=== PATIENT | male | born 1955 | race Caucasian/White ===

== ENCOUNTER 2019-06-03 10:01 | Outpatient (REF) | payer MEDICARE, SELFPAY ==
[2019-06-03 13:16] LABS: Chol HDL Ratio 6.62 mg/dL (1.0-5.00); Cholesterol 192 mg/dL (0-200); Glucose 111 mg/dL (65-115); HDL Cholesterol 29 mg/dL (60-100); LDL Cholesterol Calculated 139 mg/dL (50-129); LDL HDL Ratio 4.79 RATIO (0.00-3.22); Triglycerides 118 mg/dL (0-150)
[2019-06-03 13:27] LABS: Estmated Average Glucose 143; Hemoglobin A1C 6.6 % (4.0-6.0)
== END 2019-06-03 10:02 | disposition home or self-care (01) ==
LOC: LAB 10:01
PROVIDERS: Family Provider Family Medicine; PCP Family Medicine; Visit Provider Dermatology
DX: Z01.89 Encounter for other specified special examinations (principal)
CPT/HCPCS: 80061; 82947; 83036

== ENCOUNTER → 2019-06-14 12:58 | Outpatient (BNVA) | payer MEDICARE, SELFPAY | PROVIDERS: Family Provider Family Medicine; PCP Family Medicine; Visit Provider Anesthesiology | DX: M48.062 Spinal stenosis, lumbar region with neurogenic claudication (principal); M79.651 Pain in right thigh; M79.652 Pain in left thigh; Z79.891 Long term (current) use of opiate analgesic | CPT/HCPCS: 99214 ==

== ENCOUNTER 2019-06-24 03:25 | Emergency (ER) | payer MEDICARE, SELFPAY ==
[2019-06-24 03:32] VITALS: BP 168/100; PULSE 89; RESP 18; O2SAT 97; BMI 37.3
--- NOTE | 2019-06-24 03:35 | PC.NURSE ---
Patient dc'd home in stable condition, dressing in place, no bleeding noted. Home care explained to patient with all questions asked and answered.
--- NOTE | 2019-06-24 03:52 | ED_ITS ---
HPI - Extremity Problem General: Chief complaint: Extremity Injury, Lower Stated complaint: LEFT LEG BLEEDING Time Seen by Provider: 06/24/19 03:30 History of Present Illness: HPI Narrative: Patient has swelling to bilateral lower extremities. Had area on his left leg that started draining couple days ago. Informed scab. He scratched off tonight and then the wound started bleeding and he can get it stopped bleeding prior about 45 minutes ago. He comes in with dressing on that wound. Patient checked his INR prior to coming in and it was 3.3 approximately 1 hour ago. MD Complaint: other (Bleeding wound left lower leg.) Location: left Associated symptoms: Deny fever(s) Review of Systems Narrative: Bleeding wound to left lower leg times minutes to hours. Const: Denies: fever or chills Card: Reports: other (Edema chronic) [facility] PFSH: Medical History (Updated 06/24/19 @ 03:52 by LUIS ANGEL Dodge) Atrial fibrillation Encounter for long-term use of opiate analgesic Opioid contract exists Spinal stenosis, lumbar region with neurogenic claudication Surgical History (Updated 06/14/19 @ 13:40 by Christian Hendricks MD) S/P CABG x 3 Status post endovenous radiofrequency ablation of saphenous vein Family History (Updated 06/14/19 @ 13:34 by Violet Biggs LPN) Other CAD (coronary artery disease) Hypertension Lung disease Social History (Updated 06/14/19 @ 13:34 by Violet Biggs LPN) Smoking and tobacco status: never smoked Alcohol intake: unknown Physical Exam Const: COMMON NORMALS: no apparent distress Skin: NAILS: other (Wound to left lower leg that has been bleeding this evening/morning. Has history of bilateral pedal edema. 2+ edema. Wound is not actively bleeding as pencil lead side possibly to left lower extremity medial aspect about 1 inch above ankle joint) Course Vital Signs: Vital signs: Vital Signs Pulse Rate 89 06/24/19 03:32 Respiratory Rate 18 06/24/19 03:32 Blood Pressure 168/100 06/24/19 03:32 Pulse Oximetry 97 06/24/19 03:32 Discharge Plan Discharge Patient Disposition: Home, Self-Care Clinical Impression: Leg wound, left Qualifiers: Encounter type: initial encounter Qualified Code(s): S81.802A - Unspecified open wound, left lower leg, initial encounter Condition: Stable Prescriptions: No Action tamsulosin 0.4 mg capsule 0.4 mg PO DAILY RF: 0 nitroglycerin [Nitrostat] 0.4 mg tablet, sublingual 0.4 mg SUBLINGUAL Q5M PRN (Reason: Chest Pain) RF: 0 metoprolol tartrate 50 mg tablet 50 mg PO BID RF: 0 digoxin [Digitek] 250 mcg (0.25 mg) tablet 250 mcg PO DAILY RF: 0 ezetimibe [Zetia] 10 mg tablet 10 mg PO DAILY RF: 0 aspirin [Adult Aspirin Regimen] 81 mg tablet,delayed release (DR/EC) 81 mg PO DAILY RF: 0 furosemide [Lasix] 40 mg tablet 40 mg PO DAILY PRN (Reason: swelling) RF: 0 potassium chloride 10 mEq tablet extended release 10 meq PO DAILY PRN (Reason: Hypokalemia) RF: 0 hydrocodone-acetaminophen 10-325 mg tablet 1 tab PO TID PRN (Reason: pain) 30 Days Qty: 90 RF: 0 hydrocodone-acetaminophen 10-325 mg tablet 1 tab PO TID PRN (Reason: pain) 30 Days Qty: 90 RF: 0 warfarin 1 mg tablet 1 mg PO DAILY RF: 0 warfarin 5 mg tablet 5 mg PO DAILY RF: 0 Discharge Orders: Discharge Order (Routine); Ordered 06/24/19 Ordered By: Osmel Gomez Referrals: Kamran Herman MD [Primary Care Provider] - Discharge Diet: Usual diet Discharge Activity: Increase activity as tolerated Patient Instructions: Wound Care (General) Activity Restrictions/Additional Instructions: Keep pressure dressing on for at least 24 hours. Continue to check warfarin as scheduled. Follow-up with family provider if no significant improvement. Coding Level of Care Code ED Housekeeping Supervisor [employer] for Chg Fwd Exam Expanded Problem Focused
== END 2019-06-24 04:44 | disposition home or self-care (01) ==
PROVIDERS: Emergency Provider Nurse Practitioner Family; Family Provider Family Medicine; PCP Family Medicine
DX: S81.802A Unspecified open wound, left lower leg, initial encounter (principal); I48.91 Unspecified atrial fibrillation; Z79.01 Long term (current) use of anticoagulants
CPT/HCPCS: 99281

== ENCOUNTER 2019-07-20 11:03 | Outpatient (CLI) | payer MEDICARE, SELFPAY ==
[2019-07-20 11:42] LABS: Basophils # 0.1 10^3/uL (0.0-0.1); Basophils % 0.6 %; Eosinophils # 0.1 10^3/uL (0.0-0.8); Eosinophils % 0.7 %; Hematocrit 50.4 % (42.0-52.0); Hemoglobin 16.7 g/dL (11.7-16.6); Lymphocytes # 1.7 10^3/uL (0.8-4.8); Lymphocytes % 20.4 %; Mean Corpuscular HGB Conc 33.1 g/dL (30.0-36.0); Mean Corpuscular Hemoglobin 30.9 pg (28.0-34.0); Mean Corpuscular Volume 93.3 fL (80-94); Mean Platelet Volume 9.1 fL (7.4-10.4); Monocytes # 0.7 10^3/uL (0.2-0.9); Monocytes % 7.7 %; Neutrophils % 70.2 %; Nucleated Red Blood Cells % 0 %; Platelet Count 288 10^3/cmm (130-400); Red Cell Distribution Width 13.5 % (12.1-15.1); White Blood Count 8.5 10^3/uL (4.0-10.0)
[2019-07-20 12:06] LABS: Procalcitonin 0.06 ng/mL (0-0.5)
[2019-07-20 12:17] LABS: Alanine Aminotransferase 32 U/L (0-41); Albumin Level 4.4 g/dL (3.5-5.2); Alkaline Phosphatase 107 IU/L (40-130); Anion Gap 18.1 (5-19); Aspartate Amino Transferase 21 U/L (0-40); Blood Urea Nitrogen 10 mg/dL (8-23); C Reactive Protein 3.3 mg/L (0.0-4.9); Calcium 9.8 mg/dL (8.5-10.5); Carbon Dioxide 22 mmol/L (22-29); Chloride 96 mmol/L (98-107); Globulin 3.5 g/dL (1.3-4.6); Glomerular Filtration Rate 167.4 mL/min (90-130); Glucose 121 mg/dL (65-115); Osmolality Calculated 271 mOsm/kg (285-295); Potassium 4.1 mmol/L (3.5-5.1); Sodium 132 mmol/L (136-145); Total Bilirubin 1.5 mg/dL (0.15-1.2); Total Protein 7.9 g/dL (6.6-8.7)
[2019-07-20 12:51] LABS: Erythrocyte Sedimentation Rate 16 mm/hr (0-10)
== END 2019-07-20 11:04 | disposition home or self-care (01) ==
PROVIDERS: Family Provider Family Medicine; PCP Family Medicine; Visit Provider Family Medicine
DX: A28.1 Cat-scratch disease (principal); R50.9 Fever, unspecified; I48.91 Unspecified atrial fibrillation; Z95.1 Presence of aortocoronary bypass graft; Z79.01 Long term (current) use of anticoagulants
CPT/HCPCS: 36415; 80053; 84145; 85025; 85610; 85651; 86140; 87400

== ENCOUNTER 2019-09-22 10:46 | Outpatient (CLI) | payer MEDICARE, SELFPAY ==
[2019-09-22 11:28] LABS: Anion Gap 15.1 (5-19); Blood Urea Nitrogen 16 mg/dL (8-23); Carbon Dioxide 25 mmol/L (22-29); Chloride 103 mmol/L (98-107); Digoxin 0.5 ng/mL (0.6-1.2); Glomerular Filtration Rate 167.4 mL/min (90-130); Glucose 107 mg/dL (65-115); Osmolality Calculated 285 mOsm/kg (285-295); Potassium 4.1 mmol/L (3.5-5.1); Sodium 139 mmol/L (136-145)
== END 2019-09-22 10:47 | disposition home or self-care (01) ==
LOC: LAB 10:52
PROVIDERS: PCP Family Medicine; Visit Provider Internal Medicine Cardiovascular Disease
DX: I50.9 Heart failure, unspecified (principal); I48.91 Unspecified atrial fibrillation; I25.10 Atherosclerotic heart disease of native coronary artery without angina pectoris
CPT/HCPCS: 36415; 80048; 80162

== ENCOUNTER → 2019-09-28 13:46 | Outpatient (BNVA) | payer MEDICARE, SELFPAY | PROVIDERS: PCP Family Medicine; Visit Provider Anesthesiology | DX: G89.29 Other chronic pain (principal); M48.062 Spinal stenosis, lumbar region with neurogenic claudication; M54.42 Lumbago with sciatica, left side; Z79.891 Long term (current) use of opiate analgesic | CPT/HCPCS: 99213; 99214 ==

== ENCOUNTER → 2019-12-07 13:09 | Outpatient (BNVA) | payer MEDICARE, SELFPAY | PROVIDERS: PCP Family Medicine; Visit Provider Anesthesiology | DX: G89.29 Other chronic pain (principal); M54.42 Lumbago with sciatica, left side; M48.062 Spinal stenosis, lumbar region with neurogenic claudication; Z79.891 Long term (current) use of opiate analgesic | CPT/HCPCS: 99213; 99214 ==

== ENCOUNTER → 2020-02-10 13:11 | Outpatient (BNVA) | payer MEDICARE, SELFPAY | PROVIDERS: PCP Family Medicine; Visit Provider Anesthesiology | DX: G89.29 Other chronic pain (principal); M48.062 Spinal stenosis, lumbar region with neurogenic claudication; Z79.891 Long term (current) use of opiate analgesic | CPT/HCPCS: 99212; 99214 ==

== ENCOUNTER → 2020-04-10 12:41 | Outpatient (BNVA) | payer MEDICARE, SELFPAY | PROVIDERS: PCP Family Medicine; Visit Provider Anesthesiology | DX: G89.29 Other chronic pain (principal); M54.42 Lumbago with sciatica, left side; M48.062 Spinal stenosis, lumbar region with neurogenic claudication; Z79.891 Long term (current) use of opiate analgesic; Z79.1 Long term (current) use of non-steroidal anti-inflammatories (NSAID) | CPT/HCPCS: 99212; 99214 ==

== ENCOUNTER 2020-05-01 15:38 | Emergency (ER) | payer MEDICARE, SELFPAY ==
[2020-05-01] VITALS (7 sets, daily range): BP systolic 128–183; BP diastolic 77–114; PULSE 91–117; RESP 18–22; TEMP 36.6; O2SAT 96–98; BMI 35.9
[2020-05-01 16:00] LABS: Glucose Point of Care 164 mg/dL (70-110)
--- NOTE | 2020-05-01 16:06 | PC.NURSE ---
stroke alert called
--- NOTE | 2020-05-01 16:09 | ECG_ITS ---
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 Tender: : 1955 Requested By: London Chin I Order Number: [id number] Reading MD: LOPEZ HORTON Measurements Intervals [place] Rate: 112 P: SD: QRS: -10 QRSD: 102 T: 136 QT: 328 QTc: 448 Interpretive Statements ATRIAL FIBRILLATION WITH RAPID VENTRICULAR RESPONSE MODERATE VOLTAGE CRITERIA FOR LVH, CONSIDER NORMAL VARIANT [MEETS CRITERIA IN ONE OF: R(aVL), S(V1), R(V5), R(V5/V6)+S(V1)] POSSIBLE SEPTAL MYOCARDIAL INFARCTION , OF INDETERMINATE AGE [30 ms Q WAVE IN V1/V2] MODERATE T-WAVE ABNORMALITY, CONSIDER LATERAL ISCHEMIA [-0.1+ mV T WAVE IN I/aVL/V5/V6] Compared to ECG 12/01/2018 18:34:21 T-wave abnormality now present Possible ischemia now present Left-axis deviation no longer present Myocardial infarct finding still present Electronically Signed On 05-01-2020 19:57:10 SHELTER MONITOR by LOPEZ HORTON [id number]
--- NOTE | 2020-05-01 16:09 | CTR_ITS ---
PROCEDURE INFORMATION: Exam: CT Head Without Contrast Exam date and time: 05/01/2020 4:13 PM Age: 65 years old Clinical indication: Altered mental status/memory loss and dizziness; Additional info: Symptoms of acute stroke TECHNIQUE: Imaging protocol: Computed tomography of the head without contrast. Radiation optimization: All CT scans at this facility use at least one of these dose optimization techniques: automated exposure control; mA and/or kV adjustment per patient size (includes targeted exams where dose is matched to clinical indication); or iterative reconstruction. Other technique: STROKE PROTOCOL was implemented. COMPARISON: No relevant prior studies available. RADIATION DOSE METRICS: Total DLP (mGy-cm): 1015.63 FINDINGS: Brain: 4.4 x 3.7 x 2.3 cm left parafalcine occipital lobe hematoma with surrounding edema with differential diagnosis including hemorrhagic amyloid angiopathy versus hemorrhagic infarct versus hemorrhagic metastasis versus spontaneous/hypertensive hemorrhage. Estimated volume 19 cc. No midline shift or significant mass effect. Mild cerebral atrophy and ischemic leukoencephalopathy. Cerebral ventricles: No ventriculomegaly. Bones/joints: Unremarkable. No acute fracture. Paranasal sinuses: Visualized sinuses are unremarkable. No fluid levels. Mastoid air cells: Visualized mastoid air cells are well aerated. Soft tissues: Unremarkable. CT/CT head wo con* [id number] IMPRESSION: 1. 4.4 x 3.7 x 2.3 cm left parafalcine occipital lobe hematoma with surrounding edema with differential diagnosis including hemorrhagic amyloid angiopathy versus hemorrhagic infarct versus hemorrhagic metastasis versus spontaneous/hypertensive hemorrhage. Estimated volume 19 cc. 2. No midline shift or significant mass effect. ASSESSMENT: ASPECTS (Bailey Stroke Program Early CT Score) is 10. Radiation Dose CTDIVOL = (mGy): DLP = 1015.63 (mGy-cm)
[2020-05-01 16:26] LABS: Basophils % 0.5 %; Eosinophils # 0.1 10^3/uL (0.0-0.8); Eosinophils % 1.6 %; Hematocrit 49.1 % (42.0-52.0); Hemoglobin 15.8 g/dL (11.7-16.6); Lymphocytes # 1.4 10^3/uL (0.8-4.8); Lymphocytes % 17.8 %; Mean Corpuscular HGB Conc 32.2 g/dL (30.0-36.0); Mean Corpuscular Hemoglobin 30.5 pg (28.0-34.0); Mean Corpuscular Volume 94.8 fL (80-94); Mean Platelet Volume 9.6 fL (7.4-10.4); Monocytes # 0.5 10^3/uL (0.2-0.9); Monocytes % 6.5 %; Neutrophils # 5.88 10^3/uL (1.8-7.7); Neutrophils % 73.2 %; Nucleated Red Blood Cells % 0 %; Platelet Count 277 10^3/cmm (130-400); Red Blood Count 5.18 10^6/uL (4.1-5.3); Red Cell Distribution Width 13.4 % (12.1-15.1)
[2020-05-01 16:41] LABS: INR 2.08 (0.8-1.2); Partial Thromboplastin Time 36.8 SECONDS (23.9-36.7)
[2020-05-01 16:44] LABS: Alanine Aminotransferase 54 U/L (0-41); Albumin Level 3.9 g/dL (3.5-5.2); Alkaline Phosphatase 121 IU/L (40-130); Anion Gap 10.5 (5-19); Aspartate Amino Transferase 34 U/L (0-40); Blood Urea Nitrogen 12 mg/dL (8-23); Calcium 9.2 mg/dL (8.5-10.5); Carbon Dioxide 28 mmol/L (22-29); Chloride 103 mmol/L (98-107); Globulin 3.6 g/dL (1.3-4.6); Glomerular Filtration Rate 135.2 mL/min (90-130); Glucose 165 mg/dL (65-115); Osmolality Calculated 289 mOsm/kg (285-295); Potassium 3.5 mmol/L (3.5-5.1); Sodium 138 mmol/L (136-145); Total Bilirubin 0.5 mg/dL (0.15-1.2); Total Protein 7.5 g/dL (6.6-8.7)
[2020-05-01] MEDS: esmolol drip 2,500 MG/250 ML PREMIX 29.9 MG IV (16:49)
[2020-05-01 16:56] LABS: Add Urine Microscopic? YES; Bilirubin Urine Neg (Negative); Blood Urine 2+ (Negative); Glucose Urine UA 1+ (Normal); Ketones Urine Negative (Negative); Leukocyte Esterase Urine Negative (Negative); Nitrate Urine Negative (Negative); Protein Urine Neg (Negative); Urine Appearance Clear (CLEAR); Urine Color Straw (Yellow); Urobilinogen Urine Norm (Negative)
[2020-05-01] MEDS: phytonadione (ADULT) 10 MG in sodium chloride 0.9% 50 ML 153 MG IV (17:01)
[2020-05-01 17:10] LABS: Digoxin 0.5 ng/mL (0.6-1.2)
[2020-05-01 17:11] LABS: Add Urine Culture? No; Bacteria Urine TRACE /hpf; Mucus Urine TRACE /hpf; RBC Urine 0-4 /hpf (0-2); Squamous Epithelial Cell Urine 0-4 /hpf (0-5)
[2020-05-01 17:25] LABS: Amphetamines Screen Urine Negative (Negative); Barbiturates Screen Urine Negative (Negative); Benzodiazepines Screen Urine Negative (Negative); Cocaine Screen Urine Negative (Negative); Opiate Screen Urine Positive (Negative); PCP Screen Urine Negative (Negative); THC Screen Urine Negative (Negative)
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
--- NOTE | 2020-05-01 19:08 | PC.NURSE ---
nurse refused to take report at this time, states for me to call back in 20 minutes
[2020-05-01 19:34] LABS: INR 1.41 (0.8-1.2)
--- NOTE | 2020-05-01 19:35 | PC.NURSE ---
report called to yassine ochoa
== END 2020-05-01 20:33 | disposition other institution (70) ==
LOC: ER 16:27
PROVIDERS: Emergency Provider Family Medicine; PCP Family Medicine
DX: R41.82 Altered mental status, unspecified (principal); Z79.01 Long term (current) use of anticoagulants; Z79.82 Long term (current) use of aspirin; I48.91 Unspecified atrial fibrillation; I10 Essential (primary) hypertension; Z95.1 Presence of aortocoronary bypass graft; R42 Dizziness and giddiness
CPT/HCPCS: 12345; 36415; 36416; 51702; 70450; 80053; 80162; 80306; 81001; 82962; 85025; 85610; 85730; 93005; 99283; 99291; 99292; J1953; J3430; J3490; J7168

== ENCOUNTER 2020-05-22 15:14 | Outpatient (CLI) | payer MEDICARE, SELFPAY ==
--- NOTE | 2020-05-22 15:00 | XR_ITS ---
WS: [id number] Exam: XR KUB [id number] Date/Time of Exam: 05/22/2020 3:36 PM Reason For Exam: STONES Comparison 01/11/2019. Tiny calcification superimpose both renal silhouettes most likely indicating bilateral renal calculi. These measure in the range of the 2 to 4 mm each. No sign of bowel obstruction or free air. Visualiz ed organ margins are intact. A segment of wire suture visualized in the upper left abdomen. Degenerat zac changes of the spine and hips. XR/XR KUB [id number] IMPRESSION: 1. Small calcification superimpose both kidneys and most likely represent multi ple bilateral renal stones. 2. No acute abdominal process.
== END 2020-05-22 15:15 | disposition home or self-care (01) ==
LOC: RAD 15:24
PROVIDERS: PCP Family Medicine; Visit Provider Urology
DX: N20.0 Calculus of kidney (principal); Z12.5 Encounter for screening for malignant neoplasm of prostate
CPT/HCPCS: 74018; 81003; G0103

== ENCOUNTER → 2020-05-29 13:05 | Outpatient (BNVA) | payer MEDICARE, SELFPAY | PROVIDERS: PCP Family Medicine; Visit Provider Anesthesiology | DX: G89.29 Other chronic pain (principal); M48.062 Spinal stenosis, lumbar region with neurogenic claudication; Z79.891 Long term (current) use of opiate analgesic | CPT/HCPCS: 99213 ==

== ENCOUNTER → 2020-08-03 13:12 | Outpatient (BNVA) | payer MEDICARE, SELFPAY | PROVIDERS: PCP Family Medicine; Visit Provider Anesthesiology | DX: G89.29 Other chronic pain (principal); M48.062 Spinal stenosis, lumbar region with neurogenic claudication; Z79.891 Long term (current) use of opiate analgesic | CPT/HCPCS: 99213 ==

== ENCOUNTER 2020-08-28 20:44 | Emergency (ER) | payer MEDICARE, SELFPAY ==
--- NOTE | 2020-08-28 20:45 | XRR_ITS ---
PROCEDURE INFORMATION: Exam: XR Chest Exam date and time: 08/28/2020 8:49 PM Age: 65 years old Clinical indication: Other: Sweating, n/v, weakness; Prior surgery; Surgery type: Cabg, stents; Additional info: Diaphoresis, weakness TECHNIQUE: Imaging protocol: XR of the chest. Views: 1 view. COMPARISON: 1. CR Chest 1 [place] [id number] 2018-12-01 16:40 2. CR Chest 1 [place] [id number] 2015-12-21 02:53 3. CR Chest 1 [place] [id number] 2014-10-14 15:12 4. CR Chest 2 views* [id number] 2014-08-27 15:50 FINDINGS: Lungs: Lingular and left lower lobe and right lower lobe infiltrates. Pleural spaces: Unremarkable. No pleural effusion. No pneumothorax. Heart/Mediastinum: See Bones/joints finding. Moderate cardiac enlargement. Bones/joints: Sternotomy wires and mediastinal surgical clips are present, consistent with previous coronary arterial bypass grafting. XR/XR chest 1V portable [id number] IMPRESSION: Lingular and left lower lobe and right lower lobe infiltrates.
--- NOTE | 2020-08-28 20:45 | ECG_ITS ---
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 Measurements Intervals Sanders Rate: 70 P: NM: QRS: -14 QRSD: 113 T: 41 QT: 408 QTc: 441 Interpretive Statements ATRIAL FIBRILLATION MODERATE INTRAVENTRICULAR CONDUCTION DELAY [105+ ms QRS DURATION, 80+ ms Q/S IN V1/V2, NO Q AND 60+ ms R IN I/aVL/V5/V6] MODERATE ST DEPRESSION [0.05+ mV ST DEPRESSION] Compared to ECG 05/01/2020 15:50:34 Intraventricular conduction delay now present ST (T wave) deviation now present Myocardial infarct finding no longer present T-wave abnormality no longer present Possible ischemia no longer present Electronically Signed On 08-29-2020 8:03:52 CDT by Abdullahi Vickers M.D. [id number]
[2020-08-28 20:48] VITALS: BP 145/78; PULSE 70; RESP 18; TEMP 36.6; O2SAT 97; BMI 36.6
--- NOTE | 2020-08-28 20:55 | CTR_ITS ---
PROCEDURE INFORMATION: Exam: CT Head Without Contrast Exam date and time: 08/28/2020 9:14 PM Age: 65 years old Clinical indication: Patient HX: Dizziness with diaphoresis and weakness. History of CVA in April of 2020. ; Additional info: Dizzy, diaphoretic, generally weak TECHNIQUE: Imaging protocol: Computed tomography of the head without contrast. Radiation optimization: All CT scans at this facility use at least one of these dose optimization techniques: automated exposure control; mA and/or kV adjustment per patient size (includes targeted exams where dose is matched to clinical indication); or iterative reconstruction. COMPARISON: CT head wo con* [id number] 05/01/2020 4:10 PM RADIATION DOSE METRICS: Total DLP (mGy-cm): 1322.93 FINDINGS: Brain: A 2.5 cm area of hemorrhage is present in the medial right cerebellar hemisphere. Mild atrophy and mild white matter chronic microvascular changes are noted. No midline shift. Cerebral ventricles: No hydrocephalus Bones/joints: Unremarkable. No acute fracture. Paranasal sinuses: Visualized sinuses are unremarkable. No fluid levels. Mastoid air cells: Visualized mastoid air cells are well aerated. Soft tissues: Unremarkable. CT/CT head wo con* [id number] IMPRESSION: Right cerebellar hemorrhage. No midline shift. Radiation Dose CTDIVOL = (mGy): DLP = 1322.93 (mGy-cm)
[2020-08-28 21:03] LABS: Basophils # 0.1 10^3/uL (0.0-0.1); Basophils % 0.7 %; Eosinophils # 0.2 10^3/uL (0.0-0.8); Eosinophils % 1.8 %; Hematocrit 51.1 % (42.0-52.0); Hemoglobin 16.8 g/dL (11.7-16.6); Lymphocytes # 2.8 10^3/uL (0.8-4.8); Lymphocytes % 27.8 %; Mean Corpuscular HGB Conc 32.9 g/dL (30.0-36.0); Mean Corpuscular Hemoglobin 30.9 pg (28.0-34.0); Mean Corpuscular Volume 93.9 fL (80-94); Mean Platelet Volume 9.8 fL (7.4-10.4); Monocytes # 0.8 10^3/uL (0.2-0.9); Monocytes % 7.6 %; Neutrophils # 6.16 10^3/uL (1.8-7.7); Neutrophils % 61.8 %; Nucleated Red Blood Cells % 0 %; Platelet Count 325 10^3/cmm (130-400); Red Blood Count 5.44 10^6/uL (4.1-5.3); Red Cell Distribution Width 13.6 % (12.1-15.1)
[2020-08-28] MEDS: diphenhydrAMINE 50 mg/mL SDV 1mL IVP (21:05)
[2020-08-28] MEDS: ondansetron 2 mg/ML SDV 2 mL 4 MG IVP (21:06)
[2020-08-28] MEDS: LORazepam 2 mg/mL INJ 1 mL 1 MG IVP (21:06)
--- NOTE | 2020-08-28 21:07 | ED_ITS ---
HPI - Weakness General: Chief complaint: Weakness Stated complaint: WEAKNESS Time Seen by Provider: 08/28/20 20:44 Source: patient, EMS and RN notes reviewed History of Present Illness: HPI Narrative: 65-year-old male on warfarin and aspirin for atrial fibrillation who presents with generalized weakness starting at 8 AM this morning. Patient is diaphoretic, pale but is normotensive and has euglycemia. He has atrial fibrillation but is rate controlled with metoprolol. On review of systems, the patient feels the room is spinning. On close examination he has clockwise rotary nystagmus. His pupils are currently equal and round. Patient reports a recent history of brain bleed in April 2020. I have reviewed the chart and confirm this. Patient reports he is still on warfarin on select days. He denies any trauma. He denies any headache. He reports generalized nonfocal weakness without any acute sensory changes, confusion, trouble with understanding her speech. He denies black or bloody stools. He did have nausea and vomiting. His vomit was not bloody or coffee- ground. A rectal exam was performed at bedside and was negative. Patient denies chest pain or shortness of breath. He does have a history of CABG. Associated symptoms: Reports diaphoresis, nausea and vomiting; Denies chest pain, chills, confusion, dysuria, fever(s), headache(s) or syncope Review of Systems General: Reports: 10 or more systems reviewed and unremarkable except in HPI and below Const: Reports: fatigue, malaise and diaphoresis; Denies: fever(s) or chills Eyes: Reports: blurry vision and other (Blurry vision); Denies: eye redness Card: Reports: edema, swelling of feet/ankles (Chronic) and lightheadedness; Denies: chest pain, palpitations or syncope Resp: Denies: dyspnea, productive cough, non-productive cough, pain on inspiration or hemoptysis GI: Reports: nausea and vomiting; Denies: abdominal pain, hematemesis, coffee ground emesis, dysphagia, heartburn, diarrhea or bloating : Denies: flank pain, difficulty urinating, dysuria, urinary frequency or hematuria Musc: Reports: back pain (Patient reports lumbar, chronic, unchanged); Denies: neck pain or extremity pain Skin/Breast: Reports: changes in skin color; Denies: rash Neuro: Reports: weakness in extremities (Generalized everywhere), difficulty walking, dizziness and vertigo; Denies: headache(s), numbness in extremities, sensory changes, lack of coordination, confusion, behavioral changes, Slurred speech present, difficulty communicating thoughts, seizure-like activity or involuntary movements PFSH ED PFSH: Medical History (Updated 08/28/20 @ 21:33 by Danilo Saenz MD) Atrial fibrillation BPH loc w urin obs/LUTS BPH with obstruction/lower urinary tract symptoms Chronic low back pain CVA (cerebral vascular accident) Encounter for long-term use of opiate analgesic Erectile dysfunction History of CVA (cerebrovascular accident) HTN (hypertension) with goal to be determined Opioid contract exists Spinal stenosis, lumbar region with neurogenic claudication Urolithiasis Surgical History S/P CABG x 3 Status post endovenous radiofrequency ablation of saphenous vein Stented coronary artery Family History Other CAD (coronary artery disease) Hypertension Lung disease Social History Smoking and tobacco status: never smoked Second hand smoke exposure: No Alcohol intake: unknown Adopted: No Caregiver/support person: No Lives independently: No Household members: spouse Marital status: Current occupational status: employed History of recent travel: No Current gender identity: Male Physical Exam Const: COMMON NORMALS: alert EXAM LIMITATIONS: no altered mental status and no language barrier GENERAL APPEARANCE: cooperative, in distress (Extremely weak, feels like things are in slow motion), ill appearing and diaphoretic; no odor of alcohol detected NUTRITIONAL APPEARANCE: obese ORIENTATION/CONSCIOUSNESS: Yes awake, Yes oriented to person, Yes oriented to place and Yes oriented to time HENMT: COMMON NORMALS: normocephalic, atraumatic, external ears normal and Normal external nose present HEAD & SCALP: normal to inspection, normocephalic and atraumatic; no abrasion, no Hoffman's sign, no contusion, no hematoma, no palpable skull fracture and no raccoon eyes FACE & SINUS: normal facial exam and face symmetric NOSE: Normal external nose present; no Nasal discharge present and no Epistaxis present EXTERNAL EAR: Yes external ears normal MOUTH: Normal oral and palatal mucosa present and moist mucous membranes abnormal; no drooling THROAT: uvula midline Eye: COMMON NORMALS: conjunctivae normal and no scleral icterus GENERAL EYE: appearance normal, both eyes and all related structures CONJUNCTIVA: Yes conjunctivae normal OTHER: Patient has equal and round pupils. However extraocular movements are abnormal with clockwise binocular rotary nystagmus from the examiner's viewpoint. There is also some left beating horizontal nystagmus. The patient is able to track my fingers to some degree but it makes him extremely dizzy. Neck/C-Spine: COMMON NORMALS: full ROM, no meningeal signs and no JVD GENERAL: Yes normal visual inspection and Yes trachea midline Resp: COMMON NORMALS: No use of accessory muscles and clear to auscultation bilaterally EFFORT & INSPECTION: Yes able to speak in complete sentences, Yes symmetric chest movement, Yes tachypneic and No respiratory distress AUSCULTATION: clear to auscultation bilaterally Cardio: COMMON NORMALS: no JVD, regular rate and regular rhythm RATE: regular rate RHYTHM: regular rhythm PERIPHERAL PULSES: radial pulses present GI: COMMON NORMALS: Soft to palpation INSPECTION: Yes normal to inspection PALPATION: Yes Soft to palpation, Yes Tenderness to palpation present (GI) (Palpation around the periumbilical region causes urge to defecate), No Guarding due to palpation present (GI), Yes Palpable mass present (? small hernia supraub milical) and No Pulsatile mass present RECTAL EXAM: Yes heme negative stool Back/Pelvis: OTHER: no midline tenderness but with PROM Extremity: COMMON NORMALS: normal to inspection GENERAL: Yes normal exam except as noted Neuro: COMMON NORMALS: moves all extremities, no focal motor deficits and no sensory deficits noted SENSORIUM/ORIENTATION: Yes alert, Yes oriented to person, Yes oriented to place and Yes oriented to time MENINGEAL SIGNS: Yes no meningeal signs CRANIAL NERVES: Yes CN normal except as noted (rotary nystagmus) SPEECH: speech normal GAIT: Yes Unable to assess gait Psych: COMMON NORMALS: mental status grossly normal, Normal thought process present, cooperative, normal affect and speech normal SPEECH: Yes normal speech THOUGHT PROCESS: Normal thought process present Skin: COMMON NORMALS: no rashes or lesions noted, turgor normal and no jaundice GENERAL SKIN EXAM: no rashes or lesions noted and turgor normal Course Vital Signs: Vital signs: Vital Signs Temperature 97.9 F 08/28/20 20:48 Pulse Rate 70 08/28/20 20:48 Respiratory Rate 18 08/28/20 20:48 Blood Pressure 145/78 08/28/20 20:48 Pulse Oximetry 97 08/28/20 20:48 MDM - Weakness MDM Narrative: Medical decision making narrative: GCS 15 NIH--only deficits are weakness in all extremities (drift on all) and rotary nystagmus Patient is diaphoretic generally weak and has rotary nystagmus. Exam was negative for blood. His abdomen does not suggest ruptured aortic aneurysm or dissection. We have emergently taken the patient over for CT scan of the head without contrast. Patient has an active bleed in the left occipital parietal region. This appears to be surrounded by some edema. Currently there is no significant mass-effect. Question whether there is involved tumor. Patient will need to be emergently transferred to facility with neurosurgery in the event that the bleeding worsens. Patient is anticoagulated on warfarin. He will be given 1500 mg of Kcentra. Patient's blood pressure is in the 140s. He will be started on Cardene with a maximum systolic pressure of 120. Dr. Graves at [facility] emergency department has accepted for time critical diagnosis. We have contacted [facility] and the patient will be flown by helicopter. Dr. Graves has accepted at 9:28 PM. Patient is in agreement with the plan. He is full code. Lab Data: Labs: Lab Results 08/28/20 08/28/20 08/28/20 Range/Units 20:34 20:34 20:34 WBC 10.0 (4.0-10.0) 10^3/ uL RBC 5.44 H (4.1-5.3) 10^6/u L Hgb 16.8 H (11.7-16.6) g/dL Hct 51.1 (42.0-52.0) % MCV 93.9 (80-94) fL MCH 30.9 (28.0-34.0) pg MCHC 32.9 (30.0-36.0) g/dL RDW 13.6 (12.1-15.1) % Plt Count 325 (130-400) 10^3/c mm MPV 9.8 (7.4-10.4) fL Neut % (Auto) 61.8 % Lymph % (Auto) 27.8 % Coke % (Auto) 7.6 % Eos % (Auto) 1.8 % Baso % (Auto) 0.7 % Neut # (Auto) 6.16 (1.8-7.7) 10^3/u L Lymph # (Auto) 2.8 (0.8-4.8) 10^3/u L Coke # (Auto) 0.8 (0.2-0.9) 10^3/u L Eos # (Auto) 0.2 (0.0-0.8) 10^3/u L Baso # (Auto) 0.1 (0.0-0.1) 10^3/u L Nucleated RBC % (a uto) 0 % Nucleated RBCs # 0.0 /100WBC Sodium 139 (136-145) mmol/L Potassium 3.7 (3.5-5.1) mmol/L Chloride 101 (98-107) mmol/L Carbon Dioxide 26 (22-29) mmol/L Anion Gap 15.7 (5-19) BUN 17 (8-23) mg/dL Calculated Osmolal ity 291 (285-295) mOsm/k g Calcium 8.7 (8.5-10.5) mg/dL Total Bilirubin 0.5 (0.15-1.2) mg/dL AST 37 (0-40) U/L Alkaline Phosphata se 124 (40-130) IU/L Troponin T Baselin e 24 H (0-15) ng/L Total Protein 7.5 (6.6-8.7) g/dL Albumin 4.5 (3.5-5.2) g/dL Globulin 3.0 (1.3-4.6) g/dL Imaging Data^: CXR: Attestation: I personally reviewed and interpreted this imaging study as follows: My impression: effacement of the left heart boarder by infiltrate/edema CT Head: Attestation: I personally reviewed and interpreted this imaging study as follows: My impression: active hemorrhage in the left occipitoparietal region with surrounding edema and ? tumor EKG Data^: EKG 1: Attestation: I personally reviewed and interpreted this EKG as follows: Interpretation: Atrial fibrillation, rate 70, normal axis, no concerning ST segment elevations or depressions. Critical Care Time Critical Care Time: Critical Care Time: Yes Total Critical Care Time: 70 Attestation: Rapid assessment and complex MDM with prioritizing of workup, diagnosis, rapid intervention to reduce anticoagulation, control BP, and arrange air-evac transport to neurosurgery capable facility--[facility]. Discharge Plan Discharge Patient Disposition: Transfer to ED Clinical Impression: Intracranial hemorrhage, On warfarin for atrial fibrillation, Rotary nystagmus, Full code status Atrial fibrillation Qualifiers: Atrial fibrillation type: persistent (not longstanding) Qualified Code(s): I48.19 - Other persistent atrial fibrillation Condition: Serious Prescriptions: No Action (DME) glucometer testing kit: strips #100 refill:3 , lancets#100 refills:#100 Qty: 1 RF: 0 metoprolol tartrate 50 mg tablet 50 mg PO BID RF: 0 hydrocodone-acetaminophen 10-325 mg tablet 1 tab PO TID PRN (Reason: pain) 30 Days Qty: 90 RF: 0 hydrocodone-acetaminophen 10-325 mg tablet 1 tab PO TID PRN (Reason: pain) 30 Days Qty: 90 RF: 0 digoxin [Digitek] 250 mcg (0.25 mg) tablet 250 mcg PO DAILY 90 Days Qty: 90 RF: 3 potassium chloride 10 mEq tablet extended release 10 meq PO DAILY PRN (Reason: Hypokalemia) Qty: 90 RF: 3 nitroglycerin [Nitrostat] 0.4 mg tablet, sublingual 0.4 mg SUBLINGUAL Q5M PRN (Reason: Chest Pain) Qty: 25 RF: 3 warfarin 1 mg tablet 1 mg PO DAILY Qty: 30 RF: 3 aspirin [Adult Low Dose Aspirin] 81 mg tablet,delayed release (DR/EC) 81 mg PO DAILY Qty: 90 RF: 3 ezetimibe [Zetia] 10 mg tablet 10 mg PO DAILY Qty: 90 RF: 3 furosemide [Lasix] 40 mg tablet 40 mg PO DAILY PRN (Reason: swelling) Qty: 90 RF: 3 Referrals: Leonidas Ramos MD [Hospitalist] - Coding Level of Care Code ED Other Spatial Scientist for Chg Fwd Exam Comprehensive
[2020-08-28 21:18] LABS: Troponin(5th) Baseline 24 ng/L (0-15)
[2020-08-28 21:26] LABS: Alanine Aminotransferase 55 U/L (0-41); Albumin Level 4.5 g/dL (3.5-5.2); Alkaline Phosphatase 124 IU/L (40-130); Anion Gap 15.7 (5-19); Aspartate Amino Transferase 37 U/L (0-40); Blood Urea Nitrogen 17 mg/dL (8-23); Calcium 8.7 mg/dL (8.5-10.5); Carbon Dioxide 26 mmol/L (22-29); Chloride 101 mmol/L (98-107); Glomerular Filtration Rate 135.2 mL/min (90-130); Glucose 130 mg/dL (65-115); NT Pro B Type Natriuretic Pept 423 pg/mL (0-125); Osmolality Calculated 291 mOsm/kg (285-295); Potassium 3.7 mmol/L (3.5-5.1); Sodium 139 mmol/L (136-145); Total Bilirubin 0.5 mg/dL (0.15-1.2); Total Protein 7.5 g/dL (6.6-8.7)
[2020-08-28 21:37] LABS: INR 2.23 (0.8-1.2)
[2020-08-28] MEDS: nicardipine 20 MG/200 ML PREMIX 50 MG IV (21:42)
--- NOTE | 2020-08-28 21:45 | ED_ITS ---
HPI - Weakness General: Chief complaint: Weakness Stated complaint: WEAKNESS Time Seen by Provider: 08/28/20 20:44 Source: patient, EMS and RN notes reviewed [facility] ED PFSH: Medical History Atrial fibrillation BPH loc w urin obs/LUTS BPH with obstruction/lower urinary tract symptoms Chronic low back pain CVA (cerebral vascular accident) Encounter for long-term use of opiate analgesic Erectile dysfunction History of CVA (cerebrovascular accident) HTN (hypertension) with goal to be determined Intracerebral hemorrhage Opioid contract exists Spinal stenosis, lumbar region with neurogenic claudication Urolithiasis Surgical History S/P CABG x 3 Status post endovenous radiofrequency ablation of saphenous vein Stented coronary artery Family History Other CAD (coronary artery disease) Hypertension Lung disease Social History (Updated 10/11/20 @ 14:15 by Sasha Baker LPN) Smoking and tobacco status: never smoked Second hand smoke exposure: No Alcohol intake: never Adopted: No Caregiver/support person: No Lives independently: No Household members: spouse Marital status: Current occupational status: employed History of recent travel: No Current gender identity: Male Course Vital Signs: Vital signs: Vital Signs Temperature 97.9 F 08/28/20 20:48 Pulse Rate 70 08/28/20 22:11 Respiratory Rate 14 08/28/20 22:11 Blood Pressure 136/86 08/28/20 22:11 Pulse Oximetry 98 08/28/20 22:11 MDM - Weakness Lab Data: Labs: Lab Results 08/28/20 08/28/20 08/28/20 Range/Units 20:34 20:34 20:34 WBC 10.0 (4.0-10.0) 10^3/ uL RBC 5.44 H (4.1-5.3) 10^6/u L Hgb 16.8 H (11.7-16.6) g/dL Hct 51.1 (42.0-52.0) % MCV 93.9 (80-94) fL MCH 30.9 (28.0-34.0) pg MCHC 32.9 (30.0-36.0) g/dL RDW 13.6 (12.1-15.1) % Plt Count 325 (130-400) 10^3/c mm MPV 9.8 (7.4-10.4) fL Neut % (Auto) 61.8 % Lymph % (Auto) 27.8 % Valley % (Auto) 7.6 % Eos % (Auto) 1.8 % Baso % (Auto) 0.7 % Neut # (Auto) 6.16 (1.8-7.7) 10^3/u L Lymph # (Auto) 2.8 (0.8-4.8) 10^3/u L Valley # (Auto) 0.8 (0.2-0.9) 10^3/u L Eos # (Auto) 0.2 (0.0-0.8) 10^3/u L Baso # (Auto) 0.1 (0.0-0.1) 10^3/u L Nucleated RBC % (a uto) 0 % Nucleated RBCs # 0.0 /100WBC PT (12.1-14.9) SECO NDS INR (0.8-1.2) Sodium 139 (136-145) mmol/L Potassium 3.7 (3.5-5.1) mmol/L Chloride 101 (98-107) mmol/L Carbon Dioxide 26 (22-29) mmol/L Anion Gap 15.7 (5-19) BUN 17 (8-23) mg/dL Creatinine 0.6 L (0.7-1.2) mg/dL GFR Calculation 135.2 H (90-130) mL/min Glucose 130 H (65-115) mg/dL Calculated Osmolal ity 291 (285-295) mOsm/k g Lactic Acid (0.5-2.2) mmol/L Calcium 8.7 (8.5-10.5) mg/dL Total Bilirubin 0.5 (0.15-1.2) mg/dL AST 37 (0-40) U/L ALT 55 H (0-41) U/L Alkaline Phosphata se 124 (40-130) IU/L Troponin T Baselin e 24 H (0-15) ng/L NT-Pro-B Natriuret Pep 423 H (0-125) pg/mL Total Protein 7.5 (6.6-8.7) g/dL Albumin 4.5 (3.5-5.2) g/dL Globulin 3.0 (1.3-4.6) g/dL Blood Type Rho(D) Type Antibody Screen 08/28/20 08/28/20 08/28/20 Range/Units 21:21 21:21 21:21 WBC (4.0-10.0) 10^3/ uL RBC (4.1-5.3) 10^6/u L Hgb (11.7-16.6) g/dL Hct (42.0-52.0) % MCV (80-94) fL MCH (28.0-34.0) pg MCHC (30.0-36.0) g/dL RDW (12.1-15.1) % Plt Count (130-400) 10^3/c mm MPV (7.4-10.4) fL Neut % (Auto) % Lymph % (Auto) % Valley % (Auto) % Eos % (Auto) % Baso % (Auto) % Neut # (Auto) (1.8-7.7) 10^3/u L Lymph # (Auto) (0.8-4.8) 10^3/u L Valley # (Auto) (0.2-0.9) 10^3/u L Eos # (Auto) (0.0-0.8) 10^3/u L Baso # (Auto) (0.0-0.1) 10^3/u L Nucleated RBC % (a uto) % Nucleated RBCs # /100WBC PT 25.10 H (12.1-14.9) SECO NDS INR 2.23 H (0.8-1.2) Sodium (136-145) mmol/L Potassium (3.5-5.1) mmol/L Chloride (98-107) mmol/L Carbon Dioxide (22-29) mmol/L Anion Gap (5-19) BUN (8-23) mg/dL Creatinine (0.7-1.2) mg/dL GFR Calculation (90-130) mL/min Glucose (65-115) mg/dL Calculated Osmolal ity (285-295) mOsm/k g Lactic Acid 1.6 (0.5-2.2) mmol/L Calcium (8.5-10.5) mg/dL Total Bilirubin (0.15-1.2) mg/dL AST (0-40) U/L ALT (0-41) U/L Alkaline Phosphata se (40-130) IU/L Troponin T Baselin e (0-15) ng/L NT-Pro-B Natriuret Pep (0-125) pg/mL Total Protein (6.6-8.7) g/dL Albumin (3.5-5.2) g/dL Globulin (1.3-4.6) g/dL Blood Type O Positive Rho(D) Type Positive / 4+ Antibody Screen Negative Discharge Plan Discharge Patient Disposition: Transfer to ED Clinical Impression: Intracranial hemorrhage, On warfarin for atrial fibrillation, Rotary nystagmus, Full code status Atrial fibrillation Qualifiers: Atrial fibrillation type: persistent (not longstanding) Qualified Code(s): I48.19 - Other persistent atrial fibrillation Condition: Serious Prescriptions: No Action (DME) glucometer testing kit: strips #100 refill:3 , lancets#100 refills:#100 Qty: 1 RF: 0 metoprolol tartrate 50 mg tablet 50 mg PO BID RF: 0 hydrocodone-acetaminophen 10-325 mg tablet 1 tab PO TID PRN (Reason: pain) 30 Days Qty: 90 RF: 0 hydrocodone-acetaminophen 10-325 mg tablet 1 tab PO TID PRN (Reason: pain) 30 Days Qty: 90 RF: 0 ondansetron 4 mg tablet,disintegrating 4 mg PO Q8H RF: 0 meclizine 12.5 mg tablet 12.5 mg PO DAILY PRNRF: 0 citalopram 10 mg tablet 10 mg PO DAILY Qty: 30 RF: 2 warfarin 1 mg tablet 1 mg PO DAILY Qty: 30 RF: 3 ezetimibe [Zetia] 10 mg tablet 10 mg PO DAILY Qty: 90 RF: 3 furosemide [Lasix] 40 mg tablet 40 mg PO DAILY PRN (Reason: swelling) Qty: 90 RF: 3 digoxin [Digitek] 250 mcg (0.25 mg) tablet 250 mcg PO DAILY 90 Days Qty: 90 RF: 3 Referrals: Leonidas Ramos MD [Hospitalist] - Coding Level of Care Code ED Examination Proctor for Chg Ling
[2020-08-28 21:47] LABS: Lactic Sepsis W/Reflex 1.6 mmol/L (0.5-2.2)
[2020-08-28 22:11] VITALS: BP 136/86; PULSE 70; RESP 14; O2SAT 98
== END 2020-08-28 22:13 ==
PROVIDERS: Emergency Provider Emergency Medicine
DX: I48.19 Other persistent atrial fibrillation (principal); I62.9 Nontraumatic intracranial hemorrhage, unspecified; Z79.01 Long term (current) use of anticoagulants; H55.09 Other forms of nystagmus; Z79.82 Long term (current) use of aspirin; Z86.73 Personal history of transient ischemic attack (TIA), and cerebral infarction without residual deficits; I10 Essential (primary) hypertension; Z95.1 Presence of aortocoronary bypass graft
CPT/HCPCS: 70450; 71045; 80053; 83605; 83880; 84484; 85025; 85610; 86850; 86900; 93005; 96365; 96375; 99285; J1200; J2060; J2405; J7168

== ENCOUNTER → 2020-09-14 11:44 | Outpatient (BNVA) | payer MEDICARE, SELFPAY | PROVIDERS: Visit Provider Nurse Practitioner | DX: Z86.79 Personal history of other diseases of the circulatory system (principal) | CPT/HCPCS: 99204 ==

== ENCOUNTER 2020-10-02 10:47 | Outpatient (CLI) | payer MEDICARE, SELFPAY ==
--- NOTE | 2020-10-02 11:00 | CT_ITS ---
WS: [id number] CT HEAD TECHNIQUE: Noncontrast CT of the head obtained from the skullbase to the vertex. CLINICAL INFORMATION: I61.9 - Nontraumatic intracerebral hemorrhage, unspecified COMPARISON: August 28, 2020 DLP: 1058.[address] scans at [facility] use at least one of these dose optimization techniques: automat ed exposure control; mA and/or kV adjustment per patient size (includes targeted exams where dose is matched to clinical indication); or iterative reconstruction. FINDINGS: Previously described right cerebellar hemorrhage has resolved in the interim. No evidence o f new hemorrhage. No mass effect or midline shift. Encephalomalacia in the right cerebellum. Moderate small vessel changes. Mild parenchymal volume loss. Chronic lacunar infarcts in the bilatera l basal ganglia and thalami. Mastoid air cells and Paranasal sinuses are well aerated. CT/CT head wo con* [id number] IMPRESSION: 1. Previously described right cerebellar hemorrhage has resolved with a small amount of underlying encephalomalacia. 2. No evidence of new intracranial hemorrhage. 3. Moderate small vessel changes. Mild parenchymal volume loss. 4. Chronic lacunar infarcts in bilateral basal ganglia and thalami unchanged.
== END 2020-10-02 10:48 | disposition home or self-care (01) ==
PROVIDERS: Visit Provider Nurse Practitioner
DX: I61.9 Nontraumatic intracerebral hemorrhage, unspecified (principal); I63.81 Other cerebral infarction due to occlusion or stenosis of small artery
CPT/HCPCS: 70450

== ENCOUNTER → 2020-10-11 13:39 | Outpatient (BNVA) | payer MEDICARE, SELFPAY | PROVIDERS: Visit Provider Anesthesiology | DX: G89.29 Other chronic pain (principal); M48.062 Spinal stenosis, lumbar region with neurogenic claudication; Z79.891 Long term (current) use of opiate analgesic | CPT/HCPCS: 99213 ==

== ENCOUNTER 2020-11-23 07:02 | Outpatient (CLI) | payer MEDICARE, SELFPAY ==
--- NOTE | 2020-11-23 07:00 | XR_ITS ---
WS: [id number] XR KUB [id number] REASON FOR EXAM: STONES FINDINGS: Small calculus in the right kidney unchanged. Only one of the previously demonstrated left renal calculi is identifiable at this time overlying the lower pole. There are 2 calculi in the left pelvis which are not identifiable on previous KUBs of 05/22/2020 and . These may represent the calculi from the left kidney which were previously demonstrated as intrarenal. No other significant finding or interval change. XR/XR KUB [id number] IMPRESSION: Possible migration of 2 lower pole left renal calculi to the level of the left ureteral vesicle junction as above.
--- NOTE | 2020-11-23 09:00 | CT_ITS ---
WS: [id number] CT ABDOMEN PELVIS TECHNIQUE: Noncontrast CT of the abdomen and pelvis with coronal and sagittal reformatted images. CLINICAL INFORMATION: UROLITHIASIS COMPARISON: CT 8 7,019 DLP: 1874.[address] scans at [facility] use at least one of these dose optimization techniques: automat ed exposure control; mA and/or kV adjustment per patient size (includes targeted exams where dose is matched to clinical indication); or iterative reconstruction. FINDINGS: Hepatomegaly. Enlargement of the right hepatic lobe. Heterogeneous low-attenuation within both hepati c lobes worse in the right hepatic lobe inferiorly. This may be due to geographic fatty infiltration but is indeterminant and could be further evaluated with contrast-enhanced CT abdomen pelvis or alter natively ultrasound. Recommend correlation with liver function tests. Lung bases are well aerated. Sternotomy. Normal GE junction. Proximal duodenum is normal in appearanc e. Fatty atrophy of the pancreas. Normal gallbladder. Adrenal glands are normal. Obstructing calculus at the left UVJ measuring 3.9 mm. This is new from previous with mild left ureterectasis. No signifi cant hydronephrosis. Additional bilateral nonobstructing calyceal tip subcentimeter calculi. Right ur eter is decompressed. Enlarged calcified prostate with thickening of the seminal vesicles bilaterally. Prostate measures 4. 6 x 4.7 CM. Recommend correlation PSA. Normal caliber abdominal aorta. Aortic calcification. No peria ortic or retroperitoneal lymphadenopathy. No inguinal lymphadenopathy. Bladder is decompressed mild d iffuse bladder wall thickening. Moderate spondylitic changes lumbar spine. Mild lumbar curve. CT/CT kidney stone [id number] IMPRESSION: 1. Obstructing 4 mm left UVJ calculus new from previous with mild left uretere ctasis. No hydronephrosis. 2. No obstructing right renal or ureteral calculi. 3. Decompressed bladder with diffuse bladder wall thickening suspicious for bl adder outlet obstruction.. Enlarged prostate with thickening of the seminal ves icles. Recommend correlation for PSA. 4. Hepatomegaly with enlargement of the right hepatic lobe. Heterogeneous low- attenuation in both hepatic lobes nonspecific but may represent geographic fatt y infiltration. This can be further evaluated with contrast-enhanced CT or alte rnatively ultrasound. Recommend correlation with liver function tests. 5. No other significant changes from previous.
== END 2020-11-23 07:03 | disposition home or self-care (01) ==
PROVIDERS: Visit Provider Urology
DX: N20.9 Urinary calculus, unspecified (principal); N20.1 Calculus of ureter; N13.4 Hydroureter; R16.0 Hepatomegaly, not elsewhere classified
CPT/HCPCS: 74018; 74176; 81003; 87635

== ENCOUNTER → 2020-11-29 10:57 | Day surgery (SDC) | payer MEDICARE, SELFPAY ==
[2020-11-28 17:29] VITALS: BMI 35.9
--- NOTE | 2020-11-29 11:04 | XRR_ITS ---
PROCEDURE INFORMATION: Exam: XR Abdomen Exam date and time: 11/29/2020 11:04 AM Age: 65 years old Clinical indication: Condition or disease; Kidney or ureter condition; Calculus (stone) in ureter; Prior surgery; Surgery type: Triple bypass; Additional info: Left distal ureteral stones TECHNIQUE: Imaging protocol: XR of the abdomen. Views: Frontal supine view of the abdomen. 1 View. COMPARISON: 1. CR XR KUB [id number] 11/23/2020 7:[address] kidney stone [id number] 11/23/2020 9:12:39 AM FINDINGS: Tubes, catheters and devices: Surgical clips over the left upper quadrant. Gastrointestinal tract: Large amount of stool throughout the colon. No dilated loops of small bowel. No evidence of free air. Organs: Distal left ureteral calculi no longer visible. Prostate calcifications are noted. Punctate right lower pole calculus remains. Bones/joints: Lumbar degenerative changes. Median sternotomy wires. XR/XR KUB [id number] IMPRESSION: Distal left ureteral calculi no longer visible.
--- NOTE | 2020-11-29 11:44 | SUR.PREOP ---
1125 call received from romain at dr mccray's office,pt passed kidney stone and sx cancelled,pt down in radiology 1135 Gail(charge nurse in OR) notified that this pt's sx is cancelled and pt gone to dr mccray's office
== END ==
PROVIDERS: Visit Provider Urology
DX: Z53.8 Procedure and treatment not carried out for other reasons (principal); N20.0 Calculus of kidney
CPT/HCPCS: 74018; 82365; 88300

== ENCOUNTER → 2020-12-05 13:12 | Outpatient (BNVA) | payer MEDICARE, SELFPAY | PROVIDERS: Visit Provider Anesthesiology | DX: G89.29 Other chronic pain (principal); M48.062 Spinal stenosis, lumbar region with neurogenic claudication; Z79.891 Long term (current) use of opiate analgesic | CPT/HCPCS: 99213 ==

== ENCOUNTER 2020-12-12 14:23 | Outpatient (CLI) | payer MEDICARE, SELFPAY ==
--- NOTE | 2020-12-12 14:29 | XR_ITS ---
WS: [id number] HIP WITH PELVIS LEFT TECHNIQUE: 3 views of the left hip with pelvis CLINICAL INFORMATION: left hip pain COMPARISON: None. FINDINGS: Moderate degenerative arthritis left hip with joint space narrowing. Mild osteopenia. No acute fractu res. Visualized left pubic rami are normal. XR/XR hip LT 2-3V wo/w pel* [id number] IMPRESSION: Moderate degenerative arthritis left hip with joint space narrowing. Tonnis classification: grade 2: small cysts in femoral head/acetabulum or moder ate joint space narrowing or moderate loss of head sphericity
== END 2020-12-12 14:24 | disposition home or self-care (01) ==
PROVIDERS: Visit Provider Family Medicine Adult Medicine
DX: G89.29 Other chronic pain (principal); M16.12 Unilateral primary osteoarthritis, left hip; E11.9 Type 2 diabetes mellitus without complications; E78.5 Hyperlipidemia, unspecified; E66.9 Obesity, unspecified
CPT/HCPCS: 73502; 80053; 80061; 83036; 84443; 85025

== ENCOUNTER → 2021-01-15 14:55 | Outpatient (BNVA) | payer MEDICARE, SELFPAY | PROVIDERS: Referring Provider Family Medicine Adult Medicine; Visit Provider Orthopaedic Surgery | DX: M47.894 Other spondylosis, thoracic region (principal); M47.896 Other spondylosis, lumbar region; M47.897 Other spondylosis, lumbosacral region; M54.5 Low back pain; G89.29 Other chronic pain | CPT/HCPCS: 72110 ==

== ENCOUNTER 2021-01-30 08:59 | Outpatient (CLI) | payer MEDICARE, SELFPAY ==
--- NOTE | 2021-01-30 11:30 | CT_ITS ---
WS: [id number] CT of the lumbar spine, additional two-dimensional coronal and sagittal imaging was obtained. 01/31/20 Clinical Data: M54.5 - Low back pain Comparison: Lumbar spine, 01/15/2021. DLP: 1507.[address] scans at [facility] use at least one of these dose optimization techniques: automated e xposure control; mA and/or kV adjustment per patient size (includes targeted exams where dose is matc hed to clinical indication); or iterative reconstruction. Findings: There is degenerative disc change at T12-L1, L2-L3 and L5-S1. Osteoarthritic spurring of al l the lumbar vertebral bodies noted. There is a slight levoscoliosis. The transverse processes and SI joints are normal. There are no compression fractures. There is calcification of the wall of the abd ominal aorta but no aneurysm. T12-L1: No canal stenosis, disc bulge or foraminal narrowing is seen. L1-L2: No canal stenosis, disc bulge or foraminal narrowing is seen. L2-L3: There is disc osteophyte hypertrophy and facet joint hypertrophy causing canal and foraminal s tenosis. L3-L4: There is disc osteophyte protrusion with facet joint hypertrophy causing canal and foraminal s tenosis. L4-L5: There is disc osteophyte hypertrophy with facet joint hypertrophy causing canal and foraminal stenosis. L5-S1: There is disc osteophyte hypertrophy and facet joint hypertrophy causing canal and foraminal s tenosis. CT/CT lumbar spine wo con* [id number] Impression: 1. Multiple levels of degenerative disc disease. 2. Osteoarthritis of all the lumbar vertebral bodies. 3. Multiple levels of canal stenosis and foraminal stenosis.
== END 2021-01-30 09:00 | disposition home or self-care (01) ==
PROVIDERS: PCP Family Medicine Adult Medicine; Visit Provider Orthopaedic Surgery
DX: M51.36 Other intervertebral disc degeneration, lumbar region (principal); M47.816 Spondylosis without myelopathy or radiculopathy, lumbar region; M48.061 Spinal stenosis, lumbar region without neurogenic claudication
CPT/HCPCS: 72131

== ENCOUNTER → 2021-01-31 09:27 | Outpatient (BNVA) | payer MEDICARE, SELFPAY | PROVIDERS: PCP Family Medicine Adult Medicine; Visit Provider Anesthesiology | DX: G89.29 Other chronic pain (principal); M54.16 Radiculopathy, lumbar region; M48.062 Spinal stenosis, lumbar region with neurogenic claudication; Z79.891 Long term (current) use of opiate analgesic | CPT/HCPCS: 62323; J1040; J3490 ==

== ENCOUNTER → 2021-02-06 12:54 | Outpatient (BNVA) | payer MEDICARE, SELFPAY | PROVIDERS: PCP Family Medicine Adult Medicine; Visit Provider Anesthesiology | DX: G89.29 Other chronic pain (principal); M48.062 Spinal stenosis, lumbar region with neurogenic claudication; Z79.891 Long term (current) use of opiate analgesic | CPT/HCPCS: 99213 ==

== ENCOUNTER 2021-02-13 09:52 | Emergency (ER) | payer MEDICARE, SELFPAY ==
[2021-02-13 10:05] VITALS: BP 156/76; PULSE 75; RESP 18; TEMP 36.8; O2SAT 94; BMI 35.9
--- NOTE | 2021-02-13 10:15 | CT_ITS ---
WS: [id number] CT HEAD TECHNIQUE: Noncontrast CT of the head obtained from the skullbase to the vertex. CLINICAL INFORMATION: headache/hx intracranial bleeding COMPARISON: October 22, 2020 DLP: 1166.[address] scans at [facility] use at least one of these dose optimization techniques: automated e xposure control; mA and/or kV adjustment per patient size (includes targeted exams where dose is matc hed to clinical indication); or iterative reconstruction. FINDINGS: No evidence of intracranial hemorrhage or mass effect. Ventricular system and basal cisterns are whalen nt. Moderate small vessel changes with mild parenchymal volume loss. Chronic lacunar infarcts. No ext ra-axial fluid collections. No evidence of mass or mass effect. Normal chris-white differentiation. Paranasal sinuses and mastoid air cells are well aerated. .Normal visualized soft tissues. CT/CT head wo con* [id number] IMPRESSION: 1. No evidence of intracranial hemorrhage or mass effect. 2. Moderate small vessel changes. Mild parenchymal volume loss. 3. Chronic lacunar infarcts in the basal ganglia and left greater than right t halami. 4. No acute intracranial findings.
--- NOTE | 2021-02-13 10:18 | ED_ITS ---
HPI - Headache General: Chief Complaint: Headache Stated Complaint: SHARP PAINS IN HEAD:HX RECENT BRAIN BLEEDS Time Seen by Provider: 02/13/21 09:53 History of Present Illness: HPI Narrative: 65-year-old male presents to the emergency room with complaint of headache. Patient has a history of recent intracranial bleeds he had previously been on anticoagulants and these were stopped. He was on them due to atrial fibrillation. He has a right frontal headache for the last 2 days. He took a [place] an hour before coming in and it is improved some. MD elicited complaint: headache Onset description: gradually Location: frontal and temporal Severity: moderate Quality & Timing: throbbing Exacerbating factors: none Relieving factors: nothing Context: occurred at rest Associated symptoms: Deny chest pain, confusion, cough, diaphoresis, eye pain, eye redness, fever(s), lightheadedness, loss of vision, malaise, nausea, neck stiffness, numbness, paresthesias, photophobia, pre-syncope, rash, seizures, short of breath, sound sensitivity, syncope, vomiting or weakness Review of Systems Const: Denies: fever(s), malaise or diaphoresis ENMT: Denies: throat pain, ear or mastoid pain, nasal discharge or nasal congestion Card: Denies: chest pain, lightheadedness, syncope or pre-syncope Resp: Denies: dyspnea, productive cough or non-productive cough GI: Denies: nausea or vomiting : Denies: flank pain, dysuria, urinary frequency or urinary urgency Skin/Breast: Denies: rash Neuro: Denies: confusion PFSH ED PFSH: Medical History Atrial fibrillation BPH loc w urin obs/LUTS BPH with obstruction/lower urinary tract symptoms Cat scratch fever Chronic left hip pain Chronic low back pain CVA (cerebral vascular accident) Dyslipidemia (high LDL; low HDL) Encounter for long-term use of opiate analgesic Erectile dysfunction History of CVA (cerebrovascular accident) HTN (hypertension) with goal to be determined Intracerebral hemorrhage Left ureteral calculus Obesity Opioid contract exists S/P extracorporeal shock wave therapy Spinal stenosis, lumbar region with neurogenic claudication Urolithiasis Surgical History History of angioplasty S/P CABG x 3 S/P CABG x 3 Status post endovenous radiofrequency ablation of saphenous vein Stented coronary artery Family History Father , at age 68 Emphysema lung Mother , at age 49 Heart disease Other CAD (coronary artery disease) Hypertension Lung disease Social History Smoking and tobacco status: never smoked Second hand smoke exposure: No Alcohol intake: never Adopted: No Caregiver/support person: No Lives independently: No Household members: spouse Marital status: Current occupational status: retired History of recent travel: No Current gender identity: Male Physical Exam Const: COMMON NORMALS: no acute distress GENERAL APPEARANCE: cooperative and comfortable ORIENTATION/CONSCIOUSNESS: Yes awake, Yes oriented to person, Yes oriented to place and Yes oriented to time HENMT: COMMON NORMALS: normocephalic, atraumatic, hearing grossly normal bilaterally, external ears normal, EAC's normal, TM's normal bilaterally, Normal nasal mucous membranes and turbinates present, moist oral mucous membranes and oropharynx normal HEAD & SCALP: normocephalic and atraumatic NOSE: Normal nasal mucous membranes and turbinates present EXTERNAL EAR: Yes external ears normal EXTERNAL AUDITORY CANAL: EAC's normal TYMPANIC MEMBRANE: TM's normal bilaterally Eye: COMMON NORMALS: Equal, round and reactive pupils present, EOMs intact bilaterally, conjunctivae normal and no scleral icterus CONJUNCTIVA: Yes conjunctivae normal PUPIL: Yes Equal, round and reactive pupils present DIRECT OPHTHALMOSCOPY: No photophobia Neck/C-Spine: COMMON NORMALS: full ROM, no lymphadenopathy, supple and no JVD Lymph: LYMPHATIC: no lymphadenopathy noted and no lymphedema noted Resp: COMMON NORMALS: normal respiratory effort, No retractions, No use of accessory muscles and clear to auscultation bilaterally AUSCULTATION: clear to auscultation bilaterally Cardio: COMMON NORMALS: no JVD, regular rate, regular rhythm and No murmurs present (Cardio) RATE: regular rate RHYTHM: regular rhythm GI: COMMON NORMALS: Soft to palpation and No hepatosplenomegaly present AUSCULTATION: Yes normoactive bowel sounds PALPATION: Yes Soft to palpation, No Tenderness to palpation present (GI), No Guarding due to palpation present (GI) and Yes No hepatosplenomegaly present Extremity: COMMON NORMALS: normal to inspection, capillary refill normal, no clubbing, cyanosis or edema, no calf tenderness and no pedal edema Neuro: SENSORIUM/ORIENTATION: Yes oriented to person, Yes oriented to place and Yes oriented to time Skin: COMMON NORMALS: no rashes or lesions noted GENERAL SKIN EXAM: no rashes or lesions noted Course Vital Signs: Vital signs: Vital Signs Temperature 98.2 F 02/13/21 10:05 Pulse Rate 68 02/13/21 12:22 Respiratory Rate 16 02/13/21 12:22 Blood Pressure 126/80 02/13/21 12:22 Pulse Oximetry 93 02/13/21 12:22 MDM - Headache MDM Narrative: Medical decision making narrative: Repeat CT head does not show anything acute neurologically patient is intact. He is feeling some better [place] discharge patient home continue follow-up with primary care return if he has further problems. Discharge Plan Discharge Patient Disposition: Home Clinical Impression: Headache, Hemorrhagic cerebrovascular accident (CVA) Atrial fibrillation Qualifiers: Atrial fibrillation type: persistent (not longstanding) Qualified Code(s): I48.19 - Other persistent atrial fibrillation Condition: Stable Prescriptions: New promethazine 25 mg tablet 25 mg PO Q6H PRN (Reason: headache) Qty: 20 RF: 0 No Action (DME) glucometer testing kit: strips #100 refill:3 , lancets#100 refills:#100 Qty: 1 RF: 0 meclizine 12.5 mg tablet 12.5 mg PO DAILY PRN (Reason: Dizziness Or Vertigo) RF: 0 hydrocodone-acetaminophen 10-325 mg tablet 1 tab PO TID PRN (Reason: pain) 30 Days Qty: 90 RF: 0 hydrocodone-acetaminophen 10-325 mg tablet 1 tab PO TID PRN (Reason: pain) 30 Days Qty: 90 RF: 0 ezetimibe [Zetia] 10 mg tablet 10 mg PO DAILY@08 RF: 0 cholecalciferol (vitamin D3) 25 mcg (1,000 unit) capsule 25 mcg PO BEDTIME RF: 0 cinnamon bark [Cinnamon] 500 mg capsule 500 mg PO QAM RF: 0 pyridoxine (vitamin B6) 1 tab PO BEDTIME RF: 0 Vitamin C 1,000 mg Tablet 1,000 mg PO BEDTIME RF: 0 Fish Oil 2 - 3 cap PO QAM RF: 0 Vitamin B-12 1 tab PO QAM RF: 0 folic acid 1 tab PO QAM RF: 0 Lasix 40 mg tablet 20 mg PO DAILY PRN (Reason: swelling) RF: 0 Digitek 250 mcg (0.25 mg) tablet 250 mcg PO DAILY@08 RF: 0 metoprolol tartrate 50 mg tablet 75 mg PO Q12H RF: 0 Discharge Orders: Discharge ED (Routine); Ordered 02/13/21 Ordered By: Ben Mitchell Referrals: David Villela MD [Primary Care Provider] - Discharge Diet: Usual diet Discharge Activity: Resume usual activity Patient Instructions: Opioid Safety Coding Level of Care Code ED [employer] Delivery Specialist for Kamila Dubon NIH stroke score NIHSS Level Of Consciousness - 1a: 0 Level Of Consciousness Questions - 1b: Both Correct Level Of Consciousness Commands - 1c: Both Correct Best Gaze - 2: Normal Visual Daniel - 3: No Visual Loss Facial Palsy - 4: Normal Motor Arm Right - 5: No Drift Motor Arm Left - 5: No Drift Motor Leg Right - 6: No Drift Motor Leg Left - 6: No Drift Limb Ataxia - 7: Absent Sensory - 8: Normal Best Language - 9: No Aphasia Dysarthia - 10: Normal Extinction And Inattention - 11: 0 Score Total Score: 0
--- NOTE | 2021-02-13 10:56 | ECG_ITS ---
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: : 1955 Requested By: Ben Lua Order Number: [id number] Bob MD: LOPEZ HORTON Measurements Intervals [place] Rate: 73 P: [place]: QRS: -20 QRSD: 102 T: 73 QT: 385 QTc: 426 Interpretive Statements ATRIAL FIBRILLATION MINIMAL VOLTAGE CRITERIA FOR LVH, CONSIDER NORMAL VARIANT [MEETS CRITERIA IN ONE OF: R(aVL), S(V1), R(V5), R(V5/V6)+S(V1)] NONSPECIFIC ST & T-WAVE ABNORMALITY ABNORMAL RHYTHM ECG Compared to ECG 08/28/2020 20:49:04 T-wave abnormality now present Intraventricular conduction delay no longer present ST (T wave) deviation no longer present Electronically Signed On 02-14-2021 0:10:58 CDT by LOPEZ HORTON [id number] f
[2021-02-13 11:01] VITALS: BP 151/85; PULSE 66; RESP 16; O2SAT 94
[2021-02-13] MEDS: morphine 4 mg/mL SDV 1 mL IVP (11:39)
[2021-02-13] MEDS: promethazine 25 mg/mL SDV 1 mL IM (11:39)
[2021-02-13 11:42] VITALS: BP 145/90; PULSE 87; RESP 18; O2SAT 95
[2021-02-13 12:22] VITALS: BP 126/80; PULSE 68; RESP 16; O2SAT 93
== END 2021-02-13 12:24 | disposition home or self-care (01) ==
PROVIDERS: Emergency Provider Family Medicine; PCP Family Medicine Adult Medicine
DX: R51.9 Headache, unspecified (principal); I62.9 Nontraumatic intracranial hemorrhage, unspecified; I48.19 Other persistent atrial fibrillation; E78.5 Hyperlipidemia, unspecified; I10 Essential (primary) hypertension; Z95.1 Presence of aortocoronary bypass graft
CPT/HCPCS: 70450; 93005; 96372; 96374; 99283; J2270; J2550

== ENCOUNTER → 2021-05-14 13:41 | Outpatient (BNVA) | payer MEDICARE, SELFPAY | PROVIDERS: PCP Family Medicine Adult Medicine; Visit Provider Anesthesiology | DX: G89.29 Other chronic pain (principal); M48.062 Spinal stenosis, lumbar region with neurogenic claudication; Z79.891 Long term (current) use of opiate analgesic | CPT/HCPCS: 99213 ==

== ENCOUNTER → 2021-05-23 08:20 | Outpatient (BNVA) | payer MEDICARE, SELFPAY | PROVIDERS: PCP Family Medicine Adult Medicine; Visit Provider Anesthesiology | DX: G89.29 Other chronic pain (principal); Z79.891 Long term (current) use of opiate analgesic | CPT/HCPCS: 62323 ==

== ENCOUNTER → 2021-06-12 14:46 | Outpatient (BNVA) | payer MEDICARE, SELFPAY | PROVIDERS: PCP Family Medicine Adult Medicine; Visit Provider Family Medicine Adult Medicine | DX: I10 Essential (primary) hypertension (principal); I48.19 Other persistent atrial fibrillation; E11.9 Type 2 diabetes mellitus without complications; I63.9 Cerebral infarction, unspecified; G89.29 Other chronic pain; M48.062 Spinal stenosis, lumbar region with neurogenic claudication | CPT/HCPCS: 80053; 80162; 83036; 85025 ==

== ENCOUNTER → 2021-08-13 15:24 | Outpatient (BNVA) | payer MEDICARE, SELFPAY | PROVIDERS: PCP Family Medicine Adult Medicine; Visit Provider Internal Medicine | DX: I10 Essential (primary) hypertension (principal); I48.19 Other persistent atrial fibrillation; Z95.1 Presence of aortocoronary bypass graft; I48.91 Unspecified atrial fibrillation; I61.9 Nontraumatic intracerebral hemorrhage, unspecified | CPT/HCPCS: 80048; 83880; 99214 ==

== ENCOUNTER 2021-09-09 14:33 | Emergency (ER) | payer MEDICARE, SELFPAY ==
[2021-09-09 14:52] VITALS: BP 179/87; PULSE 86; RESP 20; TEMP 36.6; O2SAT 98; BMI 35.2
[2021-09-09 14:57] VITALS: BP 161/67; PULSE 81; RESP 18; O2SAT 98
--- NOTE | 2021-09-09 15:05 | CTR_ITS ---
PROCEDURE INFORMATION: Exam: CT Head Without Contrast Exam date and time: 09/09/2021 4:24 PM Age: 66 years old Clinical indication: Headache; Patient HX: HX strokes pain around right eye. HX of brain bleed TECHNIQUE: Imaging protocol: Computed tomography of the head without contrast. Radiation optimization: All CT scans at this facility use at least one of these dose optimization techniques: automated exposure control; mA and/or kV adjustment per patient size (includes targeted exams where dose is matched to clinical indication); or iterative reconstruction. COMPARISON: CT head wo con* [id number] 02/13/2021 10:23 AM RADIATION DOSE METRICS: Total DLP (mGy-cm): 731.94 FINDINGS: Brain: The sulci are within normal limits. Moderate hypodensities in supratentorial periventricular and subcortical white matter, consistent with microangiopathy. No intracranial hemorrhage. Chronic lacunar infarct in the left thalamus. Cerebral ventricles: No ventriculomegaly. Paranasal sinuses: Visualized sinuses are unremarkable. No fluid levels. Mastoid air cells: Visualized mastoid air cells are well aerated. Vasculature: No hyperdense artery. Bones/joints: Unremarkable. No acute fracture. Soft tissues: Unremarkable. CT/CT head wo con* [id number] IMPRESSION: No acute intracranial abnormality.
--- NOTE | 2021-09-09 15:05 | ECG_ITS ---
[facility] Test Date: 2021-09-09 Pat Name: En Worrell Department: Room: Gender: Male Inseminator: : 1955 Requested By: Jaqueline Lopez Order Number: [id number] Bob MD: Harriet Ballesteros M.D. Measurements Intervals [place] Rate: 76 P: [place]: QRS: -2 QRSD: 107 T: 68 QT: 392 QTc: 443 Interpretive Statements ATRIAL FIBRILLATION POSSIBLE ANTERIOR MYOCARDIAL INFARCTION , PROBABLY OLD Compared to ECG 02/13/2021 10:12:27 Myocardial infarct finding now present T-wave abnormality no longer present Electronically Signed On 09-09-2021 17:34:16 CDT by Harriet Ballesteros M.D. [id number]
--- NOTE | 2021-09-09 18:40 | ED_ITS ---
HPI - Headache General: Chief Complaint: Headache Stated Complaint: Thinks either a stoke or heart attack Time Seen by Provider: 09/09/21 18:40 PFSH ED PFSH: Medical History Atrial fibrillation BPH loc w urin obs/LUTS BPH with obstruction/lower urinary tract symptoms Cat scratch fever Chronic left hip pain Chronic low back pain CVA (cerebral vascular accident) Dyslipidemia (high LDL; low HDL) Encounter for long-term use of opiate analgesic Erectile dysfunction History of CVA (cerebrovascular accident) HTN (hypertension) with goal to be determined Intracerebral hemorrhage Left ureteral calculus Obesity Opioid contract exists S/P extracorporeal shock wave therapy Spinal stenosis, lumbar region with neurogenic claudication Urolithiasis Surgical History History of angioplasty S/P CABG x 3 S/P CABG x 3 Status post endovenous radiofrequency ablation of saphenous vein Stented coronary artery Family History Father , at age 68 Emphysema lung Mother , at age 49 Heart disease Other CAD (coronary artery disease) Hypertension Lung disease Social History Smoking and tobacco status: never smoked Second hand smoke exposure: No Alcohol intake: never Adopted: No Caregiver/support person: No Lives independently: No Household members: spouse Marital status: Current occupational status: retired History of recent travel: No Current gender identity: Male Course Vital Signs: Vital signs: Vital Signs Temperature 98 F 09/09/21 14:52 Pulse Rate 86 09/09/21 14:52 Respiratory Rate 20 H 09/09/21 14:52 Blood Pressure 179/87 09/09/21 14:52 Pulse Oximetry 98 09/09/21 14:52 MDM - Headache Lab Data Radiology Impressions Head CT 09/09/21 15:05 IMPRESSION: No acute intracranial abnormality. Discharge Plan Discharge Condition: Stable Prescriptions: No Action (DME) glucometer testing kit: strips #100 refill:3 , lancets#100 refills:#100 Qty: 1 0RF Rx Instructions: glucometer testing kit: strips #100 refill:3 , lancets#100 refills:#100 meclizine 12.5 mg tablet 12.5 mg PO DAILY PRN (Reason: Dizziness Or Vertigo) 0RF nitroglycerin [Nitrostat] 0.4 mg tablet, sublingual 0.4 mg SUBLINGUAL Q5M PRN (Reason: Chest Pain) Qty: 25 3RF cholecalciferol (vitamin D3) 25 mcg (1,000 unit) capsule 25 mcg PO BEDTIME 0RF cinnamon bark [Cinnamon] 500 mg capsule 500 mg PO QAM 0RF pyridoxine (vitamin B6) 1 tab PO BEDTIME 0RF Digitek 250 mcg (0.25 mg) tablet 250 mcg PO DAILY@08 Qty: 90 3RF ezetimibe [Zetia] 10 mg tablet 10 mg PO DAILY@08 Qty: 90 3RF Lasix 20 mg tablet 20 mg PO DAILY PRN (Reason: swelling) Qty: 90 3RF hydrocodone-acetaminophen 10-325 mg tablet 1 tab PO TID PRN (Reason: pain) 30 Days Qty: 90 0RF Rx Instructions: fill on or after 07/25/21 hydrocodone-acetaminophen 10-325 mg tablet 1 tab PO TID PRN (Reason: pain) 30 Days Qty: 90 0RF Rx Instructions: fill on or after 08/24/21 potassium chloride 10 mEq tablet extended release 10 meq PO DAILY PRN (Reason: Hypokalemia) Qty: 90 3RF metoprolol tartrate 50 mg tablet 75 mg PO BID Qty: 270 3RF Rx Instructions: @08:00,20:00 Vitamin C 1,000 mg Tablet 1,000 mg PO BEDTIME 0RF Fish Oil 2 - 3 cap PO QAM 0RF Vitamin B-12 1 tab PO QAM 0RF folic acid 1 tab PO QAM 0RF promethazine 25 mg tablet 25 mg PO Q6H PRN (Reason: headache) Qty: 20 0RF Referrals: David Villela MD [Primary Care Provider] - Coding Level of Care Code ED Insulation Nozzleman for Kamila Dubon
--- NOTE | 2021-09-09 18:41 | ECG_ITS ---
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 Measurements Intervals [place] Rate: 88 P: MD: QRS: 0 QRSD: 115 T: 72 QT: 380 QTc: 461 Interpretive Statements ATRIAL FIBRILLATION POSSIBLE ANTERIOR MYOCARDIAL INFARCTION , OF INDETERMINATE AGE [30 ms Q WAVE IN V3/V4, OR R < 0.2 mV IN V4] Compared to ECG 09/09/2021 14:59:39 No significant changes Electronically Signed On 09-09-2021 20:55:09 CDT by Harriet Ballesteros M.D. [id number]
--- NOTE | 2021-09-09 18:42 | XRR_ITS ---
PROCEDURE INFORMATION: Exam: XR Chest Exam date and time: 09/09/2021 7:11 PM Age: 66 years old Clinical indication: Chest wall pain; Prior surgery; Surgery date: 6+ months; Surgery type: Open heart; Additional info: Chest pain TECHNIQUE: Imaging protocol: XR of the chest. Views: 1 view. COMPARISON: CR XR chest 1V portable [id number] 08/28/2020 8:49 PM FINDINGS: Lungs: Unremarkable. No consolidation. Pleural spaces: Unremarkable. No pleural effusion. No pneumothorax. Heart/Mediastinum: Stable mild cardiomegaly. Bones/joints: Sternotomy changes. XR/XR chest 1V portable [id number] IMPRESSION: 1. No acute finding. 2. Stable cardiomegaly.
[2021-09-09 18:55] VITALS: BP 153/66; PULSE 81; RESP 18; O2SAT 96
--- NOTE | 2021-09-09 19:29 | ED_ITS ---
Documented by User: Jaqueline Lopez MD 09/09/21 22:59 HPI - General Adult General: Chief complaint: Headache Stated complaint: Thinks either a stoke or heart attack Time Seen by Provider: 09/09/21 18:40 History of Present Illness: Patient is a 66-year-old male with history of 2 prior brain bleed, CAD s/p stent x1/CABG, atrial fibrillation not on AC, HTN, HLD who presented to the emergency room for evaluation of 2 days of headache in the setting of generalized weakness and dyspnea. Patient tells me that for since his brain bleeds last year, he has had increased fatigue. 2 days ago, patient began experiencing right frontal headache with periorbital sensation. This is similar to his prior brain bleed and patient came to the emergency room for further evaluation of the headache. Patient also reports shortness of breath the last 2 days. Patient denies any chest pain, exertional lightheadedness/dyspnea, chest pain. Patient denies any pleuritic chest pain. Patient is not on any anticoagulation given prior history of brain bleed. Patient has no other focal complaints including focal neurological weakness, vision changes, slurring of speech, facial droop, language or word finding difficulty. Patient also denies any abdominal complaints, nausea/vomiting, diarrhea melena/hematochezia, history or complaints. Patient reports that this is not worst headache of life and sudden in onset. Did not reach maximal intensity over first 1-2 hours. Onset:2 days ago Duration:2 days Location:home Severity:moderate Associated symptoms: Reports dyspnea and headache(s); Deny chest pain, nausea, rash, palpitations or vomiting Review of Systems Const: Denies: fever(s) or chills Eyes: Denies: change in vision ENMT: Denies: mouth pain Card: Denies: chest pain or palpitations Resp: Reports: dyspnea; Denies: non-productive cough GI: Denies: abdominal pain, nausea, vomiting or diarrhea : Denies: dysuria Musc: Denies: extremity pain Skin/Breast: Denies: rash or new lesions Neuro: Reports: headache(s); Denies: weakness in extremities Psych: Reports: other (Normal mood) Henry/Lymph: Denies: easy bruising PFS ED PFSH: Medical History Atrial fibrillation BPH loc w urin obs/LUTS BPH with obstruction/lower urinary tract symptoms Cat scratch fever Chronic left hip pain Chronic low back pain CVA (cerebral vascular accident) Dyslipidemia (high LDL; low HDL) Encounter for long-term use of opiate analgesic Erectile dysfunction History of CVA (cerebrovascular accident) HTN (hypertension) with goal to be determined Intracerebral hemorrhage Left ureteral calculus Obesity Opioid contract exists S/P extracorporeal shock wave therapy Spinal stenosis, lumbar region with neurogenic claudication Urolithiasis Surgical History History of angioplasty S/P CABG x 3 S/P CABG x 3 Status post endovenous radiofrequency ablation of saphenous vein Stented coronary artery Family History Father , at age 68 Emphysema lung Mother , at age 49 Heart disease Other CAD (coronary artery disease) Hypertension Lung disease Social History Smoking and tobacco status: never smoked Second hand smoke exposure: No Alcohol intake: never Adopted: No Caregiver/support person: No Lives independently: No Household members: spouse Marital status: Current occupational status: retired History of recent travel: No Current gender identity: Male Physical Exam Const: COMMON NORMALS: alert HENMT: COMMON NORMALS: atraumatic HEAD & SCALP: atraumatic MOUTH: moist mucous membranes not abnormal Eye: COMMON NORMALS: EOMs intact bilaterally and conjunctivae normal CONJUNCTIVA: Yes conjunctivae normal Neck/C-Spine: COMMON NORMALS: full ROM and supple Resp: COMMON NORMALS: normal respiratory effort and clear to auscultation b ilaterally AUSCULTATION: clear to auscultation bilaterally Cardio: OTHER: +irregular irregular rhythm 2+ radial pulses GI: COMMON NORMALS: Soft to palpation and non-tender PALPATION: Yes Soft to palpation Extremity: COMMON NORMALS: full ROM OTHER: +mild LE swelling R Neuro: SENSORIUM/ORIENTATION: Yes alert MOTOR EXAM: No Abnormal motor strength present and Other motor observations present (no focal motor deficits) OTHER: Mental status? Awake, alert, and oriented to self, year, month, location, and situation.? Following simple axial and appendicular commands.? Has appropriate fund of knowledge, comprehension, and insight.? Able to recall and understands pertinent aspects of medical history and current treatment status.? ? Language? Speech is fluent without word-finding difficulties.? Intact naming, expression, healthcare receptionist, and repetition.? ? Cranial nerves? 2,3,4,6: PERRL, EOMI with no nystagmus. 5: Intact sensation to light touch, symmetric? 7: Smile symmetrical, no facial droop.? 8: Hearing grossly intact.? 9,10: Normal palate movement.? 11: Normal strength in trapezius bilaterally 12: Tongue protrudes midline.? ? Motor examination? Normal bulk & tone. Strength as follows (R/L): Delts (5/5), Biceps (5/5), Triceps (5/5), Wrist ext (5/5), hip flexors (5/5), plantarflexors (5/5), dorsiflexors (5/5). Sensation? Light Touch: Grossly intact and equal in upper and lower extremities bilaterally? Romberg: Negative.? Distal joint position sense intact ? Coordination? Akncbg-nd-ylum-finger movements intact without dysmetria or past-pointing.? Rapid fingertaps: preserved amplitude without decriment.? No tremor, myoclonus or truncal ataxia.? ? Gait/stance? Steady, normal narrow base gait with appropriate arm swing and turning.? Tandem gait without hesitation or loss of balance. Psych: COMMON NORMALS: speech normal SPEECH: Yes normal speech MOOD & AFFECT: Yes euthymic mood Course Vital Signs: Vital signs: Vital Signs Temperature 98 F 09/09/21 14:52 Pulse Rate 74 09/09/21 23:10 Respiratory Rate 17 09/09/21 23:10 Blood Pressure 141/71 09/09/21 23:10 Pulse Oximetry 97 09/09/21 23:10 [facility] - General Adult Medical Decision Making 86-year-old male with history of atrial fibrillation not anticoagulated, hypertension, hyperlipidemia, 2 prior brain bleeds presenting to the emergency room for evaluation of headache and shortness of breath x2 days. On physical exam, patient is neurologically intact. Hemodynamically stable. No nuchal rigidity. CT head is negative for any findings of brain bleed. Lab work-up today showed troponin x2 with delta level less than 5. EKG is nonischemic. Patient received a cocktail for headache including Benadryl, Reglan, IVF, magnesium sulfate with improvement in headache. Patient has no complaints of chest pain at any point during this visit. EKG showed atrial fibrillation with left bundle branch without meeting Sgarbossa criteria. Doubt ACS/PE or other emergent causes of chest pain. Patient did not have any active chest pain, lightheadedness and fatigue since prior brain bleed, I do not suspect this is ACS today. No suspicion for aortic dissection given no widened mediastinum, 2+ upper extremity pulses, or tearing pain. No suspicion for PE given no pleuritic chest pain, recent immobilization or surgery hemoptysis, or other VTE risk factors. EKG is non-ischemic. XR normal. I have given patient follow up with our telephonic case manager to be seen by our outpatient Dr. Wu for headache. Patient aware of a call from our telephonic case manager to schedule for appointment(s) and verbalizes understanding of the importance of following up. Rx: Magnesium oxide, Tylenol, Reglan as needed for headache Disposition: Discharge. Patient counseled regarding diagnostic impression, t reatment plan. Patient given ED strict return precautions to return for continuation, worsening, or development of new symptoms. Instructed to f/u w/ PCP regarding symptoms today. Patient verbalized understanding. Lab Data : 09/09/21 19:45 09/09/21 19:[address] 09/09/21 15:05 IMPRESSION: No acute intracranial abnormality. Chest X-Ray 09/09/21 18:42 IMPRESSION: 1. No acute finding. 2. Stable cardiomegaly. Laboratory Results WBC 8.5 10^3/uL (4.0-10.0) 09/09/21 19:45 RBC 4.94 10^6/uL (4.1-5.3) 09/09/21 19:45 Hgb 15.4 g/dL (11.7-16.6) 09/09/21 19:45 Hct 46.6 % (42.0-52.0) 09/09/21 19:45 MCV 94.3 fl (80-94) H 09/09/21 19:45 MCH 31.2 pg (28.0-34.0) 09/09/21 19:45 MCHC 33.0 g/dL (30.0-36.0) 09/09/21 19:45 RDW 13.5 % (12.1-15.1) 09/09/21 19:45 Plt Count 286 10^3/cmm (130-400) 09/09/21 19:45 MPV 9.6 fL (7.4-10.4) 09/09/21 19:45 Neut % (Auto) 65.9 % 09/09/21 19:45 Lymph % (Auto) 22.7 % 09/09/21 19:45 Hayes % (Auto) 8.7 % 09/09/21 19:45 Eos % (Auto) 1.6 % 09/09/21 19:45 Baso % (Auto) 0.7 % 09/09/21 19:45 Neut # (Auto) 5.63 10^3/uL (1.8-7.7) 09/09/21 19:45 Lymph # (Auto) 1.9 10^3/uL (0.8-4.8) 09/09/21 19:45 Hayes # (Auto) 0.7 10^3/uL (0.2-0.9) 09/09/21 19:45 Eos # (Auto) 0.1 10^3/uL (0.0-0.8) 09/09/21 19:45 Baso # (Auto) 0.1 10^3/uL (0.0-0.1) 09/09/21 19:45 Nucleated RBC % (auto) 0 % 09/09/21 19:45 Nucleated RBCs # 0.0 /100WBC 09/09/21 19:45 PT 14.10 SECONDS (12.1-14.9) 09/09/21 19:45 INR 1.06 (0.8-1.2) 09/09/21 19:45 APTT 25.8 SECONDS (23.9-36.7) 09/09/21 19:45 Sodium 137 mmol/L (136-145) 09/09/21 19:45 Potassium 3.8 mmol/L (3.5-5.1) 09/09/21 19:45 Chloride 101 mmol/L (98-107) 09/09/21 19:45 Carbon Dioxide 27 mmol/L (22-29) 09/09/21 19:45 Anion Gap 12.8 (5-19) 09/09/21 19:45 BUN 15 mg/dL (8-23) 09/09/21 19:45 Creatinine 0.5 mg/dL (0.7-1.2) L 09/09/21 19:45 GFR Calculation 166.4 mL/min (90-130) H 09/09/21 19:45 Glucose 118 mg/dL (65-115) H 09/09/21 19:45 Calculated Osmolality 286 mOsm/kg (285-295) 09/09/21 19:45 Calcium 9.3 mg/dL (8.5-10.5) 09/09/21 19:45 Total Bilirubin 0.4 mg/dL (0.15-1.2) 09/09/21 19:45 Direct Bilirubin 0.20 mg/dL (0.00-0.30) 09/09/21 19:45 AST 26 U/L (0-40) 09/09/21 19:45 ALT 45 U/L (0-41) H 09/09/21 19:45 Alkaline Phosphatase 103 IU/L (40-130) 09/09/21 19:45 Troponin T Baseline 18 ng/L (0-15) H 09/09/21 19:45 Troponin T 120 Minute 18.34 ng/L (0-15) H 09/09/21 22:10 Delta Troponin T 0.34 ABS# (0-10) 09/09/21 22:10 Total Protein 7.3 g/dL (6.6-8.7) 09/09/21 19:45 Albumin 4.0 g/dL (3.5-5.2) 09/09/21 19:45 Globulin 3.3 g/dL (1.3-4.6) 09/09/21 19:45 TSH 1.39 uIU/mL (0.27-4.20) 09/09/21 19:45 Urine Color Yellow (Yellow) 09/09/21 19:00 Urine Appearance Clear (CLEAR) 09/09/21 19:00 Urine pH 8 (5-7) H 09/09/21 19:00 Ur Specific [place] 1.010 (1.005-1.030) 09/09/21 19:00 Urine Protein Neg (Negative) 09/09/21 19:00 Urine Glucose (UA) Norm (Normal) 09/09/21 19:00 Urine Ketones Negative (Negative) 09/09/21 19:00 Urine Blood Neg (Negative) 09/09/21 19:00 Urine Nitrate Negative (Negative) 09/09/21 19:00 Urine Bilirubin Neg (Negative) 09/09/21 19:00 Prot Sulfosalicylic Acd Negative (Negative) 09/09/21 19:00 Urine Urobilinogen Norm mg/dL (Negative) 09/09/21 19:00 Ur Leukocyte Esterase Negative (Negative) 09/09/21 19:00 Imaging Data Other Imaging: Radiologist's impression: [facility] [address] [place] [address] XRay Report Signed Patient: En Worrell Unit #: [id number] : 1955 Age/Sex: 66 / M ADM Date: 09/09/21 Loc: ER Room/Bed: Attending Dr: Ordering Provider/Ordering MD: Maico Mckinley MD Date of Service: 09/09/21 Procedure(s): XR chest 1V portable [id number] Accession Number(s): [id number] Report Number: [id number] PROCEDURE INFORMATION: Exam: XR Chest Exam date and time: 09/09/2021 7:11 PM Age: 66 years old Clinical indication: Chest wall pain; Prior surgery; Surgery date: 6+ months; Surgery type: Open heart; Additional info: Chest pain TECHNIQUE: Imaging protocol: XR of the chest. Views: 1 view. COMPARISON: CR XR chest 1V portable [id number] 08/28/2020 8:49 PM FINDINGS: Lungs: Unremarkable. No consolidation. Pleural spaces: Unremarkable. No pleural effusion. No pneumothorax. Heart/Mediastinum: Stable mild cardiomegaly. Bones/joints: Sternotomy changes. XR/XR chest 1V portable [id number] IMPRESSION: 1. No acute finding. 2. Stable cardiomegaly.? ? Dictated By: Tyler Summers Signed By: Tyler Summers Signed Date/Time: 09/09/211926 DD/ [address] [facility] [address] [place] [address] CT Scan Report Signed Patient: En Worrell Unit #: [id number] : 1955 Age/Sex: 66 / M ADM Date: 09/09/21 Loc: ER Room/Bed: Attending Dr: Ordering Provider/Ordering MD: Jaqueline Lopez MD Date of Service: 09/09/21 Procedure(s): CT head wo con* [id number] Accession Number(s): [id number] Report Number: [id number] PROCEDURE INFORMATION: Exam: CT Head Without Contrast Exam date and time: 09/09/2021 4:24 PM Age: 66 years old Clinical indication: Headache; Patient HX: HX strokes pain around right eye. HX of brain bleed TECHNIQUE: Imaging protocol: Computed tomography of the head without contrast. Radiation optimization: All CT scans at this facility use at least one of these dose optimization techniques: automated exposure control; mA and/or kV adjustment per patient size (includes targeted exams where dose is matched to clinical indication); or iterative reconstruction. COMPARISON: CT head wo con* [id number] 02/13/2021 10:23 AM RADIATION DOSE METRICS: Total DLP (mGy-cm): 731.94 FINDINGS: Brain: The sulci are within normal limits. Moderate hypodensities in supratentorial periventricular and subcortical white matter, consistent with microangiopathy. No intracranial hemorrhage. Chronic lacunar infarct in the left thalamus. Cerebral ventricles: No ventriculomegaly. Paranasal sinuses: Visualized sinuses are unremarkable. No fluid levels. Mastoid air cells: Visualized mastoid air cells are well aerated. Vasculature: No hyperdense artery. Bones/joints: Unremarkable. No acute fracture. Soft tissues: Unremarkable. CT/CT head wo con* [id number] IMPRESSION: No acute intracranial abnormality. ? Dictated By: Tyler Summers Signed By: Tyler Summers Signed Date/Time: 09/09/21 1701 DD/ 1624 Discharge Plan Discharge Patient Disposition: Home Clinical Impression: Headache, Light headedness, Dyspnea Condition: Stable Prescriptions: New acetaminophen 500 mg tablet 500 mg PO Q6H PRN (Reason: pain) 5 Days Qty: 20 0RF Reglan 5 mg tablet 5 mg PO BID PRN (Reason: nausea and vomiting) 5 Days Qty: 10 0RF magnesium oxide 400 mg magnesium capsule 400 mg PO DAILY PRN (Reason: headache) 10 Days Qty: 10 0RF No Action (DME) glucometer testing kit: strips #100 refill:3 , lancets#100 refills:#100 Qty: 1 0RF Rx Instructions: glucometer testing kit: strips #100 refill:3 , lancets#100 refills:#100 meclizine 12.5 mg tablet 12.5 mg PO DAILY PRN (Reason: Dizziness Or Vertigo) 0RF nitroglycerin [Nitrostat] 0.4 mg tablet, sublingual 0.4 mg SUBLINGUAL Q5M PRN (Reason: Chest Pain) Qty: 25 3RF cholecalciferol (vitamin D3) 25 mcg (1,000 unit) capsule 25 mcg PO BEDTIME 0RF cinnamon bark [Cinnamon] 500 mg capsule 500 mg PO QAM 0RF pyridoxine (vitamin B6) 1 tab PO BEDTIME 0RF Digitek 250 mcg (0.25 mg) tablet 250 mcg PO DAILY@08 Qty: 90 3RF ezetimibe [Zetia] 10 mg tablet 10 mg PO DAILY@08 Qty: 90 3RF Lasix 20 mg tablet 20 mg PO DAILY PRN (Reason: swelling) Qty: 90 3RF hydrocodone-acetaminophen 10-325 mg tablet 1 tab PO TID PRN (Reason: pain) 30 Days Qty: 90 0RF Rx Instructions: fill on or after 07/25/21 hydrocodone-acetaminophen 10-325 mg tablet 1 tab PO TID PRN (Reason: pain) 30 Days Qty: 90 0RF Rx Instructions: fill on or after 08/24/21 potassium chloride 10 mEq tablet extended release 10 meq PO DAILY PRN (Reason: Hypokalemia) Qty: 90 3RF metoprolol tartrate 50 mg tablet 75 mg PO BID Qty: 270 3RF Rx Instructions: @08:00,20:00 Vitamin C 1,000 mg Tablet 1,000 mg PO BEDTIME 0RF Fish Oil 2 - 3 cap PO QAM 0RF Vitamin B-12 1 tab PO QAM 0RF folic acid 1 tab PO QAM 0RF promethazine 25 mg tablet 25 mg PO Q6H PRN (Reason: headache) Qty: 20 0RF Discharge Orders: Discharge ED (Routine); Ordered 09/09/21 Ordered By: Jaqueline Lopez Referrals: Villela,David, MD [Primary Care Provider] - Discharge Diet: Advance as tolerated Discharge Activity: Increase activity as tolerated Activity Restrictions/Additional Instructions: Please come back to the emergency room you have any fever chills, worsening headache, focal weakness, nausea/vomiting, inability to perform daily activity, or any new concerning complaints. Coding Level of Care Code ED Metal Control Worker for Reyg Fwd Exam Comprehensive
[2021-09-09 19:55] LABS: Basophils # 0.1 10^3/uL (0.0-0.1); Basophils % 0.7 %; Eosinophils # 0.1 10^3/uL (0.0-0.8); Eosinophils % 1.6 %; Hematocrit 46.6 % (42.0-52.0); Hemoglobin 15.4 g/dL (11.7-16.6); Lymphocytes # 1.9 10^3/uL (0.8-4.8); Lymphocytes % 22.7 %; Mean Corpuscular Hemoglobin 31.2 pg (28.0-34.0); Mean Corpuscular Volume 94.3 fl (80-94); Mean Platelet Volume 9.6 fL (7.4-10.4); Monocytes # 0.7 10^3/uL (0.2-0.9); Monocytes % 8.7 %; Neutrophils # 5.63 10^3/uL (1.8-7.7); Neutrophils % 65.9 %; Nucleated Red Blood Cells % 0 %; Platelet Count 286 10^3/cmm (130-400); Red Blood Count 4.94 10^6/uL (4.1-5.3); Red Cell Distribution Width 13.5 % (12.1-15.1); White Blood Count 8.5 10^3/uL (4.0-10.0)
[2021-09-09 19:57] LABS: Add Urine Microscopic? NO; Charge for UA Resulting for Rev
[2021-09-09] MEDS: acetaminophen 500 mg Tablet PO (20:05)
[2021-09-09] MEDS: diphenhydrAMINE 50 mg/mL SDV 1mL IVP (20:05)
[2021-09-09] MEDS: metoclopramide 5 mg/mL SDV 2 mL IVP (20:06)
[2021-09-09] MEDS: sodium chloride 0.9% 1,000 ML 999 ML IV (20:06)
[2021-09-09] MEDS: magnesium sulfate premix 2 GM/50 ML PIGGYBACK IV (20:07)
[2021-09-09 20:08] LABS: INR 1.06 (0.8-1.2)
[2021-09-09 20:08] LABS: Bilirubin Urine Neg (Negative); Blood Urine Neg (Negative); Glucose Urine UA Norm (Normal); Ketones Urine Negative (Negative); Leukocyte Esterase Urine Negative (Negative); Nitrate Urine Negative (Negative); Protein Urine Neg (Negative); Sulfosalicylic Acid Urine Negative (Negative); Urine Appearance Clear (CLEAR); Urine Color Yellow (Yellow); Urobilinogen Urine Norm (Negative); pH Urine 8 (5-7)
[2021-09-09 20:09] LABS: Partial Thromboplastin Time 25.8 SECONDS (23.9-36.7)
[2021-09-09 20:15] VITALS: BP 138/66; PULSE 89; RESP 16; O2SAT 97
[2021-09-09 20:21] LABS: Anion Gap 12.8 (5-19); Blood Urea Nitrogen 15 mg/dL (8-23); Calcium 9.3 mg/dL (8.5-10.5); Carbon Dioxide 27 mmol/L (22-29); Chloride 101 mmol/L (98-107); Glomerular Filtration Rate 166.4 mL/min (90-130); Glucose 118 mg/dL (65-115); Osmolality Calculated 286 mOsm/kg (285-295); Potassium 3.8 mmol/L (3.5-5.1); Sodium 137 mmol/L (136-145)
[2021-09-09 20:23] LABS: Troponin(5th) Baseline 18 ng/L (0-15)
[2021-09-09 20:32] LABS: Alanine Aminotransferase 45 U/L (0-41); Alkaline Phosphatase 103 IU/L (40-130); Aspartate Amino Transferase 26 U/L (0-40); Globulin 3.3 g/dL (1.3-4.6); Thyroid Stimulating Hormone 1.39 uIU/mL (0.27-4.20); Total Bilirubin 0.4 mg/dL (0.15-1.2); Total Protein 7.3 g/dL (6.6-8.7)
[2021-09-09 22:43] LABS: Troponin 5 2HR 18.34 ng/L (0-15)
[2021-09-09 22:49] LABS: Troponin 5 2HR Delta 0.34 ABS# (0-10)
[2021-09-09 23:10] VITALS: BP 141/71; PULSE 74; RESP 17; O2SAT 97
--- NOTE | 2021-09-11 08:53 | DCPLANNER ---
Addendum entered by Eunice Ellison 11/28/21 09:51: Patient had a follow up appointment with neurology - patient did attend appointment. Addendum entered by Eunice Ellison 10/13/21 06:25: human relations manager was told from clinic that a follow up appointment was scheduled for 10.11.21 @ 12:30 pm. with Charli and patient stated that he didn't think he needed the appt. So clinic cancelled it. Addendum entered by Eunice Ellison 10/04/21 12:07: Patient has a follow up appointment scheduled for Thursday, October 11, 2021 at 12:30 with Charli at neurology. Clinic will call patient with appointment information. Original Note: human relations manager had message to schedule a follow up appointment scheduled for patient with neurology. human relations manager sent patients information to the front office staff at neurology. Patients information will be printed and reviewed. Clinic will call patient with appointment information.
== END 2021-09-09 23:34 | disposition home or self-care (01) ==
PROVIDERS: Emergency Medicine; Emergency Provider Emergency Medicine; PCP Family Medicine Adult Medicine
DX: R51.9 Headache, unspecified (principal); R42 Dizziness and giddiness; R06.00 Dyspnea, unspecified; I48.91 Unspecified atrial fibrillation; I44.7 Left bundle-branch block, unspecified; I10 Essential (primary) hypertension; Z86.79 Personal history of other diseases of the circulatory system; Z95.1 Presence of aortocoronary bypass graft; Z95.5 Presence of coronary angioplasty implant and graft; Z86.73 Personal history of transient ischemic attack (TIA), and cerebral infarction without residual deficits
CPT/HCPCS: 70450; 71045; 80048; 80076; 81003; 84443; 84484; 85025; 85610; 85730; 93005; 96365; 96375; 99285; J1200; J2765; J3475; J7030

== ENCOUNTER 2021-10-21 14:25 | Outpatient (CLI) | payer MEDICARE, SELFPAY ==
--- NOTE | 2021-10-21 14:15 | USCV_ITS ---
En Worrell Age: 66 Gender: M : 1955 Exam Date: 10/21/2021 15:20 Ordering Phys: Abdullahi Vickers M.D ([email or web address]) Technologist: PRIYA Exam Location: [facility] [place] Indication: Shortness of breath BP: 114 / 71 HR: 78 Rhythm: Sinus Technical Quality: Suboptimal MEASUREMENTS (Male / Female) Normal Values 2D ECHO LV Diastolic Diameter PLAX 3.4 cm 4.2 - 5.9 / 3.9 - 5.3 cm LV Systolic Diameter PLAX 2.5 cm IVS Diastolic Thickness 1.5 cm 0.6 - 1.0 / 0.6 - 0.9 cm IVS Systolic Thickness 2.1 cm LVPW Diastolic Thickness 1.6 cm 0.6 - 1.0 / 0.6 - 0.9 cm LVPW Systolic Thickness 2.1 cm LVOT Diameter 2.0 cm LV Ejection Fraction 2D Teich 51.3 % LV Ejection Fraction MOD 2C 60.3 % LV Ejection Fraction 2C AL 61.5 % LA Diameter 3.1 cm LA Width 4.2 cm LA Height 5.6 cm RA Width 3.0 cm RA Height 5.4 cm Aorta at Sinotubular Diameter 2.7 cm M-MODE Aortic Annulus Diameter 3.5 cm LA Ao Ratio MM 1.1 MV E Point Septal Separation 0.8 cm DOPPLER AV Peak Velocity 141.0 cm/s LVOT Peak Velocity 92.0 cm/s AV Area Cont Eq vti 2.8 cm squared AV Area Cont Eq pk 2.1 cm squared MV Area PHT 5.0 cm squared MV E' Velocity 117.0 cm/s TR Peak Velocity 415.0 cm/s TR Peak Gradient 68.9 mmHg PV Peak Velocity 95.0 cm/s RV Acceleration Time 0.1 s RV Ejection Time 0.3 s RV AcT/ET 0.2 FINDINGS Left Ventricle Technically limited echocardiogram because of poor ultrasonic windows. LV systolic function is grossly normal. Regional wall motion abnormalities cannot be assessed because of poor ultrasonic windows Right Ventricle Not well-visualized Right Atrium Not well-visualized Left Atrium Left atrium is dilated Mitral Valve Grossly normal. Trace mitral regurgitation Aortic Valve Aortic valve is thickened. Mild aortic regurgitation Tricuspid Valve Tricuspid valve is not well visualized. Trace tricuspid regurgitation Pulmonic Valve Not visualized. Trace pulmonic regurgitation. Pericardium Grossly normal Aorta Grossly normal IVC CONCLUSIONS Technically limited quality echocardiogram because of poor ultrasonic windows. LV systolic function is grossly normal. Valvular structures are not well visualized. Trace mitral regurgitation Aortic valve is thickened. Mild aortic regurgitation. Tricuspid valve is not well visualized. Trace tricuspid regurgitation Trace pulmonic regurgitation. Comparison with prior echocardiogram not possible because of poor ultrasonic windows Abdullahi Vickers MD (Electronically Signed) Final Date: 30 October 2021 18:38 S
== END 2021-10-21 14:26 | disposition home or self-care (01) ==
PROVIDERS: PCP Family Medicine Adult Medicine; Visit Provider Internal Medicine
DX: I08.3 Combined rheumatic disorders of mitral, aortic and tricuspid valves (principal); R06.02 Shortness of breath
CPT/HCPCS: 93306

== ENCOUNTER → 2021-10-24 08:32 | Outpatient (BNVA) | payer MEDICARE, SELFPAY | PROVIDERS: PCP Family Medicine Adult Medicine; Visit Provider Internal Medicine Pulmonary Disease | DX: G47.33 Obstructive sleep apnea (adult) (pediatric) (principal); R06.02 Shortness of breath; I10 Essential (primary) hypertension; E78.5 Hyperlipidemia, unspecified; Z95.1 Presence of aortocoronary bypass graft; M25.552 Pain in left hip; G89.29 Other chronic pain; E66.9 Obesity, unspecified; Z79.891 Long term (current) use of opiate analgesic | CPT/HCPCS: 99204 ==

== ENCOUNTER → 2022-02-04 13:05 | Outpatient (BNVA) | payer MEDICARE, SELFPAY | PROVIDERS: PCP Family Medicine Adult Medicine; Visit Provider Internal Medicine | DX: I10 Essential (primary) hypertension (principal); I48.19 Other persistent atrial fibrillation; Z86.73 Personal history of transient ischemic attack (TIA), and cerebral infarction without residual deficits; Z95.1 Presence of aortocoronary bypass graft | CPT/HCPCS: 99214 ==

== ENCOUNTER 2022-06-26 16:12 | Outpatient (CLI) | payer MEDICARE, SELFPAY ==
--- NOTE | 2022-06-26 16:35 | XR_ITS ---
WS: [id number] XR hip BI 2V wo/w pel [id number] REASON FOR EXAM: back and hip pain FINDINGS: RIGHT HIP: No fracture or focal bone lesion. Mild narrowing of the joint space. Mild to moderate subchondral sclerosis and osteophytosis of the acetabulum with mild spurring of the femoral head. No soft tissue abnormality. LEFT HIP: No fracture or focal bone lesion. Mild narrowing of the joint space. Mild to moderate subchondral sclerosis and osteophytosis of the acetabulum with mild spurring of the femoral head. No soft tissue abnormality. XR/XR hip BI 2V wo/w pel [id number] IMPRESSION: Moderate osteoarthritis of both hips.
--- NOTE | 2022-06-26 16:35 | XR_ITS ---
WS: [id number] XR lumbar spine 2-3V* [id number] REASON FOR EXAM: Hip and back pain FINDINGS: Rotatory scoliosis convex left. Straightening of the lumbar lordosis. No significant vertebral body abnormality. Mild to moderate narrowing of the disc spaces L1-S1. No spondylolysis. No significant spondylolisthesis. Moderate degenerative change in the facet joints L1-S1. XR/XR lumbar spine 2-3V* [id number] IMPRESSION: Degenerative spondylosis as above.
== END 2022-06-26 16:13 | disposition home or self-care (01) ==
PROVIDERS: PCP Family Medicine Adult Medicine; Visit Provider Family Medicine Adult Medicine
DX: M47.817 Spondylosis without myelopathy or radiculopathy, lumbosacral region (principal); M48.062 Spinal stenosis, lumbar region with neurogenic claudication; M54.10 Radiculopathy, site unspecified; M16.0 Bilateral primary osteoarthritis of hip
CPT/HCPCS: 72100; 73521

== ENCOUNTER → 2022-08-05 13:57 | Outpatient (BNVA) | payer MEDICARE, SELFPAY | PROVIDERS: PCP Family Medicine Adult Medicine; Visit Provider Internal Medicine | DX: I10 Essential (primary) hypertension (principal); I48.19 Other persistent atrial fibrillation; I61.9 Nontraumatic intracerebral hemorrhage, unspecified; Z95.1 Presence of aortocoronary bypass graft; R07.9 Chest pain, unspecified | CPT/HCPCS: 99214 ==

== ENCOUNTER 2022-08-19 06:01 | Outpatient (CLI) | payer MEDICARE, SELFPAY ==
[2022-08-19] VITALS (11 sets, daily range): BP systolic 119–161; BP diastolic 70–98; PULSE 65–95; RESP 7–90; TEMP 37.1; O2SAT 91–99; BMI 44.9
--- NOTE | 2022-08-19 06:00 | XACV_ITS ---
Exam Room: 2 Ht: 157 cm Wt: 112 kg BSA: 2.28 m2 Gender: Male : 1955 Any Known Allergies: Other Exam Priority: Routine Procedure(s): Procedure Description: Diagnostic procedure Procedure Description: Left Heart Catheterization Procedure Description: Venous Graft Catheterization Procedure Description: BASURTO Graft Catheterization Procedure Description: Coronary Angiography Diagnostic Cath Status: Elective Diagnostic Findings * Left Main has no significant disease. * Right Coronary Artery has diffuse luminal irregularities. * Proximal Left circumflex artery has 70% stenosis. Mid Circumflex: obstructive 70% stenosis, LEAH: 3 flow. OM 1 has a severe proximal stenosis. OM 2 is occluded. * Bypass grafts: SVG to Diagonal artery is patent. SVG to OM is patent. BASURTO to LAD is patent. * Mid Left Anterior Descending: total occlusion, LEAH: 0 flow. * Coronary angiography shows right dominance. Conclusions 1. Severe rosebud coronary artery disease. 2. Bypass grafts are patent. 3. Patient has prior CABG. 4. Normal left ventricular systolic function. Ejection fraction of 50%. Recommendations * Aggressive risk factor modification. * Outpatient cardiology follow up in 2-4 weeks. Interventional RX Recommendation: medical therapy and/or counseling Diagnostic RX Recommendation: medical therapy and/or counseling Ventriculography Ejection Fraction: 50.0 % Pressures Phase:Rest AO : 115 / 73 ( 85 ) @ 8:50:00 AM 116 / 82 ( 93 ) @ 8:54:00 AM 110 / 67 ( 85 ) @ 9:09:00 AM 110 / 64 ( 84 ) @ 9:09:00 AM LV : 131 / 0 / 8 @ 9:08:00 AM 112 / 3 / 6 @ 9:09:00 AM 114 / 3 / 12 @ 9:09:00 AM Valves Phase:DefaultPhase AV : 0.0 @ 8:21:25 AM 0.0 @ 8:21:25 AM AV Mean Gradient: 0.0 @ 8:21:25 AM 0.0 @ 8:21:25 AM Clinical Evaluation EBL: 5mL-10mL Procedural Details Procedure Consent Obtained. Admit Source: Out Patient. Pre-Procedure Time Out. Identified patient by full name and date of as verbalized by the patient/guarantor. Does the consent match the physician's order: Yes. Accurate & Complete Informed Consent: Yes. Inpatient/Outpatient History & Physical on Chart: Yes. If H&P is completed, is and addenduem needed: Yes; If yes, is the addendum complete: No. Visualize and Verify Site with Patient/Guarantor: N/A. Relevant Radiology Images available: N/A. The risks, benefits, and alternatives of sedation and/or procedure were discussed by physician. The patient agrees to continue. Anesthesiologist Arrived to provide sedation for patient during procedure. See anesthesia flowsheet. Procedure started. [facility] Clinical Fraility Score: 4: Vulnerable. Tooth Polisher Indications: Worsening Angina. Chest Pain Symptom Assessment: Typical Angina Symptoms. Correct patient, site and procedure confirmed by cath team. Current diagnosis: Chest Pain. PERRLA. Strong, equal hand personnel monitor bilaterally. Lungs clear x 5 lobes. IV Site on Arrival: 20 gauge in the right anticubital. IV Fluids: 0.9% NaCl at 75ml/hr. 0 mL infused prior to medical laboratory technologist. Pre Procedural Pulses: bilateral radial was 2+. Pre Procedural Pulses: bilateral posterior tibial was 3+. Pre Procedural Pulses: bilateral dorsalis pedis was 3+. bilateral groins was prepped with chloroprep then draped in the usual sterile fashion. Physician notified. Baseline sample Acquired. HR: 86 BPM. Physician arrived. Physician scrubbed in. Immediate Pre-Procedure Time Out. Correct Patient: Yes; Correct Procedure: Yes; Correct Site: Yes; Correct Patient Position: Yes; Correct Supplies: Yes; Dried Flammable Prep: Yes ; Blood Products Available: N/A;. Lidocaine 1% infiltrated to the right groin. Arterial access obtained with micropuncture set. A 5 colombian JL4 catheter in over wire. Multiple views taken of left coronary artery. Catheter removed over the standard wire. A 5 colombian JR4 catheter in over wire. Multiple views taken of right coronary artery. Catheter redirected to subclavian. BASURTO to LAD visualized. Catheter removed over the standard wire. A 5 colombian AL1 catheter in over wire. SVG's to Diaganol visualized and patent. SVG's to OM visualized and patent. Catheter removed over the standard wire. A 5 colombian Angled Pig catheter in over wire. EDP Sample taken: LV 131/-1,8; HR: 62 BPM; SpO2: 92%. LV gram performed in HERNANDEZ @ 10 mL/second for a total of 30 mL. EDP Sample taken: LV 112/3,6; HR: 92 BPM; SpO2: 93%. Pullback taken: LV 114/3,12; AO 110/67(85); Mean: 0mmHg, Peak to Peak: 0mmHg, SEP: 3sec/min; HR: 89 BPM; SpO2: 93%. Catheter removed over the standard wire. A Right femoral angiogram was performed to determine safe placement of closure device. A Angio-Seal VIP ([facility] [facility]) was successful obtaining hemostatsis at the Right Femoral artery insertion site. LOT # [id number] EXP 02-24-2023. Post Procedure: Pulses reassessed and unchanged. PERRLA. Strong, equal hand personnel monitor bilaterally. No VTE prophylaxis required. Medication's Wasted: Heparin = 1000 unit. Medication's Wasted: Other = Versed 2 mg. Medication's Wasted: Lidocaine 1% = 1 mL. Total IV fluids: 48 mL. Post-op diagnosis: Patent bypass grafts, Severe multivessel rosebud CAD. Complications: None. Estimated blood loss: 5mL-10mL. Responsiveness - Normal response to verbal stimuli; alert and oriented, PERRLA. Airway - Unaffected, no intervention required; spontaneous ventilation. Circulation: W/N/L, pulses unchanged. Nausea/Vomiting: No. Procedure completed. Patient transferred by bed to CPRU. Vital chart was stopped. Access Site Site: Right Femoral artery Sheath Size: 6 Fr Hemostasis Method: Angio-Seal VIP ([facility]) Hemostasis Success: Successful Procedure Medications Start: 7:34 AM Stop: 7:34 AM Medication: Fentanyl Amount: 50 mcg Route: I.V. Start: 8:15 AM Stop: 8:15 AM Medication: Fentanyl Amount: 25 mcg Route: I.V. Start: 8:16 AM Stop: 8:16 AM Medication: Fentanyl Amount: 25 mcg Route: I.V. I, the attending physician, have reviewed and verified all procedure medications. Yes, all medications given per verbal order History/Risk Factors Hypertension: Yes Dyslipidemia: Yes Peripheral Arterial Disease (PAD): No Myocardial Infarction (PA): No Obesity: Yes Renal Disease: No Tobacco Use: Never Prior Interventions PCI: Yes CABG: Yes Valve Surgery: No Date of PCI: 12/22/2013 Report Signatures Finalized by Abdullahi Vickers MD on 08/24/2022 02:22 PM
[2022-08-19] MEDS: diphenhydrAMINE 50 mg Capsule PO (06:30)
[2022-08-19 06:37] LABS: Basophils % 0.1 %; Hematocrit 48.9 % (42.0-52.0); Lymphocytes # 0.8 10^3/uL (0.8-4.8); Lymphocytes % 9.2 %; Mean Corpuscular HGB Conc 32.7 g/dL (30.0-36.0); Mean Corpuscular Hemoglobin 30.7 pg (28.0-34.0); Mean Corpuscular Volume 93.7 fl (80-94); Mean Platelet Volume 9.3 fL (7.4-10.4); Monocytes # 0.2 10^3/uL (0.2-0.9); Monocytes % 1.7 %; Neutrophils # 7.85 10^3/uL (1.8-7.7); Neutrophils % 88.7 %; Nucleated Red Blood Cells % 0 %; Platelet Count 317 10^3/cmm (130-400); Red Blood Count 5.22 10^6/uL (4.1-5.3); Red Cell Distribution Width 13.4 % (12.1-15.1); White Blood Count 8.9 10^3/uL (4.0-10.0)
[2022-08-19 06:43] LABS: Glucose Point of Care 144 mg/dL (70-110)
[2022-08-19 06:53] LABS: Anion Gap 14.5 (5-19); Blood Urea Nitrogen 22 mg/dL (8-23); Calcium 9.4 mg/dL (8.5-10.5); Carbon Dioxide 25 mmol/L (22-29); Chloride 101 mmol/L (98-107); Glomerular Filtration Rate 165.9 mL/min (90-130); Glucose 151 mg/dL (65-115); Osmolality Calculated 288 mOsm/kg (285-295); Potassium 4.5 mmol/L (3.5-5.1); Sodium 136 mmol/L (136-145)
--- NOTE | 2022-08-19 07:10 | ANES.PREANE2 ---
Pre-Anesthetic Assessment Height/Weight: Height 1.57 m Preop Diagnosis: CAD Operation Date: 08/19/22 07:00 Proposed Procedures p [facility] 99455,I20.0(Left) - Abdullahi Vickers M.D Familial anesthetic complications: none Was Beta Bety taken within 24 hours: Yes Was Clonidine taken within 24 hours: N/A Last Intake: 23:00 Social No alcohol and No tobacco Exam alert, oriented x 3, clear to auscultation bilaterally and regular rate & rhythm some recall issues after CVA Airway Submandibular: within normal limits Cervical ROM: within normal limits Mallampati: Class II Dentition: full Pulmonary Exertional Dyspnea, Sleep Apnea (No CPAP sleeps upright) and Shortness of Breath CV/HEM Atrial Fibrillation, Coronary Artery Disease (CABG 2014), Congestive Heart Failure, Deep Vein Thrombosis, Hypertension and Myocardial Infarction None reported Hepatic None reported GI Gastroesophageal Reflux Disease Metabolic Diabetes Mellitus and Morbid Obesity Musc/skel Lower Back Pain Neuropsych Cerebrovascular Accident (bleed 2020 and 2021, memory and speech delay) Anesthetic Plan ASA status: 4 Anesthesia: Anesthesia Evaluation and MAC Risk of > 500 ml blood loss (7ml/kg in children): No Medications/Allergies Home Medications Medication Instructions Recorded Confirmed Last Taken Type glucometer testing kit: strips #1 ea 07/20/19 06/26/22 Unknown Rx #100 refill:3 , lancets#100 refills:#100 meclizine 12.5 mg tablet 12.5 mg PO DAILY PRN Dizziness Or 09/14/20 08/05/22 02/12/21 History Vertigo pyridoxine (vitamin B6) 1 tab PO BEDTIME 12/12/20 08/05/22 Unknown History cholecalciferol (vitamin D3) 25 25 mcg PO BEDTIME 02/12/21 08/05/22 02/12/21 History mcg (1,000 unit) capsule hydrocodone 10 mg-acetaminophen 1 tab PO TID PRN pain 30 days #90 07/18/21 08/05/22 Unknown Rx 325 mg tablet tabs metoprolol tartrate 50 mg tablet 75 mg PO BID #270 tabs 09/17/21 08/05/22 Unknown Rx ASV Bipap adjustment #1 ea 09/20/21 06/26/22 Unknown Rx furosemide 20 mg tablet 20 mg PO BID swelling 10/24/21 08/05/22 Unknown History ondansetron 4 mg disintegrating 4 mg PO Q8H PRN nausea and vomiting 10/24/21 08/05/22 Unknown History tablet digoxin 250 mcg (0.25 mg) tablet 250 mcg PO DAILY@08 #30 tabs 04/25/22 08/05/22 Unknown Rx (Digitek) nitroglycerin 0.4 mg sublingual 0.4 mg sublingual Q5M PRN Chest 06/12/22 08/05/22 Unknown Rx tablet (Nitrostat) Pain #25 tabs isosorbide mononitrate 30 mg 30 mg PO DAILY #90 tabs 06/13/22 06/26/22 Unknown Rx tablet,extended release 24 hr potassium chloride 10 mEq 10 meq PO DAILY PRN Hypokalemia 06/13/22 08/05/22 Unknown Rx tablet,extended release #90 tabs ezetimibe 10 mg tablet (Zetia) 10 mg PO DAILY@08 #90 tabs 06/26/22 08/05/22 Unknown Rx Cinnamon PO 08/05/22 08/05/22 Unknown History Fish Oil PO 08/05/22 08/05/22 Unknown History Folic Acid PO 08/05/22 08/05/22 Unknown History Vitamin B-12 PO 08/05/22 Unknown History diphenhydramine HCl 25 mg tablet 50 mg PO ONCE allergy symptoms #2 08/15/22 Unknown Rx (Allergy (diphenhydramine)) tabs prednisone 50 mg tablet 50 mg PO DAILY #3 tabs 08/15/22 Unknown Rx Allergies Allergy/AdvReac Type Severity Reaction Status Date / Time shellfish derived Allergy Mild ADR-Vomitin Verified 08/05/22 14:10 g erythromycin base Allergy Unknown Verified 08/05/22 14:10 garlic Allergy Unknown Verified 08/05/22 14:10 Iodinated Contrast Media Allergy SWELLING Verified 08/05/22 14:10 isosorbide [From Imdur] Allergy Unknonw Verified 08/05/22 14:10 lisinopril Allergy Unknown Verified 08/05/22 14:10 simvastatin Allergy Unknown Verified 08/05/22 14:10 Current Medications Generic Name Dose Route Start Last Admin Trade Name Freq PRN Reason Stop Dose Admin Sodium Chloride 1,000 mls @ 50 mls/hr 08/19/22 06:00 08/19/22 07:05 Sodium Chloride 0.9% IV 08/20/22 01:59 Not Given .Q20H ONE PFSH Anesthesia Medical History Atrial fibrillation Back pain with left-sided radiculopathy BPH loc w urin obs/LUTS BPH with obstruction/lower urinary tract symptoms Cat scratch fever CVA (cerebral vascular accident) Decubitus skin ulcer Dyslipidemia (high LDL; low HDL) Encounter for long-term use of opiate analgesic [facility], Dr. Abel Erectile dysfunction History of CVA (cerebrovascular accident) HTN (hypertension) with goal to be determined Intracerebral hemorrhage Left ureteral calculus Lumbar and sacral osteoarthritis Obesity Obstructive sleep apnea Opioid contract exists [facility] S/P extracorporeal shock wave therapy Spinal stenosis, lumbar region with neurogenic claudication chronic LBP & Left Hip pain Urolithiasis Surgical History History of angioplasty S/P CABG x 3 S/P CABG x 3 Status post endovenous radiofrequency ablation of saphenous vein Stented coronary artery Family History Father , at age 68 Emphysema lung Mother , at age 49 Heart disease Other CAD (coronary artery disease) Hypertension Lung disease Social History Smoking and tobacco status: never smoked Second hand smoke exposure: No Alcohol intake: never Substance/Drug Use: never Adopted: No Caregiver/support person: No Lives independently: No Household members: spouse Marital status: Current occupational status: retired Current gender identity: Male Data Anesthesia 08/19/22 06:28 08/19/22 06:28 Short CBC 08/19/22 Range/Units 06:28 WBC 8.9 (4.0-10.0) 10^3/uL Hgb 16.0 (11.7-16.6) g/dL Hct 48.9 (42.0-52.0) % MCV 93.7 (80-94) fl Plt Count 317 (130-400) 10^3/cmm Neut % (Auto) 88.7 % Neut # (Auto) 7.85 H (1.8-7.7) 10^3/uL BMP 08/19/22 06:28 Sodium 136 Potassium 4.5 Chloride 101 Carbon Dioxide 25 BUN 22 Creatinine 0.5 L Glucose 151 H Calcium 9.4 Cardiac Studies: Echocardiogram 10/21/21
--- NOTE | 2022-08-19 07:38 | W.PM.OPSUD ---
Surgery/Procedure H&P Update DATE OF PROCEDURE: August 19, 2022 DATE H&P PERFORMED: 08/05/22 H&P UPDATE INFORMATION: I have reviewed H&P completed within last 30 days, I have examined patient prior to procedure and Changes to prior documentation as noted here CHANGES TO PREVIOUS DOCUMENTATION: Patient and his mentioned that he was taken off of all antiplatelt/anticoagulation secondary to hemorrhagic bleed. In his prior meter readers supervisor notes, only anticoagulation was stopped. PREOP DIAGNOSIS: Worsening agina PRIMARY INDICATION FOR PROCEDURE: Worsening agina PLANNED PROCEDURE: Operation Date: 08/19/22 07:00 Proposed Procedures p [facility] 17867,I20.0(Left) - Abdullahi Vickers M.D Possible percutaneous coronary intervention PATIENT REASSESSED PRIOR TO SEDATION, WITH NO CHANGE NOTED: Yes PHYSICAL EXAM: alert, oriented x 3, clear to auscultation bilaterally and regular rate & rhythm AIRWAY EVAL/ANESTHESIA PLAN: normal airway, ASA IV, Local Anesthesia, Risks, benefits & alternatives of sedation and/or procedure discussed and Patient agrees to continue as planned ADDITIONAL INFORMATION: Moderate sedation
--- NOTE | 2022-08-19 08:35 | PC.NURSE ---
From [facility] Received pt from component lab tech via bed. Pt had a diagnostic heart cath, no intervention. Right groin was accessed, was closed w/angioseal. Right groin area assessment: no hematoma, bleeding or swelling noted, pedal pulses are +3, palpated. Pt reports of chronic back pain and is on scheduled pain med at home. Correspondence Section Supervisor notified on pain med. VS and neurovascular monitored. call light provided to pt. educated pt on activity restrictions, to notify nurse for any feeling of wetness, unusual burning or pain on the right groin area. Pt verbalizes understanding.
[2022-08-19] MEDS: HYDROcodone-acetaminophen 5-325 mg Tablet 1 TAB PO (10:15)
--- NOTE | 2022-08-19 14:45 | PC.NURSE ---
6590 Pt started reporting of bright lights around his vision. He stated bright lights are greater than on right eye. he denies any headache but reported of dizziness when he got up to the bathroom. Pt stated, i just don't feel right. Police Shift Commander Dr Vickers notified. and immediately came to the room.
--- NOTE | 2022-08-19 15:19 | PM.MISC ---
Miscellaneous Note Purpose of Documentation: Brief note Note: I was called by nursing staff that patient has complained of vision disturbance, dizziness and headache. I came to evaluate patient immediately. By that time his symptoms had resolved. His symptoms lasted 10-15 minutes. Main symptom was bright light in both eyes. On exam no focal neurological abnormalities. He can walk with no dizziness. I spoke with insulation board calender operator neurologist, Dr Wu who said symptoms are consistent with migraine headache. As there are no neruological symptoms now, patient will be discharged with ER warning symptoms discussed. Patient and in agreement with plan.
== END 2022-08-19 16:28 | disposition home or self-care (01) ==
LOC: CCL 06:06 → CSU 08:42
PROVIDERS: PCP Family Medicine Adult Medicine; Visit Provider Internal Medicine
DX: I20.0 Unstable angina (principal); R06.00 Dyspnea, unspecified; R06.02 Shortness of breath; I48.91 Unspecified atrial fibrillation; Z95.1 Presence of aortocoronary bypass graft; I50.9 Heart failure, unspecified; I11.0 Hypertensive heart disease with heart failure; I25.2 Old myocardial infarction; Z86.718 Personal history of other venous thrombosis and embolism; K21.9 Gastro-esophageal reflux disease without esophagitis; E11.9 Type 2 diabetes mellitus without complications; E66.01 Morbid (severe) obesity due to excess calories; Z68.42 Body mass index [BMI] 45.0-49.9, adult; I69.128 Other speech and language deficits following nontraumatic intracerebral hemorrhage; I69.911 Memory deficit following unspecified cerebrovascular disease; Z79.891 Long term (current) use of opiate analgesic; Z79.52 Long term (current) use of systemic steroids; G47.33 Obstructive sleep apnea (adult) (pediatric); R51.9 Headache, unspecified
CPT/HCPCS: 36415; 36416; 80048; 82962; 85025; 93459; 96365; C1760; C1769; C1887; C1894; G0269; J1644; J2250; J2704; J3010; J7030; Q0163; Q9967

== ENCOUNTER → 2022-09-03 11:00 | Outpatient (BNVA) | payer MEDICARE, SELFPAY | PROVIDERS: PCP Family Medicine Adult Medicine; Visit Provider Nurse Practitioner Family | DX: I48.19 Other persistent atrial fibrillation (principal); Z95.1 Presence of aortocoronary bypass graft; G47.33 Obstructive sleep apnea (adult) (pediatric); R06.02 Shortness of breath | CPT/HCPCS: 36415; 80048; 99214 ==

== ENCOUNTER 2022-09-25 10:43 | Emergency (ER) | payer MEDICARE, SELFPAY ==
[2022-09-25] VITALS (8 sets, daily range): BP systolic 142–175; BP diastolic 73–105; PULSE 64–81; RESP 16–18; TEMP 36.4; O2SAT 93–98
--- NOTE | 2022-09-25 11:09 | ECG_ITS ---
[facility] Test Date: 2022-09-25 Pat Name: En Worrell Department: Room: Gender: Male Shoe Cutter: : 1955 Requested By: Bernardo Mena Order Number: [id number] Bob MD: Abdullahi Vickers M.D. Measurements Intervals Thornton Rate: 64 P: 0 IN: 0 QRS: -15 QRSD: 109 T: 82 QT: 408 QTc: 423 Interpretive Statements ATRIAL FIBRILLATION MODERATE INTRAVENTRICULAR CONDUCTION DELAY [105+ ms QRS DURATION, 80+ ms Q/S IN V1/V2, NO Q AND 60+ ms R IN I/aVL/V5/V6] MINIMAL VOLTAGE CRITERIA FOR LVH, CONSIDER NORMAL VARIANT [MEETS CRITERIA IN ONE OF: R(aVL), S(V1), R(V5), R(V5/V6)+S(V1)] NONSPECIFIC ST & T-WAVE ABNORMALITY Compared to ECG 09/09/2021 18:55:59 Intraventricular conduction delay now present T-wave abnormality now present Myocardial infarct finding no longer present Electronically Signed On 09-25-2022 17:36:46 CDT by Abdullahi Vickers M.D. [id number]
--- NOTE | 2022-09-25 11:10 | CT_ITS ---
WS: [id number] CT HEAD NONCONTRAST HISTORY: Symptoms of acute stroke TECHNIQUE: Contiguous axial imaging performed through the brain in 2.5 mm imaging. Bone and soft tiss ue windows. Sagittal and coronal reformats reviewed. All CT scans at [facility] use at least one of these dose optimization techniques: automated exposure control; mA and/or kV adjustment per pa tient size (includes targeted exams where dose is matched to clinical indication); or iterative recon struction. DLP: 1207.67 mGy-cm. COMPARISON: 09/09/2021 No acute intracranial hemorrhage, midline shift or mass effect. Moderate atrophy with moderate to severe small vessel ischemic type changes throughout the RIGHT elkin er. Small lacunar infarct RIGHT sigala radiata and thalami. Prior infarct posterior LEFT parietal lob e, paramedian. This infarct has progressed since the prior study and may be subacute. Ventricles: Normal size with no hydrocephalus. Paranasal sinuses: As visualized are clear. Mastoid air cells: Well pneumatized. Calvarium and scalp: Skull is intact with no soft tissue edema or swelling. Hyperostosis frontalis in terna. CT/CT head thrombolytic 50275 IMPRESSION: 1. No acute intracranial hemorrhage or edema. 2. Mild atrophy with moderate small vessel ischemic disease and small lacunar infarcts. 3. Interval mild progression of the remote posterior LEFT parietal lobe infarc t since 09/09/2021.
--- NOTE | 2022-09-25 11:11 | ED_ITS ---
HPI - Neuro Symptoms/Deficit General: Chief Complaint: Neuro Symptoms/Deficit Stated Complaint: stroke like symptoms Time Seen by Provider: 09/25/22 10:57 Source: patient and family Mode of arrival: ambulatory History of Present Illness: This patient was brought to the emergency department today because over the last approximately 3 days there have been some issues with increased word finding difficulty. There is been some alleged right-sided numbness and tingling. provides much of the history but the patient will interject at times. He has a history of having a hemorrhagic CVA in 2020. He also has a history of coronary artery disease. also elaborates that he has several other issues that are ongoing and subject to work-up by pulmonology cardiology etc. He denies any chest pain currently. Apparently his is concerned because he has episodes where he gets seemingly short of breath that has not worsened recently. He has not had any fevers or chills and he denies headache. states he falls all the time because of his impaired balance which has been present for at least 2 or more years Timing confirmed by: spouse Location: speech Context: gradual onset On Anticoagulants: No Associated symptoms: Deny chest pain, headache(s), nausea, syncope or vomiting Review of Systems Const: Denies: fever(s) or chills Eyes: Denies: change in vision or blurry vision ENMT: Reports: throat pain; Denies: odynophagia, nasal discharge or nasal congestion Card: Denies: chest pain, palpitations, irregular heart rhythm, syncope or pre-syncope GI: Reports: diarrhea; Denies: abdominal pain, nausea or vomiting : Denies: flank pain, difficulty urinating, dysuria or urinary frequency Musc: Denies: neck pain, back pain, extremity pain or extremity swelling Skin/Breast: Reports: rash (He has chronic lower extremity discoloration and rash and easy bleeding) Neuro: Reports: numbness in extremities, sensory changes and difficulty communicating thoughts; Denies: headache(s), weakness in extremities or seizure-like activity Psych: Denies: anxiety or depression Henry/Lymph: Reports: easy bruising [facility] ED PFSH: Medical History Atrial fibrillation Back pain with left-sided radiculopathy BPH with obstruction/lower urinary tract symptoms CVA (cerebral vascular accident) Decubitus skin ulcer Dyslipidemia (high LDL; low HDL) Encounter for long-term use of opiate analgesic [facility], Dr. Abel Erectile dysfunction History of CVA (cerebrovascular accident) HTN (hypertension) with goal to be determined Lumbar and sacral osteoarthritis Obesity Obstructive sleep apnea Opioid contract exists [facility] S/P extracorporeal shock wave therapy Spinal stenosis, lumbar region with neurogenic claudication chronic LBP & Left Hip pain Urolithiasis Surgical History History of angioplasty S/P CABG x 3 S/P CABG x 3 Status post endovenous radiofrequency ablation of saphenous vein Stented coronary artery Family History Father , at age 68 Emphysema lung Mother , at age 49 Heart disease Other CAD (coronary artery disease) Hypertension Lung disease Social History Smoking and tobacco status: never smoked Second hand smoke exposure: No Alcohol intake: never Substance/Drug Use: never Adopted: No Caregiver/support person: No Lives independently: No Household members: spouse Marital status: Current occupational status: retired Current gender identity: Male NIH stroke score NIHSS: Level Of Consciousness - 1a: 0 Level Of Consciousness Questions - 1b: Both Correct Level Of Consciousness Commands - 1c: Both Correct Best Gaze - 2: Normal Visual Daniel - 3: No Visual Loss Facial Palsy - 4: Normal Motor Arm Right - 5: No Drift Motor Arm Left - 5: No Drift Motor Leg Right - 6: No Drift Motor Leg Left - 6: No Drift Limb Ataxia - 7: Absent Sensory - 8: Normal Best Language - 9: Mild/Moderate Aphasia Dysarthia - 10: Normal Extinction And Inattention - 11: 0 Score: Total Score: 1 Physical Exam Narrative: EXAM NARRATIVE: The patient answers questions appropriately and during my time with the patient does not appear to have any word finding difficulty. He appears somewhat frustrated but in no acute distress. Const: COMMON NORMALS: patient oriented x3 and alert GENERAL APPEARANCE: cooperative NUTRITIONAL APPEARANCE: overweight HENMT: COMMON NORMALS: normocephalic, atraumatic, Normal nasal mucous membranes and turbinates present, moist oral mucous membranes and oropharynx normal HEAD & SCALP: normocephalic and atraumatic NOSE: Normal nasal mucous membranes and turbinates present Eye: COMMON NORMALS: Equal, round and reactive pupils present, EOMs intact bilaterally and conjunctivae normal CONJUNCTIVA: Yes conjunctivae normal PUPIL: Yes Equal, round and reactive pupils present Neck/C-Spine: COMMON NORMALS: full ROM, no JVD and No carotid bruits Chest: COMMONS NORMALS: normal inspection of the chest Resp: COMMON NORMALS: normal respiratory effort, No use of accessory muscles and clear to auscultation bilaterally AUSCULTATION: clear to auscultation bilaterally Cardio: COMMON NORMALS: no JVD, regular rate, regular rhythm, No murmurs present (Cardio) and Peripheral pulses 2+ throughout RATE: regular rate RHYTHM: regular rhythm PERIPHERAL PULSES: Peripheral pulses 2+ throughout GI: COMMON NORMALS: Normal to inspection, nondistended, normoactive bowel sounds present, non-tender and no masses INSPECTION: Yes central obesity : COMMON NORMALS: Yes no CVA tenderness BLADDER/KIDNEY EXAM: Yes no CVA tenderness Back/Pelvis: COMMON NORMALS: no CVA tenderness, thoracic and lumbar spine normal to inspection, no thoracic nor lumbar tenderness and thoraco-lumbar ROM normal Extremity: COMMON NORMALS: full ROM, capillary refill normal, no calf tenderness and no pedal edema Neuro: COMMON NORMALS: patient oriented x3, moves all extremities, no focal motor deficits and no sensory deficits noted SENSORIUM/ORIENTATION: Yes alert Psych: COMMON NORMALS: mental status grossly normal Skin: NARRATIVE SKIN EXAM: He has hyperpigmented hypertrophied dermis to both lower extremities with some superficial venous engorgement and local tenderness. No lymphangitis or lymphadenopathy or evidence of erythema proximally. Course Reevaluation(s): Reevaluation #1: Discussed findings thus far. Also discussed possible Watchman procedure and then realized that he had had that procedure at this facility by Dr. Ronal keenan somewhere in the 2014 2016 timeframe. We also discussed possibility of an MRI as recommended by your neurology. Has had some history of claustrophobia and will try with anxiolytic. Also the patient has had 2 prior hemorrhagic infarcts 1 in the left parietal and 1 in the right cerebellar both on anticoagulants. I am reluctant to give the patient any antiplatelet agents given this fact and also the fact that he has spontaneous bleeding from his lower extremity venous insufficiency areas. Time: 12:23 Reevaluation #2: Patient remained stable. He was reevaluated and found to be very fluent in speech and very interactive at this time. He had no ongoing symptoms of chest pain shortness of breath etc. Reviewed his current findings their implications with both patient and spouse in great detail. We have also arranged a follow-up appoint with Dr. Martinez in neurology for 29 September this coming week. Discussed continued observation versus discharge and the collective decision was that the latter was preferable. He should continue his usual regimen. Again he is not eligible for any antiplatelets agents, DOACs etc. and given his history of recurrent intracranial bleeding. He has had a Watchman procedure in the past which does give him some benefit of stroke risk reduction. Serial troponins remain flat and likely slightly elevated chronically due to his chronic atrial fibrillation and pul monary congestion. I suspect that the vague shortness of breath symptoms that his related are probably due to when he gets to a point where he exceeds his cardiac reserve given his coronary artery disease and chronic atrial fibrillation. Chest x-ray does not show any infiltrative process etc. Time: 15:17 Consultations: Consultation #1: Laverne with on-call neurologist Dr. Martinez regarding his current presentation and recommendations for additional studies. We discussed antiplatelet use. Given his A-fib and his prior history of hemorrhagic stroke he also may be a candidate that might need to be referred for a Watchman procedure for his right atrial appendage. We also discussed additional imaging at this time to include an MRI. Vital Signs: Vital signs: Vital Signs Temperature 97.6 F 09/25/22 11:08 Pulse Rate 76 09/25/22 13:45 Respiratory Rate 18 09/25/22 13:45 Blood Pressure 145/73 09/25/22 13:45 Pulse Oximetry 97 09/25/22 13:45 Oxygen Delivery Me thod Room Air 09/25/22 11:08 MDM - Neuro Symptoms/Deficit Medical Decision Making This patient presented with some vague mild neurologic symptoms at began approximately 3 days ago. His initial NIH is 1 at worst case scenario. Given his level of deficits and most importantly his alleged time of onset he is in no way a candidate for consideration for thrombolytic therapy. Work-up ensued. Patient had a CT scan which did not show any acute intracranial hemorrhage mass effect etc. Question whether he had some chronic lacunar infarcts and whether or not there was any change in his parietal region as well. Neurology was consulted who made arrangements for a outpatient follow-up as long as he remained stable in the emergency department. An attempt was made to obtain a MRI to help further delineate his neuro anatomy however he could not tolerate the MRI even with anxiolytics. The outpatient open MRI will need to be arranged. Further observation and reevaluation reveals him to be improving and without any ongoing focal deficits. Initial troponin was slightly elevated but a repeat troponin was essentially unchanged making ACS ongoing ischemia etc. unlikely. Likely chronically elevated due to his chronic atrial fibrillation and mild vascular congestion. His BNP is not significantly elevated or worrisome at this time to suggest significant pulmonary congestion. All findings were reviewed in detail with the patient and spouse. Given his current clinical picture really no benefit to prolonged observation or hospitalization at this time. Outpatient neurology is arranged for this coming Thursday, he has pulmonology follow-up arranged as well as well as cardiology follow-up arranged. There is really no therapeutic intervention that can be performed at this time to lower his stroke risk given his hemorrhage risk. He has had the Watchman procedure which does give him some benefit. Stable at this time to be discharged with outpatient follow-up and return precautions. Medical Records I reviewed the patient's medical records. Lab Data I reviewed the patient's lab results. 09/25/22 11:32 09/25/22 11:[address] 09/25/22 11:10 IMPRESSION: 1. No acute intracranial hemorrhage or edema. 2. Mild atrophy with moderate small vessel ischemic disease and small lacunar infarcts. 3. Interval mild progression of the remote posterior LEFT parietal lobe infarct since 09/09/2021. Chest X-Ray 09/25/22 13:56 IMPRESSION: 1. Mild cardiac enlargement unchanged. No acute process noted. Laboratory Results WBC 7.9 10^3/uL (4.0-10.0) 09/25/22 11:32 RBC 4.81 10^6/uL (4.1-5.3) 09/25/22 11:32 Hgb 14.8 g/dL (11.7-16.6) 09/25/22 11:32 Hct 44.8 % (42.0-52.0) 09/25/22 11:32 MCV 93.1 fl (80-94) 09/25/22 11:32 MCH 30.8 pg (28.0-34.0) 09/25/22 11:32 MCHC 33.0 g/dL (30.0-36.0) 09/25/22 11:32 RDW 13.6 % (12.1-15.1) 09/25/22 11:32 Plt Count 271 10^3/cmm (130-400) 09/25/22 11:32 MPV 9.1 fL (7.4-10.4) 09/25/22 11:32 Neut % (Auto) 63.3 % 09/25/22 11:32 Lymph % (Auto) 24.4 % 09/25/22 11:32 [place] % (Auto) 9.2 % 09/25/22 11:32 Eos % (Auto) 2.2 % 09/25/22 11:32 Baso % (Auto) 0.6 % 09/25/22 11:32 Neut # (Auto) 4.98 10^3/uL (1.8-7.7) 09/25/22 11:32 Lymph # (Auto) 1.9 10^3/uL (0.8-4.8) 09/25/22 11:32 [place] # (Auto) 0.7 10^3/uL (0.2-0.9) 09/25/22 11:32 Eos # (Auto) 0.2 10^3/uL (0.0-0.8) 09/25/22 11:32 Baso # (Auto) 0.1 10^3/uL (0.0-0.1) 09/25/22 11:32 Nucleated RBC % (auto) 0 % 09/25/22 11:32 Nucleated RBCs # 0.0 /100WBC 09/25/22 11:32 PT 13.30 SECONDS (12.1-14.9) 09/25/22 11:32 INR 0.99 (0.8-1.2) 09/25/22 11:32 APTT 26.5 SECONDS (23.9-36.7) 09/25/22 11:32 Sodium 138 mmol/L (136-145) 09/25/22 11:32 Potassium 3.9 mmol/L (3.5-5.1) 09/25/22 11:32 Chloride 104 mmol/L (98-107) 09/25/22 11:32 Carbon Dioxide 26 mmol/L (22-29) 09/25/22 11:32 Anion Gap 11.9 (5-19) 09/25/22 11:32 BUN 15 mg/dL (8-23) 09/25/22 11:32 Creatinine 0.5 mg/dL (0.7-1.2) L 09/25/22 11:32 GFR Calculation 165.9 mL/min (90-130) H 09/25/22 11:32 Glucose 114 mg/dL (65-115) 09/25/22 11:32 POC Glucose 106 mg/dL (70-110) 09/25/22 11:18 Calculated Osmolality 288 mOsm/kg (285-295) 09/25/22 11:32 Calcium 8.9 mg/dL (8.5-10.5) 09/25/22 11:32 Total Bilirubin 0.3 mg/dL (0.15-1.2) 09/25/22 11:32 AST 31 U/L (0-40) 09/25/22 11:32 ALT 44 U/L (0-41) H 09/25/22 11:32 Alkaline Phosphatase 93 U/L (40-130) 09/25/22 11:32 Troponin T Baseline 22 ng/L (0-15) H 09/25/22 11:32 Troponin T 120 Minute 21.80 ng/L (0-15) H 09/25/22 13:41 Delta Troponin T -0.20 ABS# (0-10) L 09/25/22 13:41 NT-Pro-B Natriuret Pep 400 pg/mL (0-125) H 09/25/22 11:32 Total Protein 6.9 g/dL (6.6-8.7) 09/25/22 11:32 Albumin 3.9 g/dL (3.5-5.2) 09/25/22 11:32 Globulin 3.0 g/dL (1.3-4.6) 09/25/22 11:32 Urine Color Light yellow (Yellow) 09/25/22 12:30 Urine Appearance Clear (CLEAR) 09/25/22 12:30 Urine pH 6 (5-7) 09/25/22 12:30 Ur Specific [place] 1.015 (1.005-1.030) 09/25/22 12:30 Urine Protein Neg (Negative) 09/25/22 12:30 Urine Glucose (UA) Norm (Normal) 09/25/22 12:30 Urine Ketones Negative (Negative) 09/25/22 12:30 Urine Blood Neg (Negative) 09/25/22 12:30 Urine Nitrate Negative (Negative) 09/25/22 12:30 Urine Bilirubin Neg (Negative) 09/25/22 12:30 Urine Urobilinogen Norm mg/dL (Negative) 09/25/22 12:30 Ur Leukocyte Esterase Negative (Negative) 09/25/22 12:30 EKG Data EKG 1: I personally reviewed and interpreted this EKG as follows: Interpretation: Patient's resting EKG reveals a ventricular rate of 64 bpm. No P waves are i dentified that are contiguous with the QRSs suggestive of atrial fibrillation. He has normal QT interval. Normal R wave axis. No acute ST-T wave changes noted. Current electrocardiogram is consistent with prior tracings within the system. EKG 2: Interpretation: Contemporaneous review of second EKG this visit reveals a ventricular rate of 79 bpm underlying rhythm consistent with atrial fibrillation. QRS duration is normal. Corrected QT intervals normal. Some nonspecific ST-T wave changes noted in the lateral precordial leads. Discharge Plan Discharge Patient Disposition: Home Clinical Impression: Atrial fibrillation, Multiple lacunar infarcts, Coronary artery disease Condition: Stable Prescriptions: No Action (DME) glucometer testing kit: strips #100 refill:3 , lancets#100 refills:#100 Qty: 1 0RF Rx Instructions: glucometer testing kit: strips #100 refill:3 , lancets#100 refills:#100 meclizine 12.5 mg tablet 12.5 mg PO DAILY PRN (Reason: Dizziness Or Vertigo) cholecalciferol (vitamin D3) 25 mcg (1,000 unit) capsule 25 mcg PO BEDTIME hydrocodone-acetaminophen 10-325 mg tablet 1 tab PO QID PRN (Reason: Pain) acetaminophen 500 mg tablet 500 mg PO QPM isosorbide mononitrate 60 mg tablet extended release 24 hr 60 mg PO BID Qty: 180 3RF (DME) ASV Bipap adjustment See Rx Instructions .Route .MEDSUPPLY Qty: 1 0RF Rx Instructions: Back up rate 8-4 nitroglycerin [Nitrostat] 0.4 mg tablet, sublingual 0.4 mg SUBLINGUAL Q5M PRN (Reason: Chest Pain) Qty: 25 4RF metoprolol tartrate 50 mg tablet 75 mg PO BID Qty: 270 3RF Rx Instructions: @08:00,20:00 ondansetron 4 mg tablet,disintegrating 4 mg PO Q8H PRN (Reason: nausea and vomiting) Qty: 7 0RF ezetimibe [Zetia] 10 mg tablet 10 mg PO DAILY@08 Qty: 90 3RF Digitek 250 mcg (0.25 mg) tablet 250 mcg PO DAILY@08 Qty: 90 3RF Vitamin C 250 mg Tablet 250 mg PO DAILY folic acid 1 mg Tablet 1 mg PO DAILY Vitamin B-6 100 mg Tablet 50 mg PO DAILY vitamin [id number] acid 0.5-1 mg Tablet 1 tab PO DAILY Cinnamon 500 mg Capsule 500 mg PO DAILY Fish Oil 300-1,000 mg Capsule 1 cap PO DAILY potassium chloride 10 mEq tablet extended release 10 meq PO DAILY furosemide 20 mg tablet 20 mg PO DAILY Discharge Orders: Discharge ED (Routine); Ordered 09/25/22 Ordered By: Bernardo Mena Referrals: Jose Guadalupe Martinez MD [Physician] - 09/29/22 3:00 pm (ED follow-up) David Villela MD [Primary Care Provider] - Discharge Diet: Usual diet Discharge Activity: Increase activity as tolerated Patient Instructions: Opioid Safety, Pain Management Activity Restrictions/Additional Instructions: As we discussed you have chronic atrial fibrillation which can cause small little clots that may lodge in very small vessels in your brain that may or cause transient symptoms and may cause continuous symptoms. You are not eligible to take any blood thinning medications due to your history of recurrent intracranial hemorrhages. Had a procedure previously to help control your clotting. You are to continue usual activity and medications. We have arranged an appointment to see the neurologist on 29 September at 3 PM in their office here in [place]. If you develop any new symptoms such as weakness persistent d ifficulty with speech or other concerns or you are welcome to return to the emergency department at any time. Coding Level of Care Code ED Emergency Telecommunications Dispatcher for Kamila Dubon
[2022-09-25 11:21] LABS: Glucose Point of Care 106 mg/dL (70-110)
[2022-09-25 11:41] LABS: Basophils # 0.1 10^3/uL (0.0-0.1); Basophils % 0.6 %; Eosinophils # 0.2 10^3/uL (0.0-0.8); Eosinophils % 2.2 %; Hematocrit 44.8 % (42.0-52.0); Hemoglobin 14.8 g/dL (11.7-16.6); Lymphocytes # 1.9 10^3/uL (0.8-4.8); Lymphocytes % 24.4 %; Mean Corpuscular Hemoglobin 30.8 pg (28.0-34.0); Mean Corpuscular Volume 93.1 fl (80-94); Mean Platelet Volume 9.1 fL (7.4-10.4); Monocytes # 0.7 10^3/uL (0.2-0.9); Monocytes % 9.2 %; Neutrophils # 4.98 10^3/uL (1.8-7.7); Neutrophils % 63.3 %; Nucleated Red Blood Cells % 0 %; Platelet Count 271 10^3/cmm (130-400); Red Blood Count 4.81 10^6/uL (4.1-5.3); Red Cell Distribution Width 13.6 % (12.1-15.1); White Blood Count 7.9 10^3/uL (4.0-10.0)
[2022-09-25 11:54] LABS: INR 0.99 (0.8-1.2)
[2022-09-25 11:55] LABS: Partial Thromboplastin Time 26.5 SECONDS (23.9-36.7)
[2022-09-25 12:04] LABS: Troponin(5th) Baseline 22 ng/L (0-15)
[2022-09-25 12:13] LABS: Alanine Aminotransferase 44 U/L (0-41); Albumin Level 3.9 g/dL (3.5-5.2); Alkaline Phosphatase 93 U/L (40-130); Anion Gap 11.9 (5-19); Aspartate Amino Transferase 31 U/L (0-40); Blood Urea Nitrogen 15 mg/dL (8-23); Calcium 8.9 mg/dL (8.5-10.5); Carbon Dioxide 26 mmol/L (22-29); Chloride 104 mmol/L (98-107); Glomerular Filtration Rate 165.9 mL/min (90-130); Glucose 114 mg/dL (65-115); NT Pro B Type Natriuretic Pept 400 pg/mL (0-125); Osmolality Calculated 288 mOsm/kg (285-295); Potassium 3.9 mmol/L (3.5-5.1); Sodium 138 mmol/L (136-145); Total Bilirubin 0.3 mg/dL (0.15-1.2); Total Protein 6.9 g/dL (6.6-8.7)
[2022-09-25 12:40] LABS: Add Urine Microscopic? NO; Charge for UA Resulting for Rev
--- NOTE | 2022-09-25 12:41 | PC.NURSE ---
PT STATES HE WEIGHS 254 POUNDS.
[2022-09-25 12:43] LABS: Bilirubin Urine Neg (Negative); Blood Urine Neg (Negative); Glucose Urine UA Norm (Normal); Ketones Urine Negative (Negative); Leukocyte Esterase Urine Negative (Negative); Nitrate Urine Negative (Negative); Protein Urine Neg (Negative); Specific Gravity, Urine 1.015 (1.005-1.030); Urine Appearance Clear (CLEAR); Urine Color Light yellow (Yellow); Urobilinogen Urine Norm (Negative); pH Urine 6 (5-7)
[2022-09-25] MEDS: LORazepam 1 mg Tablet PO (12:53)
--- NOTE | 2022-09-25 13:10 | ECG_ITS ---
[facility] Test Date: 2022-09-25 Pat Name: En Worrell Department: Room: Gender: Male Annual Giving Manager: : 1955 Requested By: Bernardo Mena Order Number: [id number] Bob MD: Abdullahi Vickers M.D. Measurements Intervals [place] Rate: 79 P: 0 DC: 0 QRS: -17 QRSD: 122 T: 118 QT: 392 QTc: 452 Interpretive Statements ATRIAL FIBRILLATION MODERATE INTRAVENTRICULAR CONDUCTION DELAY [105+ ms QRS DURATION, 80+ ms Q/S IN V1/V2, NO Q AND 60+ ms R IN I/aVL/V5/V6] ST DEVIATION AND MODERATE T-WAVE ABNORMALITY, CONSIDER LATERAL ISCHEMIA [-0.1+ mV T-WAVE IN I/aVL/V5/V6] Compared to ECG 09/25/2022 11:11:31 Possible ischemia now present T-wave abnormality still present Electronically Signed On 09-25-2022 17:37:35 CDT by Abdullahi Vickers M.D. [email or web address]
--- NOTE | 2022-09-25 13:56 | XR_ITS ---
WS: [id number] Exam: XR chest 1V portable [id number] Date/Time of Exam: 09/25/2022 1:58 PM Reason For Exam: sob Comparison 09/09/2021. The lungs are fully inflated and clear. Minimal cardiac enlargement unchanged. Signs of previous CABG surgery. No pleural effusions. Regional bony elements are intact. Monitoring leads superimpose the c hest. XR/XR chest 1V portable [id number] IMPRESSION: 1. Mild cardiac enlargement unchanged. No acute process noted.
--- NOTE | 2022-09-25 14:20 | PC.NURSE ---
PT PLACED ON CONTINUOUS NIBP, SPO2, AND CM
== END 2022-09-25 15:29 | disposition home or self-care (01) ==
PROVIDERS: Emergency Provider Emergency Medicine; PCP Family Medicine Adult Medicine
DX: I48.91 Unspecified atrial fibrillation (principal); I25.10 Atherosclerotic heart disease of native coronary artery without angina pectoris; I63.81 Other cerebral infarction due to occlusion or stenosis of small artery; Z95.1 Presence of aortocoronary bypass graft; Z86.73 Personal history of transient ischemic attack (TIA), and cerebral infarction without residual deficits; E78.5 Hyperlipidemia, unspecified; I10 Essential (primary) hypertension
CPT/HCPCS: 36416; 70450; 71045; 80053; 81003; 82962; 83880; 84484; 85025; 85610; 85730; 93005; 99285

== ENCOUNTER → 2022-09-29 15:05 | Outpatient (BNVA) | payer MEDICARE, SELFPAY | PROVIDERS: PCP Family Medicine Adult Medicine; Visit Provider Psychiatry & Neurology Neurology | DX: I69.320 Aphasia following cerebral infarction (principal); I69.398 Other sequelae of cerebral infarction; R20.0 Anesthesia of skin; Z98.890 Other specified postprocedural states; I25.10 Atherosclerotic heart disease of native coronary artery without angina pectoris; Z95.5 Presence of coronary angioplasty implant and graft; Z95.1 Presence of aortocoronary bypass graft; G47.33 Obstructive sleep apnea (adult) (pediatric); I48.91 Unspecified atrial fibrillation; I87.8 Other specified disorders of veins; E11.9 Type 2 diabetes mellitus without complications | CPT/HCPCS: 99203 ==

== ENCOUNTER → 2022-11-14 11:39 | Outpatient (BNVA) | payer MEDICARE, SELFPAY | PROVIDERS: PCP Family Medicine Adult Medicine; Visit Provider Internal Medicine Pulmonary Disease | DX: G47.33 Obstructive sleep apnea (adult) (pediatric) (principal); R06.02 Shortness of breath | CPT/HCPCS: 36415; 82785; 85025; 85651; 86003; 86140; 86160; 86162; 86200; 86235; 86255; 86376; 99214 ==

== ENCOUNTER → 2022-11-21 11:15 | Outpatient (BNVA) | payer MEDICARE, SELFPAY | PROVIDERS: PCP Family Medicine Adult Medicine; Visit Provider Internal Medicine | DX: I10 Essential (primary) hypertension (principal); I48.91 Unspecified atrial fibrillation; Z95.1 Presence of aortocoronary bypass graft; R07.9 Chest pain, unspecified; Z86.73 Personal history of transient ischemic attack (TIA), and cerebral infarction without residual deficits | CPT/HCPCS: 99214 ==

== ENCOUNTER 2022-12-03 07:10 | Outpatient (CLI) | payer MEDICARE, SELFPAY ==
--- NOTE | 2022-12-03 07:30 | CTR_ITS ---
PROCEDURE INFORMATION: Exam: CT Chest Without Contrast; Diagnostic Exam date and time: 12/03/2022 7:35 AM Age: 67 years old Clinical indication: Condition or disease; Lung condition and disease; Other: Interstitial lung disease; Prior surgery; Surgery date: 6+ months; Surgery type: Open heart; Additional info: CT chest (hrct) to rule out interstitial lung disease, CT chest (hrct) to CT chest (hrct) to rule out interstitial TECHNIQUE: Imaging protocol: Diagnostic computed tomography of the chest without contrast. Radiation optimization: All CT scans at this facility use at least one of these dose optimization techniques: automated exposure control; mA and/or kV adjustment per patient size (includes targeted exams where dose is matched to clinical indication); or iterative reconstruction. REPORTING DATA: Count of CT and Cardiac NM exams in prior 12 months: This patient has received [address] and 0 known cardiac nuclear medicine studies in the 12 months prior to the current study. COMPARISON: CR XR chest 1V portable [id number] 09/25/2022 2:01 PM RADIATION DOSE METRICS: Total DLP (mGy-cm): 2116.13 FINDINGS: Lungs: Lingular lobe subsegmental atelectasis. Pleural spaces: Unremarkable. No pneumothorax. No pleural effusion. Heart: Cardiomegaly. Coronary arteries: Coronary artery atherosclerotic calcifications. Lymph nodes: Scattered subcentimeter short axis nonspecific mediastinal lymph nodes. Vasculature: Unremarkable. No aortic aneurysm. Kidneys and ureters: Left kidney punctate nonobstructing calyceal stone. Stomach and bowel: Constipation. Bones/joints: Sternotomy wires. Multilevel bridging degenerative osteophytes throughout the thoracic spine. Soft tissues: Unremarkable. CT/CT chest wo con [id number] IMPRESSION: 1. Negative for interstitial lung disease as clinically questioned. 2. Cardiomegaly. 3. Sternotomy wires. 4. Coronary artery atherosclerotic calcifications. 5. Constipation. 6. Scattered subcentimeter short axis nonspecific mediastinal lymph nodes. 7. Left kidney punctate nonobstructing calyceal stone. 8. Lingular lobe subsegmental atelectasis. 9. Multilevel bridging degenerative osteophytes throughout the thoracic spine.
[2022-12-03 07:55] VITALS: BP 120/75
[2022-12-03 08:11] VITALS: PULSE 73; RESP 20; O2SAT 97
[2022-12-03] MEDS: albuterol 2.5 mg/3 mL Neb INHALATION (08:11)
[2022-12-03 08:16] VITALS: PULSE 76
== END 2022-12-03 07:11 | disposition home or self-care (01) ==
PROVIDERS: PCP Family Medicine Adult Medicine; Visit Provider Internal Medicine Pulmonary Disease
DX: R06.02 Shortness of breath (principal); R94.2 Abnormal results of pulmonary function studies; J98.11 Atelectasis; I51.7 Cardiomegaly; Z98.890 Other specified postprocedural states; I25.10 Atherosclerotic heart disease of native coronary artery without angina pectoris; K59.00 Constipation, unspecified; N20.0 Calculus of kidney; M25.78 Osteophyte, vertebrae
CPT/HCPCS: 71250; 94060; 94618; 94726; 94729; J7613

== ENCOUNTER → 2023-03-23 15:08 | Outpatient (BNVA) | payer MEDICARE, SELFPAY | PROVIDERS: PCP Family Medicine Adult Medicine; Visit Provider Internal Medicine Pulmonary Disease | DX: E66.2 Morbid (severe) obesity with alveolar hypoventilation (principal); Z95.1 Presence of aortocoronary bypass graft; M25.552 Pain in left hip; G89.29 Other chronic pain; Z68.41 Body mass index [BMI] 40.0-44.9, adult; Z79.891 Long term (current) use of opiate analgesic; J82.83 Eosinophilic asthma; M25.642 Stiffness of left hand, not elsewhere classified; M25.641 Stiffness of right hand, not elsewhere classified | CPT/HCPCS: 99214 ==

== ENCOUNTER → 2023-08-11 14:16 | Outpatient (BNVA) | payer MEDICARE, SELFPAY | PROVIDERS: PCP Family Medicine Adult Medicine; Visit Provider Internal Medicine Pulmonary Disease | DX: G47.33 Obstructive sleep apnea (adult) (pediatric) (principal); R06.02 Shortness of breath; Z95.1 Presence of aortocoronary bypass graft; M25.552 Pain in left hip; G89.29 Other chronic pain; E66.01 Morbid (severe) obesity due to excess calories; Z68.41 Body mass index [BMI] 40.0-44.9, adult; Z79.891 Long term (current) use of opiate analgesic; R29.898 Other symptoms and signs involving the musculoskeletal system | CPT/HCPCS: 99214 ==

== ENCOUNTER → 2023-08-25 10:55 | Outpatient (BNVA) | payer MEDICARE, SELFPAY | PROVIDERS: PCP Family Medicine Adult Medicine; Visit Provider Podiatrist Foot & Ankle Surgery | DX: L60.3 Nail dystrophy (principal); I73.9 Peripheral vascular disease, unspecified | CPT/HCPCS: 11720; 99203 ==

== ENCOUNTER → 2023-12-08 10:32 | Outpatient (BNVA) | payer MEDICARE, SELFPAY | PROVIDERS: PCP Family Medicine Adult Medicine; Visit Provider Family Medicine Adult Medicine | DX: I10 Essential (primary) hypertension (principal); E11.9 Type 2 diabetes mellitus without complications; I48.91 Unspecified atrial fibrillation; E78.5 Hyperlipidemia, unspecified | CPT/HCPCS: 80061; 83036; 84443; 85025 ==

== ENCOUNTER 2024-03-10 15:12 | Emergency (ER) | payer MEDICARE, SELFPAY ==
--- NOTE | 2024-03-10 15:16 | ECG_ITS ---
[facility] Test Date: 2024-03-10 Pat Name: En Worrell Department: Room: Gender: Male All Around Patternmaker: : 1955 Requested By: Bernabe Anderson Order Number: [id number] Bob MD: Ayde Vasquez M.D. Measurements Intervals [place] Rate: 88 P: 0 SD: 0 QRS: -24 QRSD: 99 T: 77 QT: 351 QTc: 425 Interpretive Statements ATRIAL FIBRILLATION POSSIBLE ANTERIOR MYOCARDIAL INFARCTION , PROBABLY OLD [30 ms Q WAVE IN V3/V4, OR R < 0.2 mV IN V4] ABNORMAL RHYTHM ECG Compared to ECG 09/25/2022 13:58:44 Myocardial infarct finding now present Intraventricular conduction delay no longer present T-wave abnormality no longer present Possible ischemia no longer present Electronically Signed On 03-10-2024 21:31:08 COLLEGE ATHLETIC DIRECTOR by Ayde Vasquez M.D. [id number]
--- NOTE | 2024-03-10 15:16 | XRR_ITS ---
PROCEDURE INFORMATION: Exam: XR Chest Exam date and time: 03/10/2024 5:00 PM Age: 68 years old Clinical indication: Pain; Chest pressure; Prior surgery; Surgery date: 6+ months; Surgery type: Triple bypass; Additional info: Cp TECHNIQUE: Imaging protocol: Radiologic exam of the chest. Views: 1 view. COMPARISON: CT chest con [id number] 12/03/2022 7:35 AM FINDINGS: Lungs: No focal consolidation. Pleural spaces: No evidence of pneumothorax. No evidence of pleural effusion. Heart/Mediastinum: Postsurgical changes of the mediastinum compatible with prior CABG. Bones/joints: No evidence of acute osseous abnormality. XR/XR chest 1V portable [id number] IMPRESSION: 1. No acute cardiopulmonary abnormality.
[2024-03-10 15:22] VITALS: BP 137/72; PULSE 85; RESP 18; TEMP 36.7; O2SAT 97; BMI 30.1
[2024-03-10 16:42] LABS: Basophils # 0.1 10^3/uL (0.0-0.1); Basophils % 0.7 %; Eosinophils # 0.1 10^3/uL (0.0-0.8); Eosinophils % 1.2 %; Hematocrit 44.8 % (37-53); Lymphocytes # 1.6 10^3/uL (0.8-4.8); Lymphocytes % 20.6 %; Mean Corpuscular Hemoglobin 31.3 pg (27-33); Mean Corpuscular Volume 94.7 fl (82-101); Mean Platelet Volume 9.4 fL (7.4-10.4); Monocytes # 0.5 10^3/uL (0.2-0.9); Monocytes % 6.8 %; Neutrophils # 5.43 10^3/uL (1.8-7.7); Neutrophils % 70.6 %; Nucleated Red Blood Cells % 0 %; Platelet Count 250 10^3/cmm (157-399); Red Blood Count 4.73 10^6/uL (3.85-5.65); Red Cell Distribution Width 13.3 % (12.1-15.1); White Blood Count 7.68 10^3/uL (3.29-11.43)
[2024-03-10 16:57] LABS: INR 1.02 (0.8-1.2)
--- NOTE | 2024-03-10 17:00 | CTR_ITS ---
PROCEDURE INFORMATION: Exam: CT Head Without Contrast Exam date and time: 03/10/2024 5:36 PM Age: 68 years old Clinical indication: Pain; Headache not specified; Additional info: CAMACHO TECHNIQUE: Imaging protocol: Computed tomography of the head without contrast. Radiation optimization: All CT scans at this facility use at least one of these dose optimization techniques: automated exposure control; mA and/or kV adjustment per patient size (includes targeted exams where dose is matched to clinical indication); or iterative reconstruction. COMPARISON: CT head thrombolytic [id number] 09/25/2022 11:40 AM RADIATION DOSE METRICS: Total DLP (mGy-cm): 1122.28 FINDINGS: Brain: Sequela of moderate chronic microvascular ischemic changes with periventricular and deep white matter hypoattenuation. Lou-white differentiation is otherwise maintained. No evidence of intra-axial or extra-axial hemorrhage. No mass effect or midline shift. Basilar cisterns are patent. Cerebral ventricles: No hydrocephalus. Paranasal sinuses: The visualized paranasal sinuses are well aerated. Mastoid air cells: The visualized mastoids and middle ears are clear. Bones: Calvarium is intact. No evidence of acute fracture. Soft tissues: No gross soft tissue abnormality. CT/CT head wo con* [id number] IMPRESSION: 1. No acute intracranial abnormality. If there is clinical concern for acute ischemia beyond the window for neuro intervention, consider correlation with MRI.
--- NOTE | 2024-03-10 17:02 | W.ED.CHESTPA ---
Documented by User: Bernabe Anderson MD 03/10/24 17:59 HPI - Chest Pain General: Chief Complaint: Chest Pain Stated Complaint: chest pains, sob Time Seen by Provider: 03/10/24 16:55 Source: patient Mode of arrival: ambulatory Limitations: no limitations History of Present Illness: 68-year-old male has extensive history of coronary disease had a CABG in the past states has been having increasing chest pain over the last week. He states has been taking multiple nitro today and it does help his pain and he also takes Collins states he took 1 before arrival and is chest pain-free currently. He states he is also had some intermittent headaches and is concerned he has had a brain bleed in the past denies any headache currently. Had some mild dyspnea denies any vomiting diarrhea Associated symptoms: Deny abdominal pain, dyspnea, fever(s), nausea or vomiting Related Data Home Medications Medication Instructions Recorded Confirmed meclizine 12.5 mg tablet 12.5 mg PO DAILY PRN Dizziness Or 09/14/20 12/08/23 Vertigo cholecalciferol (vitamin D3) 25 25 mcg PO BEDTIME 02/12/21 12/08/23 mcg (1,000 unit) capsule acetaminophen 500 mg tablet 500 mg PO QPM 09/03/22 12/08/23 pyridoxine (vitamin B6) 100 mg 50 mg PO DAILY 09/25/22 12/08/23 tablet (Vitamin B-6) vitamin B12 0.5 mg-folic acid 1 mg 1 tab PO DAILY 09/25/22 12/08/23 tablet Previous Rx's Medication Instructions Recorded glucometer testing kit: strips #1 ea 07/20/19 #100 refill:3 , lancets#100 refills:#100 ASV Bipap adjustment #1 ea 09/20/21 ondansetron 4 mg disintegrating 4 mg PO Q8H PRN nausea and 09/05/22 tablet vomiting #7 tabs montelukast 10 mg tablet 10 mg PO DAILY #90 tabs 03/23/23 (Singulair) digoxin 250 mcg (0.25 mg) tablet 250 mcg PO DAILY@08 #90 tabs 06/02/23 (Digitek) metoprolol tartrate 50 mg tablet See Rx Instructions .Route 07/20/23 .COMPLEX #270 tabs albuterol sulfate 90 mcg/actuation 2 puff inhalation Q6H PRN 08/11/23 aerosol inhaler shortness of breath or wheezing #8.5 grams budesonide-formoterol HFA 80 2 puff inhalation BID #10.2 grams 08/11/23 mcg-4.5 mcg/actuation aerosol inhaler (Symbicort) isosorbide mononitrate 60 mg 60 mg PO BID #200 tabs 08/17/23 tablet,extended release 24 hr ezetimibe 10 mg tablet See Rx Instructions .Route 09/07/23 .COMPLEX #100 tabs tamsulosin 0.4 mg capsule 0.4 mg PO DAILY #90 caps 12/08/23 nitroglycerin 0.4 mg sublingual See Rx Instructions .Route 02/15/24 tablet .COMPLEX #25 tabs potassium chloride 10 mEq 10 meq PO DAILY #90 tabs 02/19/24 tablet,extended release furosemide 20 mg tablet 20 mg PO DAILY #100 tabs 02/22/24 Allergies Allergy/AdvReac Type Severity Reaction Status Date / Time shellfish derived Allergy Mild ADR-Vomitin Verified 03/10/24 15:25 g erythromycin base Allergy Unknown Verified 03/10/24 15:25 garlic Allergy Unknown Verified 03/10/24 15:25 Iodinated Contrast Media Allergy SWELLING Verified 03/10/24 15:25 lisinopril Allergy Unknown Verified 03/10/24 15:25 simvastatin Allergy Unknown Verified 03/10/24 15:25 Review of Systems Const: Denies: fever(s), chills, body aches or change in appetite Eyes: Denies: blurry vision or eye discomfort ENMT: Denies: throat pain or dental pain Card: Reports: chest pain Resp: Denies: dyspnea GI: Denies: abdominal pain, nausea, vomiting or diarrhea Musc: Denies: neck pain or back pain Skin/Breast: Denies: rash Neuro: Reports: headache(s) PFSH ED PFSH: Medical History Morbid obesity Obstructive sleep apnea treated with BiPAP History of multiple cerebrovascular accidents (CVAs) Includes a hemorrhagic stroke with residual hemiparesis and a cerebral infarct in the left hemisphere History of hemorrhagic stroke with residual hemiparesis Cerebral infarction, left hemisphere Lumbar and sacral osteoarthritis Dyslipidemia (high LDL; low HDL) S/P extracorporeal shock wave therapy Erectile dysfunction Urolithiasis BPH with obstruction/lower urinary tract symptoms HTN (hypertension) with goal to be determined Opioid contract exists [facility], Dr. Abel Spinal stenosis, lumbar region with neurogenic claudication chronic LBP & Left Hip pain Atrial fibrillation Surgical History History of angioplasty Stented coronary artery S/P CABG x 3 Status post endovenous radiofrequency ablation of saphenous vein Family History Father , at age 68 Emphysema lung Mother , at age 49 Heart disease Other CAD (coronary artery disease) Hypertension Lung disease Social History Smoking and tobacco/nicotine status: never used tobacco/nicotine Second hand smoke exposure: No Alcohol intake: never Substance/Drug Use: never Adopted: No Caregiver/support person: No Lives independently: No Household members: spouse Marital status: Current occupational status: retired Current gender identity: Male Physical Exam Const: COMMON NORMALS: no acute distress, patient oriented x3 and healthy appearing HENMT: COMMON NORMALS: normocephalic and atraumatic HEAD & SCALP: normocephalic and atraumatic Eye: COMMON NORMALS: Equal, round and reactive pupils present and EOMs intact bilaterally PUPIL: Yes Equal, round and reactive pupils present Neck/C-Spine: COMMON NORMALS: full ROM and supple Chest: COMMONS NORMALS: normal inspection of the chest Resp: COMMON NORMALS: normal respiratory effort, No retractions, No use of accessory muscles and clear to auscultation bilaterally AUSCULTATION: clear to auscultation bilaterally Cardio: COMMON NORMALS: regular rate, regular rhythm and No murmurs present (Cardio) RATE: regular rate RHYTHM: regular rhythm Extremity: COMMON NORMALS: normal to inspection and full ROM Neuro: COMMON NORMALS: patient oriented x3, moves all extremities and no focal motor deficits Psych: COMMON NORMALS: mental status grossly normal, Normal thought process present and cooperative THOUGHT PROCESS: Normal thought process present Skin: COMMON NORMALS: no rashes or lesions noted and no wounds GENERAL SKIN EXAM: no rashes or lesions noted Course Vital Signs: Vital signs: Vital Signs Temperature 98.1 F 03/10/24 15:22 Pulse Rate 69 03/10/24 18:15 Respiratory Rate 13 03/10/24 18:14 Blood Pressure 148/74 03/10/24 18:15 Pulse Oximetry 97 03/10/24 18:15 Oxygen Delivery Me thod Room Air 03/10/24 15:22 MDM - Chest Pain Medical Decision Making Patient presents here with chest pain I spoke to him after his first troponin come back and offered him admission due to his extensive history and increasing pain. 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 I did inform him multiple times and I would recommend admission with his history but came to a shared decision making we will wait for 2-hour troponin and reevaluate on that with him likely being discharged if it has a nonpositive delta. I did inform him that I am turning his care over to Dr. iRco who will talk to him when his 2-hour troponin comes back CT of his head is normal he has no signs of dissection or pulmonary embolism and he is pain-free here. Medical Records I reviewed the patient's medical records. Lab Data I reviewed the patient's lab results. 03/10/24 16:03 03/10/24 16:03 Radiology Impressions Chest X-Ray 03/10/24 15:16 IMPRESSION: 1. No acute cardiopulmonary abnormality. Head CT 03/10/24 17:00 IMPRESSION: 1. No acute intracranial abnormality. If there is clinical concern for acute ischemia beyond the window for neuro intervention, consider correlation with MRI. Laboratory Results WBC 7.68 10^3/uL (3.29-11.43) 03/10/24 16:03 RBC 4.73 10^6/uL (3.85-5.65) 03/10/24 16:03 Hgb 14.80 g/dL (11.27-16.99) 03/10/24 16:03 Hct 44.8 % (37-53) 03/10/24 16:03 MCV 94.7 fl (82-101) 03/10/24 16:03 MCH 31.3 pg (27-33) 03/10/24 16:03 MCHC 33.0 g/dL (30-55) 03/10/24 16:03 RDW 13.3 % (12.1-15.1) 03/10/24 16:03 Plt Count 250 10^3/cmm (157-399) 03/10/24 16:03 MPV 9.4 fL (7.4-10.4) 03/10/24 16:03 Neut % (Auto) 70.6 % 03/10/24 16:03 Lymph % (Auto) 20.6 % 03/10/24 16:03 [place] % (Auto) 6.8 % 03/10/24 16:03 Eos % (Auto) 1.2 % 03/10/24 16:03 Baso % (Auto) 0.7 % 03/10/24 16:03 Neut # (Auto) 5.43 10^3/uL (1.8-7.7) 03/10/24 16:03 Lymph # (Auto) 1.6 10^3/uL (0.8-4.8) 03/10/24 16:03 [place] # (Auto) 0.5 10^3/uL (0.2-0.9) 03/10/24 16:03 Eos # (Auto) 0.1 10^3/uL (0.0-0.8) 03/10/24 16:03 Baso # (Auto) 0.1 10^3/uL (0.0-0.1) 03/10/24 16:03 Nucleated RBC % (auto) 0 % 03/10/24 16:03 Nucleated RBCs # 0.0 /100WBC 03/10/24 16:03 PT 13.70 SECONDS (12.1-14.9) 03/10/24 16:03 INR 1.02 (0.8-1.2) 03/10/24 16:03 Sodium 140 mmol/L (136-145) 03/10/24 16:03 Potassium 4.1 mmol/L (3.5-5.1) 03/10/24 16:03 Chloride 103 mmol/L (98-107) 03/10/24 16:03 Carbon Dioxide 27 mmol/L (22-29) 03/10/24 16:03 Anion Gap 14.1 (5-19) 03/10/24 16:03 BUN 20 mg/dL (8-23) 03/10/24 16:03 Creatinine 0.5 mg/dL (0.7-1.2) L 03/10/24 16:03 GFR Calculation 165.4 mL/min (90-130) H 03/10/24 16:03 Glucose 117 mg/dL (65-115) H 03/10/24 16:03 Calculated Osmolality 294 mOsm/kg (285-295) 03/10/24 16:03 Calcium 8.5 mg/dL (8.5-10.5) 03/10/24 16:03 Total Bilirubin 0.5 mg/dL (0.15-1.2) 03/10/24 16:03 AST 25 U/L (0-40) 03/10/24 16:03 ALT 35 U/L (0-41) 03/10/24 16:03 Alkaline Phosphatase 101 U/L (40-130) 03/10/24 16:03 Troponin T Baseline 22 ng/L (0-15) H 03/10/24 16:03 Troponin T 120 Minute 20.74 ng/L (0-15) H 03/10/24 18:03 Delta Troponin T -1.26 ABS# (0-10) L 03/10/24 18:03 NT-Pro-B Natriuret Pep 369 pg/mL (0-125) H 03/10/24 16:03 Total Protein 6.7 g/dL (6.6-8.7) 03/10/24 16:03 Albumin 3.9 g/dL (3.5-5.2) 03/10/24 16:03 Globulin 2.8 g/dL (1.3-4.6) 03/10/24 16:03 Lipase 18 U/L (13-60) 03/10/24 16:03 All radiology interpretation(s) finalized by discharge Discharge Plan Discharge Patient Disposition: Home Condition: Stable Prescriptions: No Action (DME) glucometer testing kit: strips #100 refill:3 , lancets#100 refills:#100 Qty: 1 0RF Rx Instructions: glucometer testing kit: strips #100 refill:3 , lancets#100 refills:#100 meclizine 12.5 mg tablet 12.5 mg PO DAILY PRN (Reason: Dizziness Or Vertigo) cholecalciferol (vitamin D3) 25 mcg (1,000 unit) capsule 25 mcg PO BEDTIME montelukast [Singulair] 10 mg tablet 10 mg PO DAILY Qty: 90 3RF acetaminophen 500 mg tablet 500 mg PO QPM budesonide-formoterol [Symbicort] 80-4.5 mcg/actuation HFA aerosol inhaler 2 puff inhalation BID Qty: 10.2 6RF albuterol sulfate 90 mcg/actuation HFA aerosol inhaler 2 puff inhalation Q6H PRN (Reason: shortness of breath or wheezing) Qty: 8.5 6RF (DME) ASV Bipap adjustment See Rx Instructions .Route .MEDSUPPLY Qty: 1 0RF Rx Instructions: Back up rate 8-4 ondansetron 4 mg tablet,disintegrating 4 mg PO Q8H PRN (Reason: nausea and vomiting) Qty: 7 0RF Digitek 250 mcg (0.25 mg) tablet 250 mcg PO DAILY@08 Qty: 90 3RF metoprolol tartrate 50 mg tablet See Rx Instructions .ROUTE .COMPLEX Qty: 270 3RF Dose Instruction: TAKE 1 AND 1/2 TABLETS BY MOUTH TWICE DAILY AT 8AM AND 8PM Rx Instructions: TAKE 1 AND 1/2 TABLETS BY MOUTH TWICE DAILY AT 8AM AND 8PM isosorbide mononitrate 60 mg tablet extended release 24 hr 60 mg PO BID Qty: 200 3RF ezetimibe 10 mg tablet See Rx Instructions .ROUTE .COMPLEX Qty: 100 3RF Dose Instruction: TAKE 1 TABLET BY MOUTH DAILY Rx Instructions: TAKE 1 TABLET BY MOUTH DAILY tamsulosin 0.4 mg capsule 0.4 mg PO DAILY Qty: 90 3RF nitroglycerin 0.4 mg tablet, sublingual See Rx Instructions .ROUTE .COMPLEX Qty: 25 0RF Dose Instruction: DISSOLVE 1 TABLET UNDER THE TONGUE EVERY 5 MINUTES NEEDED FOR CHEST PAIN. DO NOT EXCEED A TOTAL OF 3 DOSES IN 15 MINUTES. Rx Instructions: DISSOLVE 1 TABLET UNDER THE TONGUE EVERY 5 MINUTES NEEDED FOR CHEST PAIN. DO NOT EXCEED A TOTAL OF 3 DOSES IN 15 MINUTES. potassium chloride 10 mEq tablet extended release 10 meq PO DAILY Qty: 90 3RF furosemide 20 mg tablet 20 mg PO DAILY Qty: 100 1RF Vitamin B-6 100 mg Tablet 50 mg PO DAILY vitamin [id number] acid 0.5-1 mg Tablet 1 tab PO DAILY Discharge Orders: Discharge ED (Routine); Ordered 03/10/24 Ordered By: Nara Polk Referrals: David Villela MD [Primary Care Provider] - Discharge Diet: Usual diet Discharge Activity: Resume usual activity Patient Instructions: Opioid Safety, Pain Management Activity Restrictions/Additional Instructions: Thank you for choosing [facility] for your healthcare needs today. Please realize this is an emergency room and that we are providing you with a medical screening exam and this may not be complete and all inclusive of all the testing and or work up that you may need to determine your ailment or severity of your illness. You have been screened and evaluated and felt safe for discharge. Health conditions do change or evolve sometimes and as such it is important that you follow up with your Primary Doctor to be re checked, 3-5 days is a general good time frame for follow up. You are always welcome to return to the ED for re assessment if your symptoms are worsening or you have new concerns Coding Level of Care Code ED Roof Tiler for Chg Fwd Documented by User: Nara Polk MD 03/10/24 18:34 HPI - Chest Pain General: Chief Complaint: Chest Pain Stated Complaint: chest pains, sob Time Seen by Provider: 03/10/24 16:55 Related Data Home Medications Medication Instructions Recorded Confirmed meclizine 12.5 mg tablet 12.5 mg PO DAILY PRN Dizziness Or 09/14/20 12/08/23 Vertigo cholecalciferol (vitamin D3) 25 25 mcg PO BEDTIME 02/12/21 12/08/23 mcg (1,000 unit) capsule acetaminophen 500 mg tablet 500 mg PO QPM 09/03/22 12/08/23 pyridoxine (vitamin B6) 100 mg 50 mg PO DAILY 09/25/22 12/08/23 tablet (Vitamin B-6) vitamin B12 0.5 mg-folic acid 1 mg 1 tab PO DAILY 09/25/22 12/08/23 tablet Previous Rx's Medication Instructions Recorded glucometer testing kit: strips #1 ea 07/20/19 #100 refill:3 , lancets#100 refills:#100 ASV Bipap adjustment #1 ea 09/20/21 ondansetron 4 mg disintegrating 4 mg PO Q8H PRN nausea and 09/05/22 tablet vomiting #7 tabs montelukast 10 mg tablet 10 mg PO DAILY #90 tabs 03/23/23 (Singulair) digoxin 250 mcg (0.25 mg) tablet 250 mcg PO DAILY@08 #90 tabs 06/02/23 (Digitek) metoprolol tartrate 50 mg tablet See Rx Instructions .Route 07/20/23 .COMPLEX #270 tabs albuterol sulfate 90 mcg/actuation 2 puff inhalation Q6H PRN 08/11/23 aerosol inhaler shortness of breath or wheezing #8.5 grams budesonide-formoterol HFA 80 2 puff inhalation BID #10.2 grams 08/11/23 mcg-4.5 mcg/actuation aerosol inhaler (Symbicort) isosorbide mononitrate 60 mg 60 mg PO BID #200 tabs 08/17/23 tablet,extended release 24 hr ezetimibe 10 mg tablet See Rx Instructions .Route 09/07/23 .COMPLEX #100 tabs tamsulosin 0.4 mg capsule 0.4 mg PO DAILY #90 caps 12/08/23 nitroglycerin 0.4 mg sublingual See Rx Instructions .Route 02/15/24 tablet .COMPLEX #25 tabs potassium chloride 10 mEq 10 meq PO DAILY #90 tabs 02/19/24 tablet,extended release furosemide 20 mg tablet 20 mg PO DAILY #100 tabs 02/22/24 Allergies Allergy/AdvReac Type Severity Reaction Status Date / Time shellfish derived Allergy Mild ADR-Vomitin Verified 03/10/24 15:25 g erythromycin base Allergy Unknown Verified 03/10/24 15:25 garlic Allergy Unknown Verified 03/10/24 15:25 Iodinated Contrast Media Allergy SWELLING Verified 03/10/24 15:25 lisinopril Allergy Unknown Verified 03/10/24 15:25 simvastatin Allergy Unknown Verified 03/10/24 15:25 [facility] ED PFSH: Medical History Morbid obesity Obstructive sleep apnea treated with BiPAP History of multiple cerebrovascular accidents (CVAs) Includes a hemorrhagic stroke with residual hemiparesis and a cerebral infarct in the left hemisphere History of hemorrhagic stroke with residual hemiparesis Cerebral infarction, left hemisphere Lumbar and sacral osteoarthritis Dyslipidemia (high LDL; low HDL) S/P extracorporeal shock wave therapy Erectile dysfunction Urolithiasis BPH with obstruction/lower urinary tract symptoms HTN (hypertension) with goal to be determined Opioid contract exists [facility], Dr. Abel Spinal stenosis, lumbar region with neurogenic claudication chronic LBP & Left Hip pain Atrial fibrillation Surgical History History of angioplasty Stented coronary artery S/P CABG x 3 Status post endovenous radiofrequency ablation of saphenous vein Family History Father , at age 68 Emphysema lung Mother , at age 49 Heart disease Other CAD (coronary artery disease) Hypertension Lung disease Social History Smoking and tobacco/nicotine status: never used tobacco/nicotine Second hand smoke exposure: No Alcohol intake: never Substance/Drug Use: never Adopted: No Caregiver/support person: No Lives independently: No Household members: spouse Marital status: Current occupational status: retired Current gender identity: Male Course Vital Signs: Vital signs: Vital Signs Temperature 98.1 F 03/10/24 15:22 Pulse Rate 69 03/10/24 18:15 Respiratory Rate 13 03/10/24 18:14 Blood Pressure 148/74 03/10/24 18:15 Pulse Oximetry 97 03/10/24 18:15 Oxygen Delivery Me thod Room Air 03/10/24 15:22 MDM - Chest Pain Medical Decision Making Patient presents here with chest pain I spoke to him after his first troponin come back and offered him admission due to his extensive history and increasing pain. 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 I did inform him multiple times and I would recommend admission with his history but came to a shared decision making we will wait for 2-hour troponin and reevaluate on that with him likely being discharged if it has a nonpositive delta. I did inform him that I am turning his care over to Dr. Rico who will talk to him when his 2-hour troponin comes back CT of his head is normal he has no signs of dissection or pulmonary embolism and he is pain-free here. Patient care was transitioned to al to follow-up on the final troponin. Patient had been offered admission but just wanted to make sure that his troponin did not go up. Troponin is not significantly changed still around 20. Lab Data 03/10/24 16:03 03/10/24 16:03 Radiology Impressions Chest X-Ray 03/10/24 15:16 IMPRESSION: 1. No acute cardiopulmonary abnormality. Head CT 03/10/24 17:00 IMPRESSION: 1. No acute intracranial abnormality. If there is clinical concern for acute ischemia beyond the window for neuro intervention, consider correlation with MRI. Laboratory Results WBC 7.68 10^3/uL (3.29-11.43) 03/10/24 16:03 RBC 4.73 10^6/uL (3.85-5.65) 03/10/24 16:03 Hgb 14.80 g/dL (11.27-16.99) 03/10/24 16:03 Hct 44.8 % (37-53) 03/10/24 16:03 MCV 94.7 fl (82-101) 03/10/24 16:03 MCH 31.3 pg (27-33) 03/10/24 16:03 MCHC 33.0 g/dL (30-55) 03/10/24 16:03 RDW 13.3 % (12.1-15.1) 03/10/24 16:03 Plt Count 250 10^3/cmm (157-399) 03/10/24 16:03 MPV 9.4 fL (7.4-10.4) 03/10/24 16:03 Neut % (Auto) 70.6 % 03/10/24 16:03 Lymph % (Auto) 20.6 % 03/10/24 16:03 [place] % (Auto) 6.8 % 03/10/24 16:03 Eos % (Auto) 1.2 % 03/10/24 16:03 Baso % (Auto) 0.7 % 03/10/24 16:03 Neut # (Auto) 5.43 10^3/uL (1.8-7.7) 03/10/24 16:03 Lymph # (Auto) 1.6 10^3/uL (0.8-4.8) 03/10/24 16:03 [place] # (Auto) 0.5 10^3/uL (0.2-0.9) 03/10/24 16:03 Eos # (Auto) 0.1 10^3/uL (0.0-0.8) 03/10/24 16:03 Baso # (Auto) 0.1 10^3/uL (0.0-0.1) 03/10/24 16:03 Nucleated RBC % (auto) 0 % 03/10/24 16:03 Nucleated RBCs # 0.0 /100WBC 03/10/24 16:03 PT 13.70 SECONDS (12.1-14.9) 03/10/24 16:03 INR 1.02 (0.8-1.2) 03/10/24 16:03 Sodium 140 mmol/L (136-145) 03/10/24 16:03 Potassium 4.1 mmol/L (3.5-5.1) 03/10/24 16:03 Chloride 103 mmol/L (98-107) 03/10/24 16:03 Carbon Dioxide 27 mmol/L (22-29) 03/10/24 16:03 Anion Gap 14.1 (5-19) 03/10/24 16:03 BUN 20 mg/dL (8-23) 03/10/24 16:03 Creatinine 0.5 mg/dL (0.7-1.2) L 03/10/24 16:03 GFR Calculation 165.4 mL/min (90-130) H 03/10/24 16:03 Glucose 117 mg/dL (65-115) H 03/10/24 16:03 Calculated Osmolality 294 mOsm/kg (285-295) 03/10/24 16:03 Calcium 8.5 mg/dL (8.5-10.5) 03/10/24 16:03 Total Bilirubin 0.5 mg/dL (0.15-1.2) 03/10/24 16:03 AST 25 U/L (0-40) 03/10/24 16:03 ALT 35 U/L (0-41) 03/10/24 16:03 Alkaline Phosphatase 101 U/L (40-130) 03/10/24 16:03 Troponin T Baseline 22 ng/L (0-15) H 03/10/24 16:03 Troponin T 120 Minute 20.74 ng/L (0-15) H 03/10/24 18:03 Delta Troponin T -1.26 ABS# (0-10) L 03/10/24 18:03 NT-Pro-B Natriuret Pep 369 pg/mL (0-125) H 03/10/24 16:03 Total Protein 6.7 g/dL (6.6-8.7) 03/10/24 16:03 Albumin 3.9 g/dL (3.5-5.2) 03/10/24 16:03 Globulin 2.8 g/dL (1.3-4.6) 03/10/24 16:03 Lipase 18 U/L (13-60) 03/10/24 16:03 Discharge Plan Discharge Patient Disposition: Home Condition: Stable Prescriptions: No Action (DME) glucometer testing kit: strips #100 refill:3 , lancets#100 refills:#100 Qty: 1 0RF Rx Instructions: glucometer testing kit: strips #100 refill:3 , lancets#100 refills:#100 meclizine 12.5 mg tablet 12.5 mg PO DAILY PRN (Reason: Dizziness Or Vertigo) cholecalciferol (vitamin D3) 25 mcg (1,000 unit) capsule 25 mcg PO BEDTIME montelukast [Singulair] 10 mg tablet 10 mg PO DAILY Qty: 90 3RF acetaminophen 500 mg tablet 500 mg PO QPM budesonide-formoterol [Symbicort] 80-4.5 mcg/actuation HFA aerosol inhaler 2 puff inhalation BID Qty: 10.2 6RF albuterol sulfate 90 mcg/actuation HFA aerosol inhaler 2 puff inhalation Q6H PRN (Reason: shortness of breath or wheezing) Qty: 8.5 6RF (DME) ASV Bipap adjustment See Rx Instructions .Route .MEDSUPPLY Qty: 1 0RF Rx Instructions: Back up rate 8-4 ondansetron 4 mg tablet,disintegrating 4 mg PO Q8H PRN (Reason: nausea and vomiting) Qty: 7 0RF Digitek 250 mcg (0.25 mg) tablet 250 mcg PO DAILY@08 Qty: 90 3RF metoprolol tartrate 50 mg tablet See Rx Instructions .ROUTE .COMPLEX Qty: 270 3RF Dose Instruction: TAKE 1 AND 1/2 TABLETS BY MOUTH TWICE DAILY AT 8AM AND 8PM Rx Instructions: TAKE 1 AND 1/2 TABLETS BY MOUTH TWICE DAILY AT 8AM AND 8PM isosorbide mononitrate 60 mg tablet extended release 24 hr 60 mg PO BID Qty: 200 3RF ezetimibe 10 mg tablet See Rx Instructions .ROUTE .COMPLEX Qty: 100 3RF Dose Instruction: TAKE 1 TABLET BY MOUTH DAILY Rx Instructions: TAKE 1 TABLET BY MOUTH DAILY tamsulosin 0.4 mg capsule 0.4 mg PO DAILY Qty: 90 3RF nitroglycerin 0.4 mg tablet, sublingual See Rx Instructions .ROUTE .COMPLEX Qty: 25 0RF Dose Instruction: DISSOLVE 1 TABLET UNDER THE TONGUE EVERY 5 MINUTES NEEDED FOR CHEST PAIN. DO NOT EXCEED A TOTAL OF 3 DOSES IN 15 MINUTES. Rx Instructions: DISSOLVE 1 TABLET UNDER THE TONGUE EVERY 5 MINUTES NEEDED FOR CHEST PAIN. DO NOT EXCEED A TOTAL OF 3 DOSES IN 15 MINUTES. potassium chloride 10 mEq tablet extended release 10 meq PO DAILY Qty: 90 3RF furosemide 20 mg tablet 20 mg PO DAILY Qty: 100 1RF Vitamin B-6 100 mg Tablet 50 mg PO DAILY vitamin [id number] acid 0.5-1 mg Tablet 1 tab PO DAILY Discharge Orders: Discharge ED (Routine); Ordered 03/10/24 Ordered By: Nara Polk Referrals: David Villela MD [Primary Care Provider] - Discharge Diet: Usual diet Discharge Activity: Resume usual activity Patient Instructions: Opioid Safety, Pain Management Activity Restrictions/Additional Instructions: Thank you for choosing [facility] for your healthcare needs today. Please realize this is an emergency room and that we are providing you with a medical screening exam and this may not be complete and all inclusive of all the testing and or work up that you may need to determine your ailment or severity of your illness. You have been screened and evaluated and felt safe for discharge. Health conditions do change or evolve sometimes and as such it is important that you follow up with your Primary Doctor to be re checked, 3-5 days is a general good time frame for follow up. You are always welcome to return to the ED for re assessment if your symptoms are worsening or you have new concerns Coding Level of Care Code ED Roof Tiler for Kamila Dubon
--- NOTE | 2024-03-10 17:16 | ECG_ITS ---
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 Measurements Intervals [place] Rate: 73 P: 0 CT: 0 QRS: 1 QRSD: 121 T: 82 QT: 362 QTc: 401 Interpretive Statements ATRIAL FIBRILLATION MODERATE INTRAVENTRICULAR CONDUCTION DELAY [105+ ms QRS DURATION, 80+ ms Q/S IN V1/V2, NO Q AND 60+ ms R IN I/aVL/V5/V6] NONSPECIFIC ST & T-WAVE ABNORMALITY Compared to ECG 03/10/2024 15:19:07 Intraventricular conduction delay now present T-wave abnormality now present Myocardial infarct finding no longer present Electronically Signed On 03-13-2024 21:02:20 LAUNDRY MANAGER by Ayde Vasquez M.D. [email or web address]
[2024-03-10 17:18] LABS: Troponin(5th) Baseline 22 ng/L (0-15)
[2024-03-10 17:27] LABS: Alanine Aminotransferase 35 U/L (0-41); Albumin Level 3.9 g/dL (3.5-5.2); Alkaline Phosphatase 101 U/L (40-130); Anion Gap 14.1 (5-19); Aspartate Amino Transferase 25 U/L (0-40); Blood Urea Nitrogen 20 mg/dL (8-23); Calcium 8.5 mg/dL (8.5-10.5); Carbon Dioxide 27 mmol/L (22-29); Chloride 103 mmol/L (98-107); Globulin 2.8 g/dL (1.3-4.6); Glomerular Filtration Rate 165.4 mL/min (90-130); Glucose 117 mg/dL (65-115); Lipase 18 U/L (13-60); NT Pro B Type Natriuretic Pept 369 pg/mL (0-125); Osmolality Calculated 294 mOsm/kg (285-295); Potassium 4.1 mmol/L (3.5-5.1); Sodium 140 mmol/L (136-145); Total Bilirubin 0.5 mg/dL (0.15-1.2); Total Protein 6.7 g/dL (6.6-8.7)
[2024-03-10 18:14] VITALS: PULSE 75; RESP 13; O2SAT 96
[2024-03-10 18:15] VITALS: BP 148/74; PULSE 69; O2SAT 97
[2024-03-10 18:28] LABS: Troponin 5 2HR 20.74 ng/L (0-15); Troponin 5 2HR Delta -1.26 ABS# (0-10)
[2024-03-10 18:45] VITALS: BP 151/76; PULSE 72; O2SAT 94
--- NOTE | 2024-03-11 02:34 | DCPLANNER ---
Message sent to Cardiology for follow up-
== END 2024-03-10 18:47 | disposition home or self-care (01) ==
PROVIDERS: Emergency Medicine; Emergency Provider Emergency Medicine; PCP Family Medicine Adult Medicine
DX: R07.9 Chest pain, unspecified (principal); I25.10 Atherosclerotic heart disease of native coronary artery without angina pectoris; I10 Essential (primary) hypertension; E78.5 Hyperlipidemia, unspecified; Z95.1 Presence of aortocoronary bypass graft
CPT/HCPCS: 36415; 70450; 71045; 80053; 83690; 83880; 84484; 85025; 85610; 93005; 99285

== ENCOUNTER → 2024-03-17 13:49 | Outpatient (BNVA) | payer MEDICARE, SELFPAY | PROVIDERS: PCP Family Medicine Adult Medicine; Visit Provider Internal Medicine | DX: R07.9 Chest pain, unspecified (principal); I10 Essential (primary) hypertension; I48.91 Unspecified atrial fibrillation; Z95.1 Presence of aortocoronary bypass graft; I69.159 Hemiplegia and hemiparesis following nontraumatic intracerebral hemorrhage affecting unspecified side | CPT/HCPCS: 99214 ==

== ENCOUNTER 2024-03-29 06:06 | Outpatient (CLI) | payer MEDICARE, SELFPAY ==
[2024-03-29] VITALS (31 sets, daily range): BP systolic 122–160; BP diastolic 48–112; PULSE 64–140; RESP 3–26; TEMP 36.8; O2SAT 92–99; BMI 29.8
--- NOTE | 2024-03-29 06:00 | XACV_ITS ---
Ht: 178 cm Wt: 94 kg BSA: 2.18 m2 Gender: Male : 1955 Any Known Allergies: Other Exam Priority: Routine Indication(s): - Angina Procedure(s): Procedure Description: Diagnostic procedure Procedure Description: Left Heart Catheterization Procedure Description: Left ventriculography Procedure Description: Venous Graft Catheterization Procedure Description: BASURTO Graft Catheterization Procedure Description: Coronary Angiography Diagnostic Cath Status: Elective Diagnostic Findings * INDICATION: Worsening angina. * Left Main has mild to moderate luminal irregularities. * Mid Left Anterior Descending: total occlusion, LEAH: 0 flow. Competitive flow seen from BASURTO. * Proximal Right Coronary Artery to Mid Right Coronary Artery: mild 30-40% stenosis, LEAH: 3 flow. PDA is totally occluded. * Proximal Circumflex: obstructive 70% stenosis, LEAH: 3 flow. Mid to distal vessel has severe diffuse disease.. * Bypass grafts: BASURTO to LAD is patent. SVG to OM is patent. SVG to diagonal artery is patent. * Coronary angiography shows right dominance. Conclusions 1. Severe nulato coronary artery disease. Patent bypass grafts. 2. Patient has prior CABG. 3. Mild left ventricular systolic dysfunction. Ejection fraction of 45%. Recommendations * Aggressive risk factor modification. Uptitrate antianginal therapy as needed. * Outpatient cardiology follow up in 2 weeks. Interventional RX Recommendation: medical therapy and/or counseling Diagnostic RX Recommendation: medical therapy and/or counseling Ventriculography Ejection Fraction: 45.0 % Pressures Phase:Rest AO : 142 / 99 ( 122 ) @ 9:07:00 AM 124 / 31 ( 63 ) @ 9:21:00 AM LV : 137 / -10 / 3 @ 9:20:00 AM 147 / -13 / 4 @ 9:21:00 AM Clinical Evaluation EBL: 5mL-10mL Procedural Details Procedure Consent Obtained. Pre-Procedure Time Out. Identified patient by full name and date of as verbalized by the patient/guarantor. Does the consent match the physician's order: Yes. Accurate & Complete Informed Consent: Yes. Inpatient/Outpatient History & Physical on Chart: Yes. If H&P is completed, is and addenduem needed: No; If yes, is the addendum complete: N/A. Visualize and Verify Site with Patient/Guarantor: N/A. Relevant Radiology Images available: N/A. The risks, benefits, and alternatives of sedation and/or procedure were discussed by physician. The patient agrees to continue. Procedure started. [facility] Clinical Fraility Score: 6: Moderately Frail. Podiatric Medicine Professor Indications: Worsening Angina. Chest Pain Symptom Assessment: Typical Angina Symptoms. Cardiovascular Instability: No. Correct patient, site and procedure confirmed by cath team. Current diagnosis: Chest Pain; Worsening Angina. PERRLA. Strong, equal hand blueprint assembler bilaterally. Lungs clear x 5 lobes. IV Site on Arrival: 20 gauge in the left anticubital. IV Fluids: 0.9% NaCl at KVO. 0 mL infused prior to veterinary laboratory diagnostician. Pre Procedural Pulses: bilateral posterior tibial was 1+. Pre Procedural Pulses: bilateral dorsalis pedis was 3+. Pre Procedural Pulses: bilateral radial was 3+. Oxygen started at 3liters/min via nasal canula. bilateral groins was prepped with chloroprep then draped in the usual sterile fashion. Physician notified. Baseline sample Acquired. HR: 68 BPM. Physician arrived. Physician scrubbed in. Immediate Pre-Procedure Time Out. Correct Patient: Yes; Correct Procedure: Yes; Correct Site: Yes; Correct Patient Position: Yes; Correct Supplies: Yes; Dried Flammable Prep: Yes; Blood Products Available: N/A;. Lidocaine 1% infiltrated to the right groin. Admit Source: Out Patient. Current Diagnosis : Chest Pain. Arterial access obtained. A 5 german JL4 catheter in over wire. Multiple views taken of left coronary artery. Catheter removed over the standard wire. A 5 german JR4 catheter in over wire. Multiple views taken of right coronary artery. Family updated by MD prior to the start of the procedure. Redirected to the BASURTO graft. BASURTO to LAD visualized. Catheter removed over the standard wire. A 5 german AL1 catheter in over wire. SVG's to OM visualized and patent. SVG's to Diaganol visualized and patent. Catheter removed over the standard wire. A 5 german Angled Pig catheter in over wire. EDP Sample taken: LV 137/-11,3; HR: 74 BPM; SpO2: 98%. LV gram performed in HERNANDEZ @ 10 mL/second for a total of 30 mL. Patient EF: Abnormal. EDP Sample taken: LV 147/-14,4; HR: 80 BPM; SpO2: 97%. Pullback taken: LV Off; AO Off; Mean: , Peak to Peak: , SEP: ; HR: 79 BPM; SpO2: 96%. Catheter removed over the standard wire. A Right femoral angiogram was performed to determine safe placement of closure device. Physician review of films. Medication waste: Lidocaine- 1 ml. Heparin- 1000 units Fentanyl- 25 mcg Versed. 1 mg. A Suture was successful obtaining hemostatsis at the Right Femoral artery insertion site. Sheath(s) sutured into position with 2-0 silk and sterile 4x4's and Op-site applied over the site. No oozing or signs and symptoms of hematoma noted. Arterial sheath flushed and connected to tranducer and pressure bag with heparinized saline. Post Procedure: Pulses reassessed and unchanged. PERRLA. Strong, equal hand blueprint assembler bilaterally. No VTE prophylaxis required. Total IV fluids: 25 mL. Fluoro: 9:02. Contrast type used: Omnipaque 300 mgI/mL, 500 mL bottle. [id number]. Post-op diagnosis: Non Obstuctive CAD. Complications: None. Estimated blood loss: 5mL-10mL. Responsiveness - Normal response to verbal stimuli; alert and oriented, PERRLA. Airway - Unaffected, no intervention required; spontaneous ventilation. Circulation: W/N/L, pulses unchanged. Nausea/Vomiting: No. Procedure completed. Patient transferred by bed to 1st floor. Vital chart was stopped. Access Site Site: Right Femoral artery Sheath Size: 6 Fr Hemostasis Method: Suture Hemostasis Success: Successful Procedure Medications Start: 8:58 AM Stop: 8:58 AM Medication: Versed Amount: 1 mg Route: I.V. Start: 8:58 AM Stop: 8:58 AM Medication: Fentanyl Amount: 50 mcg Route: I.V. Start: 8:59 AM Stop: 8:59 AM Medication: Versed Amount: 1 mg Route: I.V. Start: 9:13 AM Stop: 9:13 AM Medication: Versed 1 mg and Fentanyl 25 mcg Amount: 1 Route: I.V. I, the attending physician, have reviewed and verified all procedure medications. Yes, all medications given per verbal order History/Risk Factors Hypertension: Yes Dyslipidemia: Yes Peripheral Arterial Disease (PAD): No Myocardial Infarction (OR): No Obesity: Yes Renal Disease: No Tobacco Use: Never Prior Interventions PCI: Yes CABG: Yes Valve Surgery: No Date of PCI: 08/17/2014 Report Signatures Finalized by Abdullahi Vickers MD on 04/07/2024 08:32 AM
[2024-03-29] MEDS: diphenhydrAMINE 50 mg Capsule PO (06:45)
[2024-03-29] MEDS: aspirin 325 mg Tablet PO (06:45)
[2024-03-29 06:58] LABS: Basophils % 0.1 %; Hematocrit 46.8 % (37-53); Lymphocytes # 0.8 10^3/uL (0.8-4.8); Lymphocytes % 9.6 %; Mean Corpuscular HGB Conc 32.7 g/dL (30-55); Mean Corpuscular Volume 94.9 fl (82-101); Mean Platelet Volume 9.4 fL (7.4-10.4); Monocytes # 0.2 10^3/uL (0.2-0.9); Monocytes % 1.9 %; Neutrophils # 6.86 10^3/uL (1.8-7.7); Nucleated Red Blood Cells % 0 %; Platelet Count 296 10^3/cmm (157-399); Red Blood Count 4.93 10^6/uL (3.85-5.65); Red Cell Distribution Width 13.4 % (12.1-15.1)
[2024-03-29 07:15] LABS: Anion Gap 16.8 (5-19); Blood Urea Nitrogen 23 mg/dL (8-23); Calcium 9.4 mg/dL (8.5-10.5); Carbon Dioxide 27 mmol/L (22-29); Chloride 102 mmol/L (98-107); Creatinine Clr Calc Pharmacy 100.5079; Glomerular Filtration Rate 133.6 mL/min (90-130); Glucose 203 mg/dL (65-115); Osmolality Calculated 301 mOsm/kg (285-295); Potassium 4.8 mmol/L (3.5-5.1); Sodium 141 mmol/L (136-145)
--- NOTE | 2024-03-29 08:47 | W.PM.OPSUD ---
Surgery/Procedure H&P Update DATE OF PROCEDURE: March 29, 2024 DATE H&P PERFORMED: 03/17/24 H&P UPDATE INFORMATION: I have reviewed H&P completed within last 30 days, I have examined patient prior to procedure and No changes to prior documentation PREOP DIAGNOSIS: Worsening angina PRIMARY INDICATION FOR PROCEDURE: Worsening angina PLANNED PROCEDURE: Operation Date: 03/29/24 07:00 Proposed Procedures p Cardiac Catheterization - [facility] w/wo LV & Coros(Left) - Abdullahi Vickers M.D Possible percutaneous coronary intervention PATIENT REASSESSED PRIOR TO SEDATION, WITH NO CHANGE NOTED: Yes PHYSICAL EXAM: alert, oriented x 3, clear to auscultation bilaterally and regular rate & rhythm AIRWAY EVAL/ANESTHESIA PLAN: normal airway, ASA III, Local Anesthesia, Risks, benefits & alternatives of sedation and/or procedure discussed and Patient agrees to continue as planned ADDITIONAL INFORMATION: Moderate sedation
[2024-03-29] MEDS: HYDROcodone-acetaminophen 10-325 mg Tablet 1 TAB PO (12:54)
--- NOTE | 2024-03-29 14:12 | PC.NURSE ---
Addendum entered by Seema Mar RN 03/29/24 16:43: pt is not sr on monitor...he is chronic afib at controlled rate Original Note: received from cardiac laboratory inspector via bed at 0950.report received.pt is alert and oriented x4 .denies pain at present.sr on monitor.right femoral arterial sheath intact to pressurized system.right groin insertion site with drsg dry and intact.no hematoma noted.right leg is warm to touch and with brisk capillary refill.palpable right dp pulse noted.no heparin was given during procedure...so arterial sheath ordered to be removed hawk.sheath removed at 1000.manual pressure applied x 20 min.vss through-out procedure.no hematoma formation noted.pt tolerated procedure well.pt instructed in activity restrictions s/p femoral artery sheath pull...and instructed to notify staff for any bleeding,pain,numbness,sob,or for any concerns at all.pt verb understanding of instructions
[2024-03-29] MEDS: metoprolol tartrate 50 mg Tablet 75 MG PO (17:19)
--- NOTE | 2024-03-29 17:42 | PC.NURSE ---
pt uo and around out of bed at 1630.pt in chronic afib....had taken his morning dose of metoprolol early this morning.hr 110's..dr sands ordered pt's usual evening dose of 75 mg metoprolol to be given now.med given as ordered..no hematoma formation noted.discharge instructions given and explained.pt and spouse verb understanding of instructions.discharged via w/c at this time to exit.spouse to drive pt home
== END 2024-03-29 17:46 | disposition home or self-care (01) ==
LOC: CCL 06:16 → CSU 09:44
PROVIDERS: PCP Family Medicine Adult Medicine; Visit Provider Internal Medicine
DX: I25.110 Atherosclerotic heart disease of native coronary artery with unstable angina pectoris (principal); Z95.1 Presence of aortocoronary bypass graft; I10 Essential (primary) hypertension; E78.5 Hyperlipidemia, unspecified; E66.9 Obesity, unspecified; Z68.29 Body mass index [BMI] 29.0-29.9, adult; Z86.73 Personal history of transient ischemic attack (TIA), and cerebral infarction without residual deficits; N40.1 Benign prostatic hyperplasia with lower urinary tract symptoms; I48.91 Unspecified atrial fibrillation
CPT/HCPCS: 36415; 80048; 85025; 93459; 96365; 99152; C1769; C1887; C1894; J1644; J2250; J3010; J7030; Q0163; Q9967

== ENCOUNTER → 2024-04-06 13:11 | Outpatient (BNVA) | payer MEDICARE, SELFPAY | PROVIDERS: PCP Family Medicine Adult Medicine; Visit Provider Nurse Practitioner Family | DX: I48.91 Unspecified atrial fibrillation (principal); I10 Essential (primary) hypertension; G47.33 Obstructive sleep apnea (adult) (pediatric); Z99.89 Dependence on other enabling machines and devices | CPT/HCPCS: 36415; 80048; 99214 ==

== ENCOUNTER → 2024-04-14 13:39 | Outpatient (BNVA) | payer MEDICARE, SELFPAY | PROVIDERS: PCP Family Medicine Adult Medicine; Visit Provider Internal Medicine Cardiovascular Disease | DX: R07.9 Chest pain, unspecified (principal); I10 Essential (primary) hypertension; T14.8XXA Other injury of unspecified body region, initial encounter; X58.XXXA Exposure to other specified factors, initial encounter; Z95.1 Presence of aortocoronary bypass graft; I25.10 Atherosclerotic heart disease of native coronary artery without angina pectoris | CPT/HCPCS: 99214 ==

== ENCOUNTER 2024-07-03 14:27 | Emergency (ER) | payer MEDICARE, SELFPAY ==
[2024-07-03] VITALS (7 sets, daily range): BP systolic 118–143; BP diastolic 56–77; PULSE 75–82; RESP 16–18; TEMP 36.6; O2SAT 95–100; BMI 29.8
[2024-07-03 17:54] LABS: Basophils % 0.4 %; Eosinophils # 0.1 10^3/uL (0.0-0.8); Hematocrit 43.6 % (37-53); Lymphocytes # 1.7 10^3/uL (0.8-4.8); Lymphocytes % 17.6 %; Mean Corpuscular HGB Conc 32.3 g/dL (30-55); Mean Corpuscular Hemoglobin 31.3 pg (27-33); Mean Corpuscular Volume 96.7 fl (82-101); Mean Platelet Volume 9.6 fL (7.4-10.4); Monocytes # 0.8 10^3/uL (0.2-0.9); Monocytes % 8.1 %; Neutrophils # 6.81 10^3/uL (1.8-7.7); Neutrophils % 72.6 %; Nucleated Red Blood Cells % 0 %; Platelet Count 223 10^3/cmm (157-399); Red Blood Count 4.51 10^6/uL (3.85-5.65); Red Cell Distribution Width 13.2 % (12.1-15.1); White Blood Count 9.38 10^3/uL (3.29-11.43)
[2024-07-03] MEDS: piperacillin-tazobactam 3.375 GM in sodium chloride 0.9% (plus) 50 ML IV (18:09)
[2024-07-03 18:12] LABS: Alanine Aminotransferase 37 U/L (0-41); Albumin Level 3.8 g/dL (3.5-5.2); Alkaline Phosphatase 85 U/L (40-130); Aspartate Amino Transferase 32 U/L (0-40); Blood Urea Nitrogen 15 mg/dL (8-23); Carbon Dioxide 29 mmol/L (22-29); Chloride 99 mmol/L (98-107); Creatinine Clr Calc Pharmacy 100.5079; Globulin 3.2 g/dL (1.3-4.6); Glomerular Filtration Rate 164.9 mL/min (90-130); Glucose 96 mg/dL (65-115); Lactic Sepsis W/Reflex 0.8 mmol/L (0.5-2.2); Osmolality Calculated 281 mOsm/kg (285-295); Sodium 135 mmol/L (136-145); Total Bilirubin 0.8 mg/dL (0.15-1.2)
[2024-07-03 18:17] LABS: Anion Gap 11.1 (5-19); Potassium 4.1 mmol/L (3.5-5.1)
[2024-07-03] MEDS: VANCOMYCIN ADD-Vantage 1,000 MG in 0.9% NaCl ADD-Vantage 250 ML 250 MG IV (18:44)
--- NOTE | 2024-07-03 18:54 | W.ED.EXTPRO ---
HPI - Extremity Problem General: Chief complaint: Extremity Problem,Nontraumatic Stated complaint: pain and swelling in rt leg Time Seen by Provider: 07/03/24 16:17 History of Present Illness: This patient is a 69-year-old white male who presents to the emergency department with swelling of the right lower leg, erythema and fever. Symptoms started 2 days ago. Patient has had cellulitis in this leg before. Related Data Home Medications ?Medication ?Instructions ?Recorded ?Confirmed meclizine 12.5 mg tablet 12.5 mg PO DAILY PRN Dizziness Or 09/14/20 04/14/24 Vertigo cholecalciferol (vitamin D3) 25 25 mcg PO BEDTIME 02/12/21 04/14/24 mcg (1,000 unit) capsule acetaminophen 500 mg tablet 500 mg PO QPM 09/03/22 04/14/24 pyridoxine (vitamin B6) 100 mg 50 mg PO DAILY 09/25/22 04/14/24 tablet (Vitamin B-6) vitamin B12 0.5 mg-folic acid 1 mg 1 tab PO DAILY 09/25/22 04/14/24 tablet ezetimibe 10 mg tablet 10 mg PO DAILY 03/29/24 04/14/24 hydrocodone 10 mg-acetaminophen 1 tab PO Q4-5H PRN Pain, Moderate 03/29/24 04/14/24 325 mg tablet omega 5-iwc-ilx-fish oil 1,000 mg 1 cap PO BID 04/14/24 04/14/24 (120 mg-180 mg) capsule (Fish Oil) Previous Rx's ?Medication ?Instructions ?Recorded glucometer testing kit: strips #1 ea 07/20/19 #100 refill:3 , lancets#100 refills:#100 ASV Bipap adjustment #1 ea 09/20/21 ondansetron 4 mg disintegrating 4 mg PO Q8H PRN nausea and 09/05/22 tablet vomiting #7 tabs tamsulosin 0.4 mg capsule 0.4 mg PO DAILY #90 caps 12/08/23 furosemide 20 mg tablet 20 mg PO DAILY #100 tabs 02/22/24 albuterol sulfate 90 mcg/actuation 2 puff inhalation Q6H PRN 03/17/24 aerosol inhaler shortness of breath or wheezing #8.5 grams budesonide-formoterol HFA 80 2 puff inhalation BID #10.2 grams 03/17/24 mcg-4.5 mcg/actuation aerosol inhaler (Symbicort) diphenhydramine HCl 25 mg capsule 50 mg (2 x 25 mg) PO DIRECTED 03/17/24 (Benadryl) allergy symptoms #2 caps isosorbide mononitrate 60 mg 60 mg PO BID #200 tabs 04/14/24 tablet,extended release 24 hr nitroglycerin 0.4 mg sublingual See Rx Instructions .Route 04/14/24 tablet .COMPLEX #25 tabs ranolazine 500 mg tablet,extended 500 mg PO BEDTIME #90 tabs 04/14/24 release,12 hr digoxin 250 mcg (0.25 mg) tablet See Rx Instructions .Route 04/22/24 .COMPLEX #100 tabs potassium chloride 10 mEq 10 meq PO DAILY #100 tabs 05/24/24 tablet,extended release montelukast 10 mg tablet 10 mg PO DAILY #30 tabs 06/02/24 (Singulair) metoprolol tartrate 50 mg tablet See Rx Instructions .Route 06/19/24 .COMPLEX #270 tabs cephalexin 500 mg capsule 500 mg PO QID 10 days #40 caps 07/03/24 sulfamethoxazole 800 1 tab PO BID 10 days #20 tabs 07/03/24 mg-trimethoprim 160 mg tablet (Bactrim DS) Allergies Allergy/AdvReac Type Severity Reaction Status Date / Time shellfish derived Allergy Mild ADR-Vomitin Verified 04/14/24 13:52 g erythromycin base Allergy Unknown Verified 04/14/24 13:52 garlic Allergy Unknown Verified 04/14/24 13:52 Iodinated Contrast Media Allergy SWELLING Verified 04/14/24 13:52 lisinopril Allergy Unknown Verified 04/14/24 13:52 simvastatin Allergy Unknown Verified 04/14/24 13:52 Review of Systems General: Reports: 10 or more systems reviewed and unremarkable except in HPI and below Skin/Breast: Reports: erythema PFSH ED PFSH: Medical History (Updated 07/03/24 @ 18:51 by Jb Marcano MD) Morbid obesity Obstructive sleep apnea treated with BiPAP History of multiple cerebrovascular accidents (CVAs) Includes a hemorrhagic stroke with residual hemiparesis and a cerebral infarct in the left hemisphere History of hemorrhagic stroke with residual hemiparesis Cerebral infarction, left hemisphere Lumbar and sacral osteoarthritis Dyslipidemia (high LDL; low HDL) S/P extracorporeal shock wave therapy Erectile dysfunction Urolithiasis BPH with obstruction/lower urinary tract symptoms HTN (hypertension) with goal to be determined Opioid contract exists [facility], Dr. Abel Spinal stenosis, lumbar region with neurogenic claudication chronic LBP & Left Hip pain Atrial fibrillation Surgical History (Updated 04/14/24 @ 15:24 by Onofre Willis MD) Hx of CABG History of angioplasty Stented coronary artery S/P CABG x 3 Status post endovenous radiofrequency ablation of saphenous vein Family History Father , at age 68 Emphysema lung Mother , at age 49 Heart disease Other CAD (coronary artery disease) Hypertension Lung disease Social History Smoking and tobacco/nicotine status: never used tobacco/nicotine Second hand smoke exposure: No Alcohol intake: never Substance/Drug Use: never Adopted: No Caregiver/support person: No Lives independently: No Household members: spouse Marital status: Current occupational status: retired Current gender identity: Male Physical Exam Const: COMMON NORMALS: no acute distress, patient oriented x3 and no limitations GENERAL APPEARANCE: cooperative and comfortable HENMT: COMMON NORMALS: normocephalic, atraumatic, Normal nasal mucous membranes and turbinates present, moist oral mucous membranes and oropharynx normal HEAD & SCALP: normal to inspection, normocephalic and atraumatic FACE & SINUS: normal facial exam NOSE: Normal nasal mucous membranes and turbinates present Eye: COMMON NORMALS: Equal, round and reactive pupils present, EOMs intact bilaterally and conjunctivae normal GENERAL EYE: appearance normal, both eyes and all related structures CONJUNCTIVA: Yes conjunctivae normal PUPIL: Yes Equal, round and reactive pupils present Neck/C-Spine: COMMON NORMALS: supple and no JVD Chest: COMMONS NORMALS: normal inspection of the chest Resp: COMMON NORMALS: normal respiratory effort and clear to auscultation bilaterally AUSCULTATION: clear to auscultation bilaterally Cardio: COMMON NORMALS: no JVD, regular rate, regular rhythm, No gallops present (Cardio), No murmurs present (Cardio) and No rub (Cardio) RATE: regular rate RHYTHM: regular rhythm GI: COMMON NORMALS: Normal to inspection, nondistended, normoactive bowel sounds present, Soft to palpation and non-tender AUSCULTATION: Yes normoactive bowel sounds PALPATION: Yes Soft to palpation : COMMON NORMALS: Yes no CVA tenderness BLADDER/KIDNEY EXAM: Yes no CVA tenderness Back/Pelvis: COMMON NORMALS: no CVA tenderness and thoracic and lumbar spine normal to inspection Extremity: COMMON NORMALS: normal to inspection Neuro: COMMON NORMALS: patient oriented x3 and CN's II-XII intact bilaterally Psych: COMMON NORMALS: mental status grossly normal, Normal thought process present and cooperative THOUGHT PROCESS: Normal thought process present Skin: COMMON NORMALS: no rashes or lesions noted, turgor normal and no jaundice NARRATIVE SKIN EXAM: Erythema overlying the right talley. Moderate edema of the right lower extremity. Weeping of the skin. GENERAL SKIN EXAM: no rashes or lesions noted and turgor normal Course Vital Signs: Vital signs: Vital Signs Temperature 97.8 F 07/03/24 14:40 Pulse Rate 75 07/03/24 14:40 Respiratory Rate 16 07/03/24 14:40 Blood Pressure 129/62 07/03/24 18:34 Pulse Oximetry 95 07/03/24 18:34 Oxygen Delivery Me thod Room Air 07/03/24 14:40 MDM - Extremity (Nontraumatic) Medical Decision Making CBC, CMP normal. Lactic acid 0.8. Patient was given Zosyn and vancomycin in the emergency department. His vital signs are normal. Laboratory workup came back normal. I think it would be reasonable to try oral antibiotics at home. I did place him on Keflex and Bactrim. I recommended close follow-up with his primary care provider in 3 to 5 days. If condition worsens return to the emergency department. He was discharged home in stable condition with his . Lab Data 07/03/24 17:45 07/03/24 17:45 Laboratory Results WBC 9.38 10^3/uL (3.29-11.43) 07/03/24 17:45 RBC 4.51 10^6/uL (3.85-5.65) 07/03/24 17:45 Hgb 14.10 g/dL (11.27-16.99) 07/03/24 17:45 Hct 43.6 % (37-53) 07/03/24 17:45 MCV 96.7 fl (82-101) 07/03/24 17:45 MCH 31.3 pg (27-33) 07/03/24 17:45 MCHC 32.3 g/dL (30-55) 07/03/24 17:45 RDW 13.2 % (12.1-15.1) 07/03/24 17:45 Plt Count 223 10^3/cmm (157-399) 07/03/24 17:45 MPV 9.6 fL (7.4-10.4) 07/03/24 17:45 Neut % (Auto) 72.6 % 07/03/24 17:45 Lymph % (Auto) 17.6 % 07/03/24 17:45 Mills % (Auto) 8.1 % 07/03/24 17:45 Eos % (Auto) 1.0 % 07/03/24 17:45 Baso % (Auto) 0.4 % 07/03/24 17:45 Neut # (Auto) 6.81 10^3/uL (1.8-7.7) 07/03/24 17:45 Lymph # (Auto) 1.7 10^3/uL (0.8-4.8) 07/03/24 17:45 Mills # (Auto) 0.8 10^3/uL (0.2-0.9) 07/03/24 17:45 Eos # (Auto) 0.1 10^3/uL (0.0-0.8) 07/03/24 17:45 Baso # (Auto) 0.0 10^3/uL (0.0-0.1) 07/03/24 17:45 Nucleated RBC % (auto) 0 % 07/03/24 17:45 Nucleated RBCs # 0.0 /100WBC 07/03/24 17:45 Sodium 135 mmol/L (136-145) L 07/03/24 17:45 Potassium 4.1 mmol/L (3.5-5.1) 07/03/24 17:45 Chloride 99 mmol/L (98-107) 07/03/24 17:45 Carbon Dioxide 29 mmol/L (22-29) 07/03/24 17:45 Anion Gap 11.1 (5-19) 07/03/24 17:45 BUN 15 mg/dL (8-23) 07/03/24 17:45 Creatinine 0.5 mg/dL (0.7-1.2) L 07/03/24 17:45 GFR Calculation 164.9 mL/min (90-130) H 07/03/24 17:45 Glucose 96 mg/dL (65-115) 07/03/24 17:45 Calculated Osmolality 281 mOsm/kg (285-295) L 07/03/24 17:45 Lactic Acid 0.8 mmol/L (0.5-2.2) 07/03/24 17:45 Calcium 9.0 mg/dL (8.5-10.5) 07/03/24 17:45 Total Bilirubin 0.8 mg/dL (0.15-1.2) 07/03/24 17:45 AST 32 U/L (0-40) 07/03/24 17:45 ALT 37 U/L (0-41) 07/03/24 17:45 Alkaline Phosphatase 85 U/L (40-130) 07/03/24 17:45 Total Protein 7.0 g/dL (6.6-8.7) 07/03/24 17:45 Albumin 3.8 g/dL (3.5-5.2) 07/03/24 17:45 Globulin 3.2 g/dL (1.3-4.6) 07/03/24 17:45 No radiology studies performed this visit Discharge Plan Discharge Patient Disposition: Home Clinical Impression: Cellulitis Qualifiers: Site of cellulitis: extremity Site of cellulitis of extremity: lower extremity Laterality: right Qualified Code(s): L03.115 - Cellulitis of right lower limb Condition: Stable Prescriptions: New cephalexin 500 mg capsule 500 mg PO QID 10 Days Qty: 40 0RF sulfamethoxazole-trimethoprim [Bactrim DS] 800-160 mg tablet 1 tab PO BID 10 Days Qty: 20 0RF No Action (DME) glucometer testing kit: strips #100 refill:3 , lancets#100 refills:#100 Qty: 1 0RF Rx Instructions: glucometer testing kit: strips #100 refill:3 , lancets#100 refills:#100 meclizine 12.5 mg tablet 12.5 mg PO DAILY PRN (Reason: Dizziness Or Vertigo) cholecalciferol (vitamin D3) 25 mcg (1,000 unit) capsule 25 mcg PO BEDTIME omega 4-hyc-uze-fish oil [Fish Oil] 1,000 (120-180) mg capsule 1 cap PO BID isosorbide mononitrate 60 mg tablet extended release 24 hr 60 mg PO BID Qty: 200 3RF nitroglycerin 0.4 mg tablet, sublingual See Rx Instructions .ROUTE .COMPLEX Qty: 25 3RF Dose Instruction: DISSOLVE 1 TABLET UNDER THE TONGUE EVERY 5 MINUTES NEEDED FOR CHEST PAIN. DO NOT EXCEED A TOTAL OF 3 DOSES IN 15 MINUTES. Rx Instructions: DISSOLVE 1 TABLET UNDER THE TONGUE EVERY 5 MINUTES NEEDED FOR CHEST PAIN. DO NOT EXCEED A TOTAL OF 3 DOSES IN 15 MINUTES. ranolazine 500 mg tablet extended release 12 hr 500 mg PO BEDTIME Qty: 90 3RF albuterol sulfate 90 mcg/actuation HFA aerosol inhaler 2 puff inhalation Q6H PRN (Reason: shortness of breath or wheezing) Qty: 8.5 0RF budesonide-formoterol [Symbicort] 80-4.5 mcg/actuation HFA aerosol inhaler 2 puff inhalation BID Qty: 10.2 0RF diphenhydramine HCl [Benadryl] 25 mg capsule 50 mg PO DIRECTED Qty: 2 0RF Rx Instructions: Take 50mg (2tabs) 1hr prior to procedure. acetaminophen 500 mg tablet 500 mg PO QPM (DME) ASV Bipap adjustment See Rx Instructions .Route .MEDSUPPLY Qty: 1 0RF Rx Instructions: Back up rate 8-4 ondansetron 4 mg tablet,disintegrating 4 mg PO Q8H PRN (Reason: nausea and vomiting) Qty: 7 0RF tamsulosin 0.4 mg capsule 0.4 mg PO DAILY Qty: 90 3RF furosemide 20 mg tablet 20 mg PO DAILY Qty: 100 1RF digoxin 250 mcg (0.25 mg) tablet See Rx Instructions .ROUTE .COMPLEX Qty: 100 3RF Dose Instruction: TAKE 1 TABLET BY MOUTH DAILY AT 8AM Rx Instructions: TAKE 1 TABLET BY MOUTH DAILY AT 8AM potassium chloride 10 mEq tablet extended release 10 meq PO DAILY Qty: 100 3RF montelukast [Singulair] 10 mg tablet 10 mg PO DAILY Qty: 30 0RF Rx Instructions: Further refill request will need to go to primary care. metoprolol tartrate 50 mg tablet See Rx Instructions .ROUTE .COMPLEX Qty: 270 3RF Dose Instruction: TAKE 1 AND 1/2 TABLETS BY MOUTH TWICE DAILY AT 8AM AND 8PM Rx Instructions: TAKE 1 AND 1/2 TABLETS BY MOUTH TWICE DAILY AT 8AM AND 8PM hydrocodone-acetaminophen 10-325 mg tablet 1 tab PO Q4-5H PRN (Reason: Pain, Moderate) ezetimibe 10 mg tablet 10 mg PO DAILY pyridoxine (vitamin B6) [Vitamin B-6] 100 mg Tablet 50 mg PO DAILY vitamin [id number] acid 0.5-1 mg Tablet 1 tab PO DAILY Discharge Orders: Discharge ED (Routine); Ordered 07/03/24 Ordered By: Jb Marcano Referrals: David Villela MD [Primary Care Provider] - Patient Instructions: Cellulitis Activity Restrictions/Additional Instructions: Follow-up with your primary care provider in 3 to 5 days for recheck. If condition worsens return to the emergency department. Print Language: Bangladeshi Coding Level of Care Code ED Vice President Compliance for Kamila Dubon
== END 2024-07-03 19:59 | disposition home or self-care (01) ==
PROVIDERS: Emergency Provider Emergency Medicine; PCP Family Medicine Adult Medicine
DX: L03.115 Cellulitis of right lower limb (principal); Z95.1 Presence of aortocoronary bypass graft; I10 Essential (primary) hypertension; E78.5 Hyperlipidemia, unspecified
CPT/HCPCS: 80053; 83605; 85025; 87040; 96365; 96367; 99284; J2543; J3370; J7050

== ENCOUNTER 2024-09-12 15:45 | Outpatient (CLI) | payer MEDICARE, SELFPAY ==
[2024-09-12 16:41] LABS: Digoxin 1.1 ng/mL (0.6-1.2)
[2024-09-12 18:44] LABS: Vitamin B12 > 2000 pg/mL (232-1245)
== END 2024-09-12 15:46 | disposition home or self-care (01) ==
PROVIDERS: PCP Family Medicine; Visit Provider Family Medicine
DX: I48.11 Longstanding persistent atrial fibrillation (principal); R53.83 Other fatigue; Z79.899 Other long term (current) drug therapy
CPT/HCPCS: 36415; 80162; 82607

== ENCOUNTER → 2024-09-21 15:12 | Outpatient (BNVA) | payer MEDICARE, SELFPAY | PROVIDERS: PCP Family Medicine; Visit Provider Podiatrist Foot & Ankle Surgery | DX: L60.3 Nail dystrophy (principal); I73.9 Peripheral vascular disease, unspecified | CPT/HCPCS: 11721 ==

== ENCOUNTER 2024-09-23 18:57 | Emergency (ER) | payer MEDICARE, SELFPAY ==
[2024-09-23 19:00] VITALS: BP 123/70; PULSE 79; RESP 16; TEMP 36.7; O2SAT 97; BMI 27.6
--- NOTE | 2024-09-23 19:05 | ECG_ITS ---
[facility] Date: 2024-09-23 Pat Name: En Worrell Department: Room: Gender: Male Director Of Hospitality: : 1955 Requested By: Bernabe Anderson Order Number: [id number] Bob MD: Abdullahi Vickers M.D. Measurements Intervals [place] Rate: 68 P: 0 IA: 0 QRS: -8 QRSD: 122 T: 51 QT: 402 QTc: 428 Interpretive Statements ATRIAL FIBRILLATION MODERATE INTRAVENTRICULAR CONDUCTION DELAY [105+ ms QRS DURATION, 80+ ms Q/S IN V1/V2, NO Q AND 60+ ms R IN I/aVL/V5/V6] NONSPECIFIC ST & T-WAVE ABNORMALITY Compared to ECG 09/23/2024 22:14:16 No significant changes Electronically Signed On 09-27-2024 11:44:15 CDT by Abdullahi Vickers M.D. [email or web address]
--- NOTE | 2024-09-23 19:39 | CTR_ITS ---
PROCEDURE INFORMATION: Exam: CT Head Without Contrast Exam date and time: 09/23/2024 7:50 PM Age: 69 years old Clinical indication: Altered mental status/memory loss; Confusion or disorientation; C/O confusion. History of CVA. ; Additional info: Reported confusion with HX of hemorhagic CVA TECHNIQUE: Imaging protocol: Computed tomography of the head without contrast. Radiation optimization: All CT scans at this facility use at least one of these dose optimization techniques: automated exposure control; mA and/or kV adjustment per patient size (includes targeted exams where dose is matched to clinical indication); or iterative reconstruction. COMPARISON: CT head wo con* [id number] 03/10/2024 5:36 PM RADIATION DOSE METRICS: Total DLP (mGy-cm): 1180.38 FINDINGS: Brain: No acute intracranial hemorrhage. No acute territorial region of chris-white dedifferentiation. No extra-axial collection. No mass effect or midline shift. Moderate-severe burden of nonspecific white matter hypoattenuation, most commonly sequela of chronic microvascular ischemic change. Generalized parenchymal volume loss. Old left parietal infarct. Multiple chronic appearing bilateral basal ganglia and thalamic lacunar infarcts. Old small infarct in the right medial cerebellum. Cerebral ventricles: No acute hydrocephalus. Paranasal sinuses: Visualized sinuses are well-aerated. No fluid levels. Mastoid air cells: Visualized mastoid air cells are well aerated. Orbital cavities: No acute abnormality of the visualized orbits. Bones: No acute calvarial fracture. Soft tissues: No acute abnormality. CT/CT head wo con* [id number] IMPRESSION: No acute intracranial hemorrhage or CT evidence of acute territorial infarct. If there is high clinical suspicion for acute ischemia, recommend MRI for more sensitive evaluation.
--- NOTE | 2024-09-23 19:39 | XRR_ITS ---
PROCEDURE INFORMATION: Exam: XR Chest Exam date and time: 09/23/2024 7:53 PM Age: 69 years old Clinical indication: Shortness of breath; Prior surgery; Surgery date: 6+ months; Surgery type: Cabg; C/O SOB. TECHNIQUE: Imaging protocol: Radiologic exam of the chest. Views: 2 views. COMPARISON: CR XR chest 1V portable [id number] 03/10/2024 5:00 PM FINDINGS: Lungs: No consolidation. Pleural spaces: No pleural effusion. No pneumothorax. Heart/Mediastinum: Surgical changes of CABG. Stable cardiomegaly. Bones/joints: No acute abnormality. XR/XR chest 2V* [id number] IMPRESSION: No radiographic evidence of acute pulmonary process.
--- NOTE | 2024-09-23 19:42 | W.ED.SOB ---
HPI - SOB/Dyspnea General: Chief Complaint: Shortness of Breath/Dyspnea Stated Complaint: SOB confused cant think Time Seen by Provider: 09/23/24 19:17 History of Present Illness: HPI Narrative: 79-year-old male with presents to the ER with multiple symptoms per family present patient apparently has had some increased shortness of breath over the last couple of days patient does have a longstanding history of congestive heart failure open heart bypass as well as on amiodarone for atrial fibrillation apparently the patient has chronic edema and swelling in his legs per the the patient has had increased confusion in which she has been urinating himself and being more incontinent as patient has been on a higher dose of his of his water pill. Patient denies any chest pain or palpitations. Patient per the has been more confused and normal he does have a known history of previous hemorrhagic stroke. Patient presents to the ER with present for further for further assessment and management. Patient does endorse generalized weakness and fatigue with no other associated symptoms, per the patient's patient has had a prior history of kidney stones as well as history of renal impairment as well as urinary tract infections. Associated symptoms: Deny abdominal pain, chest pain, extremity pain, fever(s), nausea, palpitations or vomiting Related Data Home Medications ?Medication ?Instructions ?Recorded ?Confirmed meclizine 12.5 mg tablet 12.5 mg PO DAILY PRN Dizziness Or 09/14/20 09/21/24 Vertigo cholecalciferol (vitamin D3) 25 25 mcg PO BEDTIME 02/12/21 09/21/24 mcg (1,000 unit) capsule acetaminophen 500 mg tablet 500 mg PO QPM 09/03/22 09/21/24 pyridoxine (vitamin B6) 100 mg 50 mg PO DAILY 09/25/22 09/21/24 tablet (Vitamin B-6) vitamin B12 0.5 mg-folic acid 1 mg 1 tab PO DAILY 09/25/22 09/21/24 tablet hydrocodone 10 mg-acetaminophen 1 tab PO Q4-5H PRN Pain, Moderate 03/29/24 09/21/24 325 mg tablet omega 9-hiq-rhh-fish oil 1,000 mg 1 cap PO BID 04/14/24 09/21/24 (120 mg-180 mg) capsule (Fish Oil) Previous Rx's ?Medication ?Instructions ?Recorded glucometer testing kit: strips #1 ea 07/20/19 #100 refill:3 , lancets#100 refills:#100 ASV Bipap adjustment #1 ea 09/20/21 ondansetron 4 mg disintegrating 4 mg PO Q8H PRN nausea and 09/05/22 tablet vomiting #7 tabs albuterol sulfate 90 mcg/actuation 2 puff inhalation Q6H PRN 03/17/24 aerosol inhaler shortness of breath or wheezing #8.5 grams diphenhydramine HCl 25 mg capsule 50 mg (2 x 25 mg) PO DIRECTED 03/17/24 (Benadryl) allergy symptoms #2 caps isosorbide mononitrate 60 mg 60 mg PO BID #200 tabs 04/14/24 tablet,extended release 24 hr ranolazine 500 mg tablet,extended 500 mg PO BEDTIME #90 tabs 04/14/24 release,12 hr digoxin 250 mcg (0.25 mg) tablet See Rx Instructions .Route 04/22/24 .COMPLEX #100 tabs potassium chloride 10 mEq 10 meq PO DAILY #100 tabs 05/24/24 tablet,extended release metoprolol tartrate 50 mg tablet See Rx Instructions .Route 06/19/24 .COMPLEX #270 tabs ezetimibe 10 mg tablet See Rx Instructions .Route 08/02/24 .COMPLEX #100 tabs furosemide 20 mg tablet 20 mg PO DAILY #100 tabs 08/09/24 montelukast 10 mg tablet 10 mg PO DAILY #90 tabs 08/09/24 (Singulair) tamsulosin 0.4 mg capsule 0.4 mg PO DAILY #90 caps 08/09/24 walker rollaid with seat #1 ea 08/09/24 lidocaine HCl 2 % mucosal solution 1 applic mucous membrane BID PRN 08/17/24 (Lidocaine Viscous) pain #100 mL nitroglycerin 0.4 mg sublingual See Rx Instructions .Route 08/18/24 tablet .COMPLEX #25 tabs ciclopirox 8 % topical solution 1 applic topical DAILY 4 weeks 09/21/24 (Ciclodan) #6.6 mL Allergies Allergy/AdvReac Type Severity Reaction Status Date / Time shellfish derived Allergy Mild ADR-Vomitin Verified 09/21/24 15:14 g erythromycin base Allergy Unknown Verified 09/21/24 15:14 garlic Allergy Unknown Verified 09/21/24 15:14 Iodinated Contrast Media Allergy SWELLING Verified 09/21/24 15:14 lisinopril Allergy Unknown Verified 09/21/24 15:14 simvastatin Allergy Unknown Verified 09/21/24 15:14 Review of Systems General: Reports: 10 or more systems reviewed and unremarkable except in HPI and below Const: Reports: fatigue and malaise; Denies: fever(s) or chills Eyes: Denies: change in vision or blurry vision Card: Denies: chest pain or palpitations Resp: Reports: dyspnea; Denies: productive cough GI: Denies: abdominal pain, nausea or vomiting : Denies: flank pain Musc: Denies: extremity pain or extremity swelling Skin/Breast: Denies: rash or pruritus Neuro: Denies: headache(s) Psych: Denies: anxiety or depression Henry/Lymph: Denies: easy bleeding All/Imm: Denies: urticaria, throat swelling or facial swelling PFSH ED PFSH: Medical History Fatigue High risk medication use Statin intolerance per chart allergic to simvastatin Restrictive lung disease PFTS 8.23: FEV1 69%; FEV1/FVC normal; RV normal; TLC--reduced; DLCO normal; MODERATE RESTRICTIVE LUNG DISEASE; NO BRONCHODILATOR RESPONSE CAD (coronary artery disease), [place] coronary artery Morbid obesity Obstructive sleep apnea treated with BiPAP currently not using; machine recalled History of multiple cerebrovascular accidents (CVAs) Includes a hemorrhagic stroke with residual hemiparesis and a cerebral infarct in the left hemisphere History of hemorrhagic stroke with residual hemiparesis Cerebral infarction, left hemisphere Lumbar and sacral osteoarthritis Dyslipidemia (high LDL; low HDL) Erectile dysfunction Urolithiasis BPH with obstruction/lower urinary tract symptoms HTN (hypertension) with goal to be determined Opioid contract exists [facility], Dr. Abel Spinal stenosis, lumbar region with neurogenic claudication chronic LBP & Left Hip pain Atrial fibrillation cannot take anticoagulation--had brain bleed while on anticoagulation Surgical History Hx of cardiac cath 03.29.24--patent grafts; but severe [place] CAD--complete LAD occlusion S/P extracorporeal shock wave therapy Stented coronary artery S/P CABG x 3 Status post endovenous radiofrequency ablation of saphenous vein R leg Family History Father , at age 68 Emphysema lung Mother , at age 49 Heart disease Other CAD (coronary artery disease) Hypertension Lung disease Social History Smoking and tobacco/nicotine status: never used tobacco/nicotine Second hand smoke exposure: No Alcohol intake: never Substance/Drug Use: never Adopted: No Caregiver/support person: No Lives independently: No Household members: spouse Marital status: Number of children: 0 Highest education level completed: Some College, No Degree Current occupational status: retired 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 Current gender identity: Male Physical Exam Const: COMMON NORMALS: no acute distress, patient oriented x3 and healthy appearing HENMT: COMMON NORMALS: normocephalic and atraumatic HEAD & SCALP: normocephalic and atraumatic Eye: COMMON NORMALS: Equal, round and reactive pupils present and EOMs intact bilaterally PUPIL: Yes Equal, round and reactive pupils present Neck/C-Spine: COMMON NORMALS: full ROM, supple and no JVD Lymph: LYMPHATIC: no lymphadenopathy noted Chest: COMMONS NORMALS: normal inspection of the chest and normal palpation of entire chest wall Resp: COMMON NORMALS: normal respiratory effort, No retractions and clear to auscultation bilaterally EFFORT & INSPECTION: Yes able to speak in complete sentences and Yes symmetric chest movement AUSCULTATION: clear to auscultation bilaterally Cardio: COMMON NORMALS: no JVD, regular rate and regular rhythm RATE: regular rate RHYTHM: regular rhythm GI: COMMON NORMALS: Normal to inspection, nondistended, normoactive bowel sounds present, Soft to palpation and non-tender INSPECTION: Yes normal to inspection PALPATION: Yes Soft to palpation : COMMON NORMALS: Yes no CVA tenderness BLADDER/KIDNEY EXAM: Yes no CVA tenderness Back/Pelvis: COMMON NORMALS: no CVA tenderness Extremity: COMMON NORMALS: normal to inspection and full ROM; negative for no pedal edema (Bilateral 2+ pedal edema present with stasis dermatitis appreciated to the ) Neuro: COMMON NORMALS: patient oriented x3, CN's II-XII intact bilaterally, moves all extremities and no focal motor deficits Psych: COMMON NORMALS: mental status grossly normal, Normal thought process present, cooperative and normal affect THOUGHT PROCESS: Normal thought process present Skin: COMMON NORMALS: no rashes or lesions noted GENERAL SKIN EXAM: no rashes or lesions noted Course Vital Signs: Vital signs: Vital Signs Temperature 98.0 F 09/23/24 19:00 Pulse Rate 73 09/23/24 20:33 Respiratory Rate 16 09/23/24 20:33 Blood Pressure 141/67 09/23/24 20:33 Pulse Oximetry 94 09/23/24 20:33 Oxygen Delivery Me thod Room Air 09/23/24 20:33 MDM - SOB/Dyspnea Medical Decision Making Due to patient's symptoms and condition IV established basic cardiac and neurowork-up will be obtained will continue to follow on exam patient has no other obvious focal neurodeficits consistent with a stroke however per the he does appear to be slightly slow to answer questioning. Will continue to follow Patient's lab work and imaging is all come back reassuring patient has been found have chronically elevated troponins I did notify the patient and his know this is the first troponin was found to be at 28 with the second 25.33 which is somewhat elevated, the patient endorses this is chronic in which he is not having any current chest pain or discomfort. Patient is requesting to be discharged home. 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 At this time patient stable for discharge home did advise further follow-up as previously indicated and was to return in the interim if any of his symptoms persist or worse. Lab Data 09/23/24 20:11 09/23/24 20:11 Labs/Radiology: Radiology Impressions Chest X-Ray 09/23/24 19:39 IMPRESSION: No radiographic evidence of acute pulmonary process. Head CT 09/23/24 19:39 IMPRESSION: No acute intracranial hemorrhage or CT evidence of acute territorial infarct. If there is high clinical suspicion for acute ischemia, recommend MRI for more sensitive evaluation. Laboratory Results WBC 7.51 10^3/uL (3.29-11.43) 09/23/24 20:11 RBC 4.56 10^6/uL (3.85-5.65) 09/23/24 20:11 Hgb 14.40 g/dL (11.27-16.99) 09/23/24 20:11 Hct 43.9 % (37-53) 09/23/24 20:11 MCV 96.3 fl (82-101) 09/23/24 20:11 MCH 31.6 pg (27-33) 09/23/24 20:11 MCHC 32.8 g/dL (30-55) 09/23/24 20:11 RDW 13.3 % (12.1-15.1) 09/23/24 20:11 Plt Count 230 10^3/cmm (157-399) 09/23/24 20:11 MPV 9.3 fL (7.4-10.4) 09/23/24 20:11 Neut % (Auto) 64.7 % 09/23/24 20:11 Lymph % (Auto) 25.4 % 09/23/24 20:11 [place] % (Auto) 7.9 % 09/23/24 20:11 Eos % (Auto) 1.1 % 09/23/24 20:11 Baso % (Auto) 0.8 % 09/23/24 20:11 Neut # (Auto) 4.86 10^3/uL (1.8-7.7) 09/23/24 20:11 Lymph # (Auto) 1.9 10^3/uL (0.8-4.8) 09/23/24 20:11 [place] # (Auto) 0.6 10^3/uL (0.2-0.9) 09/23/24 20:11 Eos # (Auto) 0.1 10^3/uL (0.0-0.8) 09/23/24 20:11 Baso # (Auto) 0.1 10^3/uL (0.0-0.1) 09/23/24 20:11 Nucleated RBC % (auto) 0 % 09/23/24 20:11 Nucleated RBCs # 0.0 /100WBC 09/23/24 20:11 Sodium 143 mmol/L (136-145) 09/23/24 20:11 Potassium 4.2 mmol/L (3.5-5.1) 09/23/24 20:11 Chloride 105 mmol/L (98-107) 09/23/24 20:11 Carbon Dioxide 27 mmol/L (22-29) 09/23/24 20:11 Anion Gap 15.2 (5-19) 09/23/24 20:11 BUN 27 mg/dL (8-23) H 09/23/24 20:11 Creatinine 0.5 mg/dL (0.7-1.2) L 09/23/24 20:11 GFR Calculation 164.9 mL/min (90-130) H 09/23/24 20:11 Glucose 97 mg/dL (65-115) 09/23/24 20:11 Calculated Osmolality 301 mOsm/kg (285-295) H 09/23/24 20:11 Lactic Acid 1.0 mmol/L (0.5-2.2) 09/23/24 20:11 Calcium 9.2 mg/dL (8.5-10.5) 09/23/24 20:11 Total Bilirubin 0.5 mg/dL (0.15-1.2) 09/23/24 20:11 AST 27 U/L (0-40) 09/23/24 20:11 ALT 41 U/L (0-41) 09/23/24 20:11 Alkaline Phosphatase 111 U/L (40-130) 09/23/24 20:11 Troponin T Baseline 28 ng/L (0-15) H 09/23/24 20:11 Troponin T 120 Minute 25.33 ng/L (0-15) H 09/23/24 22:13 Delta Troponin T -2.67 ABS# (0-10) L 09/23/24 22:13 C-Reactive Protein 3.0 mg/L (0.0-4.9) 09/23/24 20:11 NT-Pro-B Natriuret Pep 829 pg/mL (0-125) H 09/23/24 20:11 Total Protein 6.8 g/dL (6.6-8.7) 09/23/24 20:11 Albumin 4.2 g/dL (3.5-5.2) 09/23/24 20:11 Globulin 2.6 g/dL (1.3-4.6) 09/23/24 20:11 Urine Color Yellow (Yellow) 09/23/24 21:12 Urine Appearance Clear (CLEAR) 09/23/24 21:12 Urine pH 6.5 (5-7) 09/23/24 21:12 Ur Specific [place] 1.021 (1.005-1.030) 09/23/24 21:12 Urine Protein Negative (Negative) 09/23/24 21:12 Urine Glucose (UA) Negative (Normal) 09/23/24 21:12 Urine Ketones Negative (Negative) 09/23/24 21:12 Urine Blood Negative (Negative) 09/23/24 21:12 Urine Nitrate Negative (Negative) 09/23/24 21:12 Urine Bilirubin Negative (Negative) 09/23/24 21:12 Urine Urobilinogen 1.0 mg/dL (Negative) 09/23/24 21:12 Ur Leukocyte Esterase Negative (Negative) 09/23/24 21:12 Urine RBC 0-2 /hpf (0-2) 09/23/24 21:12 Urine WBC 0-5 /hpf (0-5) 09/23/24 21:12 Ur Squamous Epith Cells 0-5 /hpf (0-5) 09/23/24 21:12 Amorphous Sediment Not Reportable 09/23/24 21:12 Urine Bacteria None seen /hpf (NONE) 09/23/24 21:12 Hyaline Casts 0-4 /lpf H 09/23/24 21:12 All radiology interpretation(s) finalized by discharge Discharge Plan Discharge Patient Disposition: Home Clinical Impression: Confusion state, Elevated troponin level Condition: Stable Prescriptions: No Action (DME) glucometer testing kit: strips #100 refill:3 , lancets#100 refills:#100 Qty: 1 0RF Rx Instructions: glucometer testing kit: strips #100 refill:3 , lancets#100 refills:#100 meclizine 12.5 mg tablet 12.5 mg PO DAILY PRN (Reason: Dizziness Or Vertigo) cholecalciferol (vitamin D3) 25 mcg (1,000 unit) capsule 25 mcg PO BEDTIME omega 0-mae-vwd-fish oil [Fish Oil] 1,000 (120-180) mg capsule 1 cap PO BID isosorbide mononitrate 60 mg tablet extended release 24 hr 60 mg PO BID Qty: 200 3RF ranolazine 500 mg tablet extended release 12 hr 500 mg PO BEDTIME Qty: 90 3RF albuterol sulfate 90 mcg/actuation HFA aerosol inhaler 2 puff inhalation Q6H PRN (Reason: shortness of breath or wheezing) Qty: 8.5 0RF diphenhydramine HCl [Benadryl] 25 mg capsule 50 mg PO DIRECTED Qty: 2 0RF Rx Instructions: Take 50mg (2tabs) 1hr prior to procedure. acetaminophen 500 mg tablet 500 mg PO QPM furosemide 20 mg tablet 20 mg PO DAILY Qty: 100 1RF montelukast [Singulair] 10 mg tablet 10 mg PO DAILY Qty: 90 1RF tamsulosin 0.4 mg capsule 0.4 mg PO DAILY Qty: 90 3RF (DME) walker rollaid with seat See Rx Instructions .Route .MEDSUPPLY Qty: 1 0RF Rx Instructions: As directed ciclopirox [Ciclodan] 8 % solution 1 applic topical DAILY 28 Days Qty: 6.6 3RF (DME) ASV Bipap adjustment See Rx Instructions .Route .MEDSUPPLY Qty: 1 0RF Rx Instructions: Back up rate 8-4 ondansetron 4 mg tablet,disintegrating 4 mg PO Q8H PRN (Reason: nausea and vomiting) Qty: 7 0RF digoxin 250 mcg (0.25 mg) tablet See Rx Instructions .ROUTE .COMPLEX Qty: 100 3RF Dose Instruction: TAKE 1 TABLET BY MOUTH DAILY AT 8AM Rx Instructions: TAKE 1 TABLET BY MOUTH DAILY AT 8AM potassium chloride 10 mEq tablet extended release 10 meq PO DAILY Qty: 100 3RF metoprolol tartrate 50 mg tablet See Rx Instructions .ROUTE .COMPLEX Qty: 270 3RF Dose Instruction: TAKE 1 AND 1/2 TABLETS BY MOUTH TWICE DAILY AT 8AM AND 8PM Rx Instructions: TAKE 1 AND 1/2 TABLETS BY MOUTH TWICE DAILY AT 8AM AND 8PM ezetimibe 10 mg tablet See Rx Instructions .ROUTE .COMPLEX Qty: 100 2RF Dose Instruction: TAKE 1 TABLET BY MOUTH DAILY Rx Instructions: TAKE 1 TABLET BY MOUTH DAILY lidocaine HCl [Lidocaine Viscous] 2 % solution 1 applic mucous membrane BID PRN (Reason: pain) Qty: 100 0RF nitroglycerin 0.4 mg tablet, sublingual See Rx Instructions .ROUTE .COMPLEX Qty: 25 3RF Dose Instruction: DISSOLVE 1 TABLET UNDER THE TONGUE EVERY 5 MINUTES NEEDED FOR CHEST PAIN. DO NOT EXCEED A TOTAL OF 3 DOSES IN 15 MINUTES. Rx Instructions: DISSOLVE 1 TABLET UNDER THE TONGUE EVERY 5 MINUTES NEEDED FOR CHEST PAIN. DO NOT EXCEED A TOTAL OF 3 DOSES IN 15 MINUTES. hydrocodone-acetaminophen 10-325 mg tablet 1 tab PO Q4-5H PRN (Reason: Pain, Moderate) pyridoxine (vitamin B6) [Vitamin B-6] 100 mg Tablet 50 mg PO DAILY vitamin F96-[id number] acid 0.5-1 mg Tablet 1 tab PO DAILY Discharge Orders: Discharge ED (Routine); Ordered 09/23/24 Ordered By: Galdino Okeefe Referrals: Seema Garland MD [Primary Care Provider, [facility]] - 4-7 days Discharge Diet: Cardiac Discharge Activity: Increase activity as tolerated Patient Instructions: Confusion, High Troponin Levels (ED) Activity Restrictions/Additional Instructions: Your lab work came back unremarkable except for your chronically elevated troponins you have been notified of this it is recommended further follow-up with cardiology or primary care for further evaluation management if indicated your CAT scan imaging of the brain came back unremarkable please further follow-up as indicated in which to return the interim if any of your symptoms persist or worse. Print Language: Welsh Coding Level of Care Code ED Manager Sales Support for Kamila Dubon
--- NOTE | 2024-09-23 19:45 | PC.NURSE ---
Upon attempting to set up for IV placement, patient stated I would like an ultrasound IV. They never get me, and last time I was here they poked me 5 times before getting the ultrasound. I'm a hard stick. This nurse asked patient if it would be okay to try one IV without ultrasound and patient was agreeable. At time of attempting to secure IV, IV blew. Patient then again requested ultrasound.
[2024-09-23 20:24] LABS: Basophils # 0.1 10^3/uL (0.0-0.1); Basophils % 0.8 %; Eosinophils # 0.1 10^3/uL (0.0-0.8); Eosinophils % 1.1 %; Hematocrit 43.9 % (37-53); Lymphocytes # 1.9 10^3/uL (0.8-4.8); Lymphocytes % 25.4 %; Mean Corpuscular HGB Conc 32.8 g/dL (30-55); Mean Corpuscular Hemoglobin 31.6 pg (27-33); Mean Corpuscular Volume 96.3 fl (82-101); Mean Platelet Volume 9.3 fL (7.4-10.4); Monocytes # 0.6 10^3/uL (0.2-0.9); Monocytes % 7.9 %; Neutrophils # 4.86 10^3/uL (1.8-7.7); Neutrophils % 64.7 %; Nucleated Red Blood Cells % 0 %; Platelet Count 230 10^3/cmm (157-399); Red Blood Count 4.56 10^6/uL (3.85-5.65); Red Cell Distribution Width 13.3 % (12.1-15.1); White Blood Count 7.51 10^3/uL (3.29-11.43)
[2024-09-23 20:33] VITALS: BP 141/67; PULSE 73; RESP 16; O2SAT 94
[2024-09-23 20:42] LABS: Troponin(5th) Baseline 28 ng/L (0-15)
[2024-09-23 20:51] LABS: Alanine Aminotransferase 41 U/L (0-41); Albumin Level 4.2 g/dL (3.5-5.2); Alkaline Phosphatase 111 U/L (40-130); Anion Gap 15.2 (5-19); Aspartate Amino Transferase 27 U/L (0-40); Blood Urea Nitrogen 27 mg/dL (8-23); Calcium 9.2 mg/dL (8.5-10.5); Carbon Dioxide 27 mmol/L (22-29); Chloride 105 mmol/L (98-107); Creatinine Clr Calc Pharmacy 97.1531; Globulin 2.6 g/dL (1.3-4.6); Glomerular Filtration Rate 164.9 mL/min (90-130); Glucose 97 mg/dL (65-115); NT Pro B Type Natriuretic Pept 829 pg/mL (0-125); Osmolality Calculated 301 mOsm/kg (285-295); Potassium 4.2 mmol/L (3.5-5.1); Sodium 143 mmol/L (136-145); Total Bilirubin 0.5 mg/dL (0.15-1.2); Total Protein 6.8 g/dL (6.6-8.7)
[2024-09-23 21:24] LABS: Bilirubin Urine Negative (Negative); Blood Urine Negative (Negative); Glucose Urine UA Negative (Normal); Ketones Urine Negative (Negative); Leukocyte Esterase Urine Negative (Negative); Nitrate Urine Negative (Negative); Protein Urine Negative (Negative); Specific Gravity, Urine 1.021 (1.005-1.030); Urine Appearance Clear (CLEAR); Urine Color Yellow (Yellow); pH Urine 6.5 (5-7)
--- NOTE | 2024-09-23 21:40 | ECG_ITS ---
[employer] 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[id number] Requested By: Galdino Okeefe Order Number: [id number] Reading MD: LOPEZ HORTON Measurements Intervals [place] Rate: 61 P: 0 RI: 0 QRS: -15 QRSD: 113 T: 67 QT: 388 QTc: 391 Interpretive Statements ATRIAL FIBRILLATION MODERATE INTRAVENTRICULAR CONDUCTION DELAY [105+ ms QRS DURATION, 80+ ms Q/S IN V1/V2, NO Q AND 60+ ms R IN I/aVL/V5/V6] NONSPECIFIC ST & T-WAVE ABNORMALITY Compared to ECG 03/10/2024 18:13:32 No significant changes Electronically Signed On 09-28-2024 23:00:48 CDT by LOPEZ HORTON [email or web address]
[2024-09-23 21:54] LABS: Add Urine Microscopic? YES; Bacteria Urine None Seen /hpf; Hyaline Casts Urine 0-4 /lpf; RBC Urine 0-2 /hpf (0-2); Squamous Epithelial Cell Urine 0-5 /hpf (0-5); WBC Urine 0-5 /hpf (0-5)
[2024-09-23 22:00] VITALS: BP 133/68; PULSE 87; RESP 16; O2SAT 95
[2024-09-23 22:46] LABS: Troponin 5 2HR 25.33 ng/L (0-15)
[2024-09-23 23:00] VITALS: BP 138/71; PULSE 63; RESP 16; O2SAT 96
[2024-09-23 23:19] LABS: Troponin 5 2HR Delta -2.67 ABS# (0-10)
[2024-09-24 00:18] VITALS: BP 145/77; PULSE 83; RESP 16; O2SAT 97
== END 2024-09-24 00:20 | disposition home or self-care (01) ==
PROVIDERS: Emergency Provider Emergency Medicine; PCP Family Medicine
DX: R41.0 Disorientation, unspecified (principal); R79.89 Other specified abnormal findings of blood chemistry; I25.10 Atherosclerotic heart disease of native coronary artery without angina pectoris; E78.5 Hyperlipidemia, unspecified; Z95.1 Presence of aortocoronary bypass graft
CPT/HCPCS: 36415; 70450; 71046; 80053; 81001; 83605; 83880; 84484; 85025; 86140; 93005; 99285

== ENCOUNTER → 2024-11-08 14:29 | Outpatient (BNVA) | payer MEDICARE, SELFPAY | PROVIDERS: PCP Family Medicine; Visit Provider Internal Medicine Cardiovascular Disease | DX: I25.10 Atherosclerotic heart disease of native coronary artery without angina pectoris (principal); I48.91 Unspecified atrial fibrillation; I87.2 Venous insufficiency (chronic) (peripheral); Z86.73 Personal history of transient ischemic attack (TIA), and cerebral infarction without residual deficits; I10 Essential (primary) hypertension | CPT/HCPCS: 99214 ==

== ENCOUNTER → 2024-11-28 16:14 | Outpatient (BNVA) | payer MEDICARE, SELFPAY | PROVIDERS: PCP Family Medicine; Visit Provider Registered Nurse Neonatal Intensive Care | DX: M25.532 Pain in left wrist (principal); M25.512 Pain in left shoulder | CPT/HCPCS: 73030; 73110 ==

== ENCOUNTER → 2024-11-29 13:08 | Outpatient (BNVA) | payer MEDICARE, SELFPAY | PROVIDERS: PCP Family Medicine; Visit Provider Podiatrist Foot & Ankle Surgery | DX: I73.9 Peripheral vascular disease, unspecified (principal); L60.3 Nail dystrophy; I87.2 Venous insufficiency (chronic) (peripheral); S80.821A Blister (nonthermal), right lower leg, initial encounter; X58.XXXA Exposure to other specified factors, initial encounter | CPT/HCPCS: 10140; 11721; 99213 ==

== ENCOUNTER 2025-01-09 16:33 | Outpatient (CLI) | payer MEDICARE, SELFPAY ==
[2025-01-09 19:17] LABS: Digoxin 1.0 ng/mL (0.6-1.2)
== END 2025-01-09 16:34 | disposition home or self-care (01) ==
LOC: LAB 16:36
PROVIDERS: Internal Medicine Cardiovascular Disease; PCP Family Medicine; Visit Provider Family Medicine
DX: Z79.899 Other long term (current) drug therapy (principal)
CPT/HCPCS: 36415; 80061; 80162; 86803; G0103

== ENCOUNTER 2025-02-09 16:14 | Emergency (ER) | payer MEDICARE, SELFPAY ==
[2025-02-09 16:24] VITALS: BP 131/71; PULSE 64; RESP 14; TEMP 36.8; O2SAT 97
--- NOTE | 2025-02-09 17:03 | XRR_ITS ---
PROCEDURE INFORMATION: Exam: XR Left Wrist Exam date and time: 02/09/2025 5:20 PM Age: 69 years old Clinical indication: Injury or trauma; Fall; Blunt trauma (contusions or hematomas); Wrist; Left TECHNIQUE: Imaging protocol: Radiologic exam of the left wrist. Views: 3 or more views. Total images: 3 COMPARISON: 1. CR XR wrist LT min 3V* [id number] 11/28/2024 4:17 PM 2. CR XR elbow LT min 3V* [id number] 02/09/2025 5:20 PM FINDINGS: Limitations: No fiducial skin marker was placed at the site of clinical concern. 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 Pathologic widening of the scapholunate interval is compatible with chronic scapholunate ligament disruption and subtle proximal migration of the capitate toward the radius accounting for foreshortening of the wrist. No acute displaced fracture, subluxation or dislocation. Soft tissues: Soft tissues are normal as visualized, demonstrating no masses or induration. No manifestations of laceration, subcutaneous emphysema or retained soft tissue radiopaque foreign body. XR/XR wrist LT min 3V* [id number] IMPRESSION: 1. 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 2. Pathologic widening of the scapholunate interval is compatible with chronic scapholunate ligament disruption and subtle proximal migration of the capitate toward the radius accounting for foreshortening of the wrist. 3. No acute displaced fracture. Comments: If troublesome symptoms persist, progress, or if acute occult fracture is clinically suspected, follow-up cross-sectional imaging, specifically CT.
--- NOTE | 2025-02-09 17:03 | XRR_ITS ---
PROCEDURE INFORMATION: Exam: XR Left Elbow Exam date and time: 02/09/2025 5:20 PM Age: 69 years old Clinical indication: Injury or trauma; Fall; Blunt trauma (contusions or hematomas); Elbow; Left TECHNIQUE: Imaging protocol: Radiologic exam of the left elbow. Views: 3 or more views. Total images: 1 COMPARISON: 1. CR XR wrist LT min 3V* [id number] 11/28/2024 4:17 PM 2. CR XR shoulder LT min 2V* [id number] 02/09/2025 5:20 PM 3. CR XR wrist LT min 3V* [id number] 02/09/2025 5:20 PM FINDINGS: Limitations: No fiducial skin marker was placed at the site of clinical concern. Bones/joints: No acute displaced fracture, subluxation or dislocation. No intrinsic osseous abnormality identified. Soft tissues: Soft tissues are normal as visualized, demonstrating no masses or induration. No manifestations of laceration, subcutaneous emphysema or retained soft tissue radiopaque foreign body. XR/XR elbow LT min 3V* [id number] IMPRESSION: No acute displaced fracture. COMMENTS: If symptoms persist or worsen, additional cross-sectional imaging with fiducial skin marker at clinically troublesome area, or follow-up study in 7-10 days may be warranted based on clinical context.
--- NOTE | 2025-02-09 17:03 | XRR_ITS ---
PROCEDURE INFORMATION: Exam: XR Left Hip Exam date and time: 02/09/2025 5:20 PM Age: 69 years old Clinical indication: Injury or trauma; Fall; Blunt trauma (contusions or hematomas); Left; Hip; Additional info: Fall, w/ pelvis TECHNIQUE: Imaging protocol: Radiologic exam of the left hip. Views: 2 or 3 views hip with pelvis when performed. Total images: 3 COMPARISON: 1. CR XR hip BI 2V wo/w pel [id number] 06/26/2022 4:39 PM 2. CR XR hip LT 2-3V wo/w pel* [id number] 12/12/2020 2:[address] kidney stone [id number] 11/23/2020 9:[address] abdomen pelvis wo con [id number] 12/01/2018 5:34 PM FINDINGS: Limitations: No fiducial skin marker was placed at the site of clinical concern. Bones/joints: No acute displaced fracture, subluxation or dislocation. Severe chronic generalized degenerative changes of the vertebral column, including multilevel osteophytes, degenerative disc height loss, vacuum disc phenomenon, and facet arthrosis, consistent with patient age. Pubic symphysis degenerative changes (osteitis pubis). Sacroiliac joint degenerative manifestations. Generalized bony tendon origin/insertion proliferative enthesopathy, mild. Qualitative demineralization of bones (osteopenia) limiting evaluation for nondisplaced fractures. Soft tissues: Soft tissues are normal as visualized, demonstrating no masses or induration. Gastrointestinal tract: No obstructive findings insofar as bowel visualized. XR/XR hip LT 2-3V wo/w pel* [id number] IMPRESSION: 1. No acute displaced fracture. 2. Advanced age-appropriate degenerative spinal changes, with other stable chronic/non-acute findings as described above. COMMENTS: 1. Qualitative demineralization of bones (osteopenia) limiting evaluation for nondisplaced fractures. 2. If symptoms persist, CT may be considered to exclude occult fracture, or MRI if soft-tissue or ligamentous injury is suspected.
--- NOTE | 2025-02-09 17:03 | XRR_ITS ---
PROCEDURE INFORMATION: Exam: XR Left Shoulder Exam date and time: 02/09/2025 5:20 PM Age: 69 years old Clinical indication: Injury or trauma; Fall; Blunt trauma (contusions or hematomas); Shoulder; Left TECHNIQUE: Imaging protocol: Radiologic exam of the left shoulder. Views: 2 or more views. Total images: 3 COMPARISON: CR XR elbow LT min 3V* [id number] 02/09/2025 5:20 PM FINDINGS: Bones/joints: Lordotic patient projection produces the appearance of elevated scapula such that Sprengel deformity can not be excluded. Mild arthritic changes of the left glenohumeral joint characterized by minimal glenoid articular margin osteophytes without load bearing joint-space narrowing. Acromioclavicular joint mild chronic degenerative arthrosis. No acute displaced fracture, subluxation or dislocation. No intrinsic osseous abnormality identified. Heart/Mediastinum: Calcified coronary artery disease is evident. Soft tissues: Soft tissues are normal as visualized, demonstrating no masses or induration. XR/XR shoulder LT min 2V* [id number] IMPRESSION: 1. Lordotic patient projection produces the appearance of elevated scapula such that Sprengel deformity cannot be excluded. Correlate with shoulder range of motion or any associated congenital anomalies based on clinical context. 2. Mild arthritic changes of the left glenohumeral joint characterized by minimal glenoid articular margin osteophytes without load bearing joint-space narrowing. 3. No acute displaced fracture. 4. Calcified coronary artery disease is evident. (See comment below.) COMMENTS: If the patient is experiencing symptoms referable to coronary artery disease recommend management as per chest pain guidelines. If the patient is asymptomatic consider reviewing modifiable cardiovascular risk factors and managing as per guidelines for primary prevention.
--- OUTSIDE RECORDS SUMMARY | 2025-02-09 17:06 | XMS_ITS | Clinical Summary ---
Author Organization [facility] Address [address] [place] [address] Phone Care Team Providers Care Editor Book Name Role Phone Danika Yeboah CUBA Primary Care Provider [phone] Medications ondansetron (ZOFRAN ODT) 4 mg Tablet, Rapid Dissolve Take 1 Tablet (4 mg) by mouth every 8 hours as needed for Nausea/Emesis . Dissolve tablet on top of tongue, then swallow with saliva. 20 Tablet 1 09/01/2020 Active HYDROcodone-jovita taminophen (NORCO) 10-325 mg Tablet Take 1 Tablet by mouth every 4 hours as needed for Pain, Moderate. 08/30/2020 Active nitroglycerin (NITROSTAT) 0.4 mg Tablet, Sublingual Place 0.4 mg under tongue every 5 minutes as needed for Chest Pain. 08/30/2020 Active potassium chloride (KLOR-CON) 10 mEq Extended Release tablet Take 10 mEq by mouth 1 time daily as needed. 08/30/2020 Active digoxin (LANOXIN) 250 mcg (0.25 mg) tablet Take 250 mcg by mouth daily. 08/30/2020 Active ezetimibe (ZETIA) 10 mg tablet Take 10 mg by mouth daily. 08/30/2020 Active furosemide (LASIX) 40 mg tablet Take 40 mg by mouth 1 time daily as needed (leg swelling). 08/30/2020 Active metoprolol tartrate (LOPRESSOR) 50 mg tablet Take 50 mg by mouth 2 times daily. 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 08/29/2020 Hyperglycemia 08/29/2020 Essential hypertension 08/29/2020 AF (atrial fibrillation) 08/29/2020 Severe obesity (BMI 35.0-39.9) with comorbidity 08/29/2020 Venous stasis dermatitis of both lower extremiti es 08/29/2020 ASHD (arteriosclerotic heart disease) 08/29/2020 Social History Tobacco Use Types Packs/Day Years Used Date Smoking Tobacco: Never Smokeless Tobacco: Never Sex and Gender Information Value Date Recorded Sex Assigned at Not on file Legal Sex Male 10:36 PM CDT Gender Identity Not on file Sexual Orientation Not on file Last Filed Vital Signs Vital Sign Reading Time Taken Comments Blood Pressure 139/97 08/31/2020 4:52 PM CDT Pulse 86 08/31/2020 4:52 PM CDT Temperature 36.7 C (98.1 F) 08/31/2020 4:52 PM CDT Respiratory Rate 16 08/31/2020 4:52 PM CDT Oxygen Saturation - - Inhaled Oxygen Concentration - - Weight 116 kg (255 lb 11.7 oz) 08/30/2020 4:00 A M CDT Height 177.8 cm (5' 10 ) 08/29/2020 5:24 AM CDT Body Mass Index 36.69 08/29/2020 5:24 AM CDT Plan of Treatment Health Maintenance Due Date Last Done Comments Pre-Diabetes and Diabetes Screening 1955 DTAP/TDAP/TD VACCINES (1 - Tdap) 1974 COLORECTAL SCREENING 2000 Colorectal Cancer Screening 2000 FIT-DNA Q 3 years 2000 FIT/FOBT Q 1 year 2000 Flex Sig/CT Colonography Q 5 years 2000 PNEUMOCOCCAL VACCINE 50+ YEARS (1 of 1 - PCV) 03/26/20 05 ZOSTER VACCINE (1 of 2) 2005 RSV VACCINE (60+ or ) (1 - Risk 60-74 years 1-dose series) 2015 INFLUENZA VACCINE (#1) 2024 Medical Devices Implanted Type Area Retail Wireless Associate Device Identifier Shelf Expiration Date Model / Serial / Lot Vascade 5fr-08/29/2020 Implanted:Qty: 1 on 08/29/2020 by Thomas Galvez MD Other Right: Groin [id number] 06/12/2022 / / [id number] Insurance [facility] [id number] Care Teams Editor Book Relationship Specialty Start Date End Date Danika Yeboah CRNP [address] [place] [address] [phone] PCP - General 10/24/20
--- OUTSIDE RECORDS SUMMARY | 2025-02-09 17:06 | XMS_ITS | Clinical Summary ---
Author Organization [facility] Address [address] [place] [address] Phone Care Team Providers Care Program Associate Name Role Phone Unavailable Primary Care Provider Unavailabl e Allergies No known active allergies Medications metoprolol tartrate (LOPRESSOR) 50 mg tablet Take 50 mg by mouth 2 times daily. Active HYDROcodone-jovita taminophen (NORCO) 10-325 mg Tablet Take 1 Tablet by mouth every 4 hours as needed for Pain, Moderate. Active digoxin (LANOXIN) 250 mcg (0.25 mg) tablet Take 250 mcg by mouth daily. Active potassium chloride (KLOR-CON) 10 mEq Extended Release tablet Take 10 mEq by mouth 1 time daily as needed. Active ezetimibe (ZETIA) 10 mg tablet Take 10 mg by mouth daily. Active furosemide (LASIX) 40 mg tablet Take 40 mg by mouth 1 time daily as needed (leg swelling). Active nitroglycerin (NITROSTAT) 0.4 mg Tablet, Sublingual Place 0.4 mg under tongue every 5 minutes as needed for Chest Pain. Active naloxone (NARCAN) 4 mg/spray [place], Non-Aerosol EMERGENCY USE ONLY: Administer 1 spray (4 mg) in one nostril one time. May repeat in alternating nostrils every 2-3 min until responsive or EMS arrives. 2 Each 3 1 Active ondansetron (ZOFRAN ODT) 4 mg Tablet, Rapid Dissolve Take 1 Tablet (4 mg) by mouth every 8 hours as needed for Nausea/Emesis. Dissolve tablet on top of tongue, then swallow with saliva. 20 Tablet 1 1 Active Active Problems Problem Noted Date Diagnosed [...] 16 08/31/2020 4:52 PM CDT Oxygen Saturation 99% 08/31/2020 4:52 PM CDT Inhaled Oxygen Concentration - - Weight 116 [...] (#1) 2024 Medical Devices Implanted Type Area Application Infrastructure Engineer Device Identifier Shelf Expiration Date Model / Serial / Lot Vascade 5fr-08/29/2020 Implanted:Qty: 1 on 08/29/2020 by Thomas Galvez MD Other Right: Ben [id number] 06/12/2022 / / [id number] Insurance [id number] DUAL COMPLETE MCR PPO D-SNP RX [employer] RX Member Subscriber Plan / Payer (Ef fective 2020-Present) Name:Yanira Worrell Relation to Subscriber:Self Name:YANIRA WORRELL Subscriber ID:Not on file Payer ID:Not on file Group ID:[id number] Type:RX Medicare Part D Address: [address] Advance Directives For more information, please contact: [phone] * Default Full Code - Needs Discussion (Latest Code Status on File) Date Activated Date Inactivated Comments 08/29/2020 6:37 AM 08/31/2020 10:33 PM
--- NOTE | 2025-02-09 17:47 | W.ED.FALL ---
HPI - Fall General: Chief Complaint: Fall Stated Complaint: Fell Time Seen by Provider: 02/09/25 16:28 Source: patient Mode of arrival: ambulatory Limitations: no limitations History of Present Illness: Patient is a 69-year-old male who presents to the emergency department complaining of left-sided pain status post fall 6 days ago. States that he tripped and fell, has had persistent pain to his left shoulder, elbow, hand/wrist, and hip/low back area. States he did not hit his head, he has been ambulating okay, chronically uses a cane. States that he has been shuffling slower however due to the pain. He takes [place] every day for chronic pain. No neurological deficits. Vital stable at this time. MD complaint: fall Onset (ago): day(s) (6) Fall from: standing Fall witnessed: yes, by family Place fall occurred: home Loss of consciousness: None Location of injury: back Location of injury - extremities: Left: shoulder, arm, elbow, forearm, hand and thigh Associated symptoms-after fall: Denies abdominal pain, chest pain, headache(s) or neck pain Related Data Home Medications ?Medication ?Instructions ?Recorded ?Confirmed meclizine 12.5 mg tablet 12.5 mg PO DAILY PRN Dizziness Or 09/14/20 01/09/25 Vertigo cholecalciferol (vitamin D3) 25 25 mcg PO BEDTIME 02/12/21 01/09/25 mcg (1,000 unit) capsule acetaminophen 500 mg tablet 500 mg PO QPM 09/03/22 01/09/25 pyridoxine (vitamin B6) 100 mg 50 mg PO DAILY 09/25/22 01/09/25 tablet (Vitamin B-6) vitamin B12 0.5 mg-folic acid 1 mg 1 tab PO DAILY 09/25/22 01/09/25 tablet hydrocodone 10 mg-acetaminophen 1 tab PO Q4-5H PRN Pain, Moderate 03/29/24 01/09/25 325 mg tablet omega 6-hdi-qpm-fish oil 1,000 mg 1 cap PO BID 04/14/24 01/09/25 (120 mg-180 mg) capsule (Fish Oil) Previous Rx's ?Medication ?Instructions ?Recorded glucometer testing kit: strips #1 ea 07/20/19 #100 refill:3 , lancets#100 refills:#100 ASV Bipap adjustment #1 ea 09/20/21 ondansetron 4 mg disintegrating 4 mg PO Q8H PRN nausea and 09/05/22 tablet vomiting #7 tabs albuterol sulfate 90 mcg/actuation 2 puff inhalation Q6H PRN 03/17/24 aerosol inhaler shortness of breath or wheezing #8.5 grams diphenhydramine HCl 25 mg capsule 50 mg (2 x 25 mg) PO DIRECTED 03/17/24 (Benadryl) allergy symptoms #2 caps isosorbide mononitrate 60 mg 60 mg PO BID #200 tabs 04/14/24 tablet,extended release 24 hr digoxin 250 mcg (0.25 mg) tablet See Rx Instructions .Route 04/22/24 .COMPLEX #100 tabs potassium chloride 10 mEq 10 meq PO DAILY #100 tabs 05/24/24 tablet,extended release metoprolol tartrate 50 mg tablet See Rx Instructions .Route 06/19/24 .COMPLEX #270 tabs ezetimibe 10 mg tablet See Rx Instructions .Route 08/02/24 .COMPLEX #100 tabs tamsulosin 0.4 mg capsule 0.4 mg PO DAILY #90 caps 08/09/24 walker rollaid with seat #1 ea 08/09/24 budesonide-formoterol HFA 80 2 puff inhalation BID #10.2 grams 10/13/24 mcg-4.5 mcg/actuation aerosol inhaler (Symbicort) montelukast 10 mg tablet 10 mg PO DAILY #90 tabs 10/18/24 (Singulair) furosemide 20 mg tablet 20 mg PO DAILY #100 tabs 01/09/25 nitroglycerin 0.4 mg sublingual See Rx Instructions .Route 01/09/25 tablet .COMPLEX #25 tabs Allergies Allergy/AdvReac Type Severity Reaction Status Date / Time shellfish derived Allergy Mild ADR-Vomitin Verified 01/09/25 14:30 g erythromycin base Allergy Unknown Verified 01/09/25 14:30 garlic Allergy Unknown Verified 01/09/25 14:30 Iodinated Contrast Media Allergy SWELLING Verified 01/09/25 14:30 lisinopril Allergy Unknown Verified 01/09/25 14:30 simvastatin Allergy Unknown Verified 01/09/25 14:30 Review of Systems General: Reports: 10 or more systems reviewed and unremarkable except in HPI and below Const: Denies: fever(s) or chills Card: Denies: chest pain Resp: Denies: dyspnea or productive cough GI: Denies: abdominal pain, nausea, vomiting or diarrhea : Denies: flank pain Musc: Reports: back pain, extremity pain (LUE), joint pain (left shoulder, elbow, wrist, hip) and limited range of motion; Denies: neck pain, extremity swelling, joint swelling, joint redness, joint warmth or muscle weakness Skin/Breast: Denies: rash Neuro: Denies: headache(s), numbness in extremities or weakness in extremities PFSH ED PFSH: Medical History Fatigue High risk medication use Statin intolerance per chart allergic to simvastatin Restrictive lung disease PFTS 8.23: FEV1 69%; FEV1/FVC normal; RV normal; TLC--reduced; DLCO normal; MODERATE RESTRICTIVE LUNG DISEASE; NO BRONCHODILATOR RESPONSE CAD (coronary artery disease), [place] coronary artery Morbid obesity Obstructive sleep apnea treated with BiPAP currently not using; machine recalled History of multiple cerebrovascular accidents (CVAs) Includes a hemorrhagic stroke with residual hemiparesis and a cerebral infarct in the left hemisphere History of hemorrhagic stroke with residual hemiparesis Cerebral infarction, left hemisphere Lumbar and sacral osteoarthritis Dyslipidemia (high LDL; low HDL) Erectile dysfunction Urolithiasis BPH with obstruction/lower urinary tract symptoms HTN (hypertension) with goal to be determined Opioid contract exists [facility], Dr. Abel Spinal stenosis, lumbar region with neurogenic claudication chronic LBP & Left Hip pain Atrial fibrillation cannot take anticoagulation--had brain bleed while on anticoagulation Surgical History Hx of colonoscopy with polypectomy 9.16--polyps removed but can't find path report--done at [facility] Hx of cardiac cath 12.3.24--patent grafts; but severe [place] CAD--complete LAD occlusion S/P extracorporeal shock wave therapy Stented coronary artery S/P CABG x 3 Status post endovenous radiofrequency ablation of saphenous vein bilateral Family History Father , at age 68 Emphysema lung Mother , at age 49 Heart disease Other CAD (coronary artery disease) Hypertension Lung disease Social History Smoking and tobacco/nicotine status: never used tobacco/nicotine Second hand smoke exposure: No Alcohol intake: never Substance/Drug Use: never Adopted: No Caregiver/support person: No Lives independently: No Household members: spouse Marital status: Number of children: 0 Highest education level completed: Some College, No Degree Current occupational status: retired 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 Current gender identity: Male Physical Exam Const: COMMON NORMALS: no acute distress, patient oriented x3, no limitations, healthy appearing, alert and well nourished HENMT: COMMON NORMALS: normocephalic and atraumatic HEAD & SCALP: normocephalic and atraumatic OTHER: No signs of face head or neck trauma Neck/C-Spine: COMMON NORMALS: full ROM, supple and no meningeal signs Resp: COMMON NORMALS: normal respiratory effort, No use of accessory muscles and clear to auscultation bilaterally AUSCULTATION: clear to auscultation bilaterally Cardio: COMMON NORMALS: regular rate and regular rhythm RATE: regular rate RHYTHM: regular rhythm Extremity: NARRATIVE EXTREMITY EXAM: Diffusely tender to palpation along the entirety of the left upper extremity, with no signs of trauma, bruising, or deformity. He has brace present to left wrist. Full range of motion at all joints. Tender to palpation left posterolateral hip with no shortening or internal/external rotation of the left lower extremity. Neuro: COMMON NORMALS: patient oriented x3, moves all extremities, no focal motor deficits and no sensory deficits noted SENSORIUM/ORIENTATION: Yes alert MENINGEAL SIGNS: Yes no meningeal signs Skin: COMMON NORMALS: no rashes or lesions noted GENERAL SKIN EXAM: no rashes or lesions noted Course Vital Signs: Vital signs: Vital Signs Temperature 98.2 F 02/09/25 16:24 Pulse Rate 64 02/09/25 16:24 Respiratory Rate 14 02/09/25 16:24 Blood Pressure 131/71 02/09/25 16:24 Pulse Oximetry 97 02/09/25 16:24 Oxygen Delivery Me thod Room Air 02/09/25 16:24 MDM - Fall Medical Decision Making This patient presented for left-sided pain, specifically left upper extremity and left hip pain following a fall a week ago. No deformity or significant signs of trauma on exam. X-rays were obtained of the left shoulder, elbow, wrist, and left hip which none of them show any acute traumatic findings. He has chronic degenerative changes throughout and arthritic changes which could be contributing to his poor analgesia but is encouraged to up his dose of [place] at home until he is able to get better relief. There is no further action necessary in the emergency department at this time he is allowed discharge home. He did not hit his head or lose consciousness with the fall. Lab Data Radiology Impressions Elbow X-Ray 02/09/25 17:03 IMPRESSION: No acute displaced fracture. COMMENTS: If symptoms persist or worsen, additional cross-sectional imaging with fiducial skin marker at clinically troublesome area, or follow-up study in 7-10 days may be warranted based on clinical context. Hip/Pelvis X-Ray 02/09/25 17:03 IMPRESSION: 1. No acute displaced fracture. 2. Advanced age-appropriate degenerative spinal changes, with other stable chronic/non-acute findings as described above. COMMENTS: 1. Qualitative demineralization of bones (osteopenia) limiting evaluation for nondisplaced fractures. 2. If symptoms persist, CT may be considered to exclude occult fracture, or MRI if soft-tissue or ligamentous injury is suspected. Shoulder X-Ray 02/09/25 17:03 IMPRESSION: 1. Lordotic patient projection produces the appearance of elevated scapula such that Sprengel deformity cannot be excluded. Correlate with shoulder range of motion or any associated congenital anomalies based on clinical context. 2. Mild arthritic changes of the left glenohumeral joint characterized by minimal glenoid articular margin osteophytes without load bearing joint-space narrowing. 3. No acute displaced fracture. 4. Calcified coronary artery disease is evident. (See comment below.) COMMENTS: If the patient is experiencing symptoms referable to coronary artery disease recommend management as per chest pain guidelines. If the patient is asymptomatic consider reviewing modifiable cardiovascular risk factors and managing as per guidelines for primary prevention. Wrist X-Ray 02/09/25 17:03 IMPRESSION: 1. Severe arthritic changes of the radioscaphoid joint with [id number] articulation, less severe at the triscaphe and 1st carpometacarpal joint and at the lunotriquetral articulation. 2. Pathologic widening of the scapholunate interval is compatible with chronic scapholunate ligament disruption and subtle proximal migration of the capitate toward the radius accounting for foreshortening of the wrist. 3. No acute displaced fracture. Comments: If troublesome symptoms persist, progress, or if acute occult fracture is clinically suspected, follow-up cross-sectional imaging, specifically CT. All radiology interpretation(s) finalized by discharge Discharge Plan Discharge Patient Disposition: Home Clinical Impression: Fall Qualifiers: Encounter type: initial encounter Qualified Code(s): W19.XXXA - Unspecified fall, initial encounter Contusion of multiple sites of left upper extremity Qualifiers: Encounter type: initial encounter Qualified Code(s): S40.022A - Contusion of left upper arm, initial encounter Contusion of hip, left Qualifiers: Encounter type: initial encounter Qualified Code(s): S70.02XA - Contusion of left hip, initial encounter Condition: Stable Prescriptions: No Action (DME) glucometer testing kit: strips #100 refill:3 , lancets#100 refills:#100 Qty: 1 0RF Rx Instructions: glucometer testing kit: strips #100 refill:3 , lancets#100 refills:#100 meclizine 12.5 mg tablet 12.5 mg PO DAILY PRN (Reason: Dizziness Or Vertigo) cholecalciferol (vitamin D3) 25 mcg (1,000 unit) capsule 25 mcg PO BEDTIME omega 9-pru-qao-fish oil [Fish Oil] 1,000 (120-180) mg capsule 1 cap PO BID isosorbide mononitrate 60 mg tablet extended release 24 hr 60 mg PO BID Qty: 200 3RF albuterol sulfate 90 mcg/actuation HFA aerosol inhaler 2 puff inhalation Q6H PRN (Reason: shortness of breath or wheezing) Qty: 8.5 0RF diphenhydramine HCl [Benadryl] 25 mg capsule 50 mg PO DIRECTED Qty: 2 0RF Rx Instructions: Take 50mg (2tabs) 1hr prior to procedure. acetaminophen 500 mg tablet 500 mg PO QPM tamsulosin 0.4 mg capsule 0.4 mg PO DAILY Qty: 90 3RF (DME) walker rollaid with seat See Rx Instructions .Route .MEDSUPPLY Qty: 1 0RF Rx Instructions: As directed furosemide 20 mg tablet 20 mg PO DAILY Qty: 100 1RF nitroglycerin 0.4 mg tablet, sublingual See Rx Instructions .ROUTE .COMPLEX Qty: 25 3RF Dose Instruction: DISSOLVE 1 TABLET UNDER THE TONGUE EVERY 5 MINUTES NEEDED FOR CHEST PAIN. DO NOT EXCEED A TOTAL OF 3 DOSES IN 15 MINUTES. Rx Instructions: DISSOLVE 1 TABLET UNDER THE TONGUE EVERY 5 MINUTES NEEDED FOR CHEST PAIN. DO NOT EXCEED A TOTAL OF 3 DOSES IN 15 MINUTES. budesonide-formoterol [Symbicort] 80-4.5 mcg/actuation HFA aerosol inhaler 2 puff inhalation BID Qty: 10.2 6RF Rx Instructions: 340 B marcelo (DME) ASV Bipap adjustment See Rx Instructions .Route .MEDSUPPLY Qty: 1 0RF Rx Instructions: Back up rate 8-4 ondansetron 4 mg tablet,disintegrating 4 mg PO Q8H PRN (Reason: nausea and vomiting) Qty: 7 0RF digoxin 250 mcg (0.25 mg) tablet See Rx Instructions .ROUTE .COMPLEX Qty: 100 3RF Dose Instruction: TAKE 1 TABLET BY MOUTH DAILY AT 8AM Rx Instructions: TAKE 1 TABLET BY MOUTH DAILY AT 8AM potassium chloride 10 mEq tablet extended release 10 meq PO DAILY Qty: 100 3RF metoprolol tartrate 50 mg tablet See Rx Instructions .ROUTE .COMPLEX Qty: 270 3RF Dose Instruction: TAKE 1 AND 1/2 TABLETS BY MOUTH TWICE DAILY AT 8AM AND 8PM Rx Instructions: TAKE 1 AND 1/2 TABLETS BY MOUTH TWICE DAILY AT 8AM AND 8PM ezetimibe 10 mg tablet See Rx Instructions .ROUTE .COMPLEX Qty: 100 2RF Dose Instruction: TAKE 1 TABLET BY MOUTH DAILY Rx Instructions: TAKE 1 TABLET BY MOUTH DAILY montelukast [Singulair] 10 mg tablet 10 mg PO DAILY Qty: 90 1RF hydrocodone-acetaminophen 10-325 mg tablet 1 tab PO Q4-5H PRN (Reason: Pain, Moderate) pyridoxine (vitamin B6) [Vitamin B-6] 100 mg Tablet 50 mg PO DAILY vitamin M21-[id number] acid 0.5-1 mg Tablet 1 tab PO DAILY Discharge Orders: Discharge ED (Routine); Ordered 02/09/25 Ordered By: Gopi Troncoso Referrals: Seema Garland MD [Primary Care Provider, Family Practice] Patient Instructions: Patient Portal & Kavin Instructions Activity Restrictions/Additional Instructions: Continue taking your prescribed pain medications at home. Rest, ice, compression, and elevation of the extremity. Follow-up with primary care. Return with any new or worsening. Print Language: [place] Coding Level of Care Code ED Membership Sales Representative for Kamila Dubon
== END 2025-02-09 19:42 | disposition home or self-care (01) ==
PROVIDERS: Emergency Provider Physician Assistant; PCP Family Medicine
DX: S40.022A Contusion of left upper arm, initial encounter (principal); S70.02XA Contusion of left hip, initial encounter; W19.XXXA Unspecified fall, initial encounter; E78.5 Hyperlipidemia, unspecified; I25.10 Atherosclerotic heart disease of native coronary artery without angina pectoris; Z86.73 Personal history of transient ischemic attack (TIA), and cerebral infarction without residual deficits; I10 Essential (primary) hypertension
CPT/HCPCS: 73030; 73080; 73110; 73502; 99284

== ENCOUNTER → 2025-02-28 14:59 | Outpatient (BNVA) | payer MEDICARE, SELFPAY | PROVIDERS: PCP Family Medicine | DX: M19.032 Primary osteoarthritis, left wrist (principal) | CPT/HCPCS: 73110 ==

== ENCOUNTER 2025-04-13 15:45 | Outpatient (CLI) | payer MEDICARE, SELFPAY ==
--- NOTE | 2025-04-13 16:00 | USCV_ITS ---
En Worrell Age: 70 Gender: M : 1955 Exam Date: 04/13/2025 16:21 Ordering Phys: Walter Lara MD Technologist: Exam Location: [facility] [place] Indication: swelling HISTORY: Lower extremity swelling. PROCEDURES: Venous duplex imaging was performed in bilateral lower extremities. FINDINGS: No evidence of DVT seen in any vessel visualized at this time. CONCLUSIONS No evidence of right lower extremity DVT. No evidence of left lower extremity DVT. Angel Travis MD (Electronically Signed) Final Date: 13 April 2025 17:12 S
== END 2025-04-13 15:46 | disposition home or self-care (01) ==
PROVIDERS: PCP Family Medicine; Visit Provider Family Medicine
DX: M79.89 Other specified soft tissue disorders (principal)
CPT/HCPCS: 93970